=== PATIENT | male | born 1935 | race Caucasian/White ===

== ENCOUNTER 2023-07-23 15:32 | Inpatient (IN) | payer MEDICARE, BC, SELFPAY ==
[2023-07-21] VITALS (14 sets, daily range): BP systolic 125–183; BP diastolic 58–94; PULSE 90–91; BMI 30.3
[2023-07-21 08:20] LABS: COVID-19 Antigen Negative (Negative)
--- NOTE | 2023-07-21 08:26 | ED.MUSCINJ ---
HPI-Injury
General
Chief Complaint: Fall
Source: patient
Exam Limitations: none
Time Seen by Provider: 07/21/23 08:13
Travel History
Have you had any contact with someone who has COVID-19?: No
Do you have any symptoms of coronavirus? Fever > 100 degrees, chills, cough, shortness of breath, sore throat, loss of taste or smell, muscle aches, or headache?: Yes
Symptoms:: fever
History of Present Illness-Injury
Initial Injury comments:
87-year-old male on Plavix and Eliquis presents after a fall at home. He does not remember the circumstances around the fall. He states he did try to get up and fell back and hit his head again. He denies neck or back pain. No no loss of
consciousness. He feels generally weak. He also had the shakes after following. Denies chest pain abdominal pain or shortness of breath. No other complaints at this time
Past History
Past History
ED Past Medical History: Arrthythmia (a fib with ablation 02/2021), CAD, Cancer (lung), HTN, Hypercholesterolemia and Valvular disease; Negative SC
ED Past Surgical History: Cardiac (stent) and Other (lung resection for CA, cleared as of 05/29/21 no radiation or chemo.)
Social History
Tobacco: Former smoker
Alcohol: Occasional
Drug: None
Personal:
Living: with family
Employment: Retired
Family History
Family History: Other
Phy Exam
Physical Exam
Physical Exam:
General: Well-appearing male no acute respiratory distress
HEENT: Normocephalic atraumatic no obvious scalp abrasion hematoma
Heart: Regular rate and rhythm no murmurs
Lungs: Clear to auscultation bilaterally no wheezing
Extremities: No cyanosis
Skin: Warm or no rashes
Abdomen: Soft nontender nondistended
Injury Course
Orders/Labs/Results
Orders:
Orders
07/21/23 07:57
Electrocardiogram (*1) Urgent
Reason for Study: Fatigue / Weakness
EKG- Treatment ONCE
07/21/23 07:58
COVID-19 Antigen Urgent
Source: Nasal Swab
07/21/23 07:59
Influenza A+B Rapid Molecular Urgent
TISHA Source: Nasal Swab
Specimen Description:
07/21/23 08:13
CMP [Comprehensive Metabolic Panel] Urgent
Complete Blood Count/With Diff Urgent
Blood Culture Routine
TISHA Source: Blood/Venous
Specimen Description:
07/21/23 08:21
CT Head W/o Iv Contrast Urgent
Comment:
Reason For Exam: fall
CR Chest - 2 Views Urgent
Comment:
Reason For Exam: sob
07/21/23 09:42
Lidocaine 2% [Lidocaine Uro-Jet 2%] 1 syringe .ROUTE .STK-MED ONE
07/21/23 10:06
Urinalysis Reflex To Culture Urgent
Date Specimen was Collected: 07/21/23
Time Specimen was Collected: 10:05
Urine Microscopic Reflex Cult Urgent
07/21/23 10:31
Orthostatic VS- Treatment ONCE
07/21/23 10:39
Acetaminophen [Tylenol] 1,000 mg PO NOW STA
07/21/23 11:12
Piperacillin/Tazo 3.375 Gram [Zosyn] 3.375 gram in 50 ml IV NOW
Vancomycin [Vancocin] 1,500 mg 0.9% Sodium Chloride [Nss] 20 ml 0.9% Sodium Chloride 250 ml [Nss] 250 ml IV NOW
07/21/23 11:15
Blood Culture Routine
TISHA Source: Blood/Venous
Specimen Description:
07/21/23 11:16
Lactic Acid Urgent
Abnormal Lab Results
07/21/23 07/21/23
08:13 10:06
WBC 12.8 H 10^3/uL
(4.8-10.8)
RBC 4.35 L 10^6/uL
(4.70-6.10)
MCH 31.5 H pg
(27.0-31.0)
Abs Immat Gran (auto) 0.1 H 10^3/uL
(0-0.05)
Absolute Neuts (auto) 11.2 H 10^3/uL
(1.4-6.5)
Absolute Lymphs (auto) 0.6 L 10^3/uL
(1.2-3.4)
Absolute Monos (auto) 0.9 H 10^3/uL
(0.1-0.6)
Neutrophils % 87.2 H %
(42.2-75.2)
Lymphocytes % 4.6 L %
(20.5-51.1)
Glucose 125 H mg/dl
(70-99)
Total Bilirubin 5.0 H mg/dl
(0.2-1.3)
Total Protein 6.2 L g/dl
(6.3-8.2)
Ur Occult Blood Reflex Trace A
(Negative)
Urine RBC 3-6 A /HPF
(0-2)
Urine Bacteria (Reflex) Few A
(Negative)
07/21/23 08:13
07/21/23 08:13
MDM/Problems Addressed
Differential Diagnosis Includes:
Fall. Etiology unclear. Feels generally weak will check labs and infectious sources including COVID chest x-ray urinalysis. CT of the head pending.
*Critical Care Note
Total Time (30-74mins, 75-104mins- exclusive of procedures): Not Applicable
Update Note
Update Note:
Patient found to have a fever here upon reassessment temperature of 101.5. White blood cell count is 12.8. COVID flu chest x-ray and head CT all without acute findings. Of note, bilirubin is 5.0. He has a prior cholecystectomy. He has had
elevated bilirubins in the past. Tylenol given for fever will start vancomycin and Zosyn for potential bacteremia with pending blood cultures.
ED Attending Note
-
Portions of this chart may have been created with voice recognition software.� Occasional wrong word or��sound alike� substitutions may have occurred due to the inherent limitations of voice recognition software.
Discharge Plan
Departure
Patient Disposition: Admit
Date of Disposition: 07/21/23
Time of Disposition: 11:21
Presentation/result/management discussed w/ accepting MD/DO: Hospitalist
Discharge Problem:
Fever
Prescriptions:
No Action
atorvastatin 40 MG tablet
40 mg PO QPM
budesonide 0.25 MG/2 ML suspension for nebulization
0.5 mg IH BID
ipratropium bromide 0.2 MG/ML solution
0.5 mg inhalation BID
clopidogrel 75 mg Tablet
75 mg PO DAILY Qty: 30 11RF
dofetilide [Tikosyn] 250 mcg capsule
250 mcg PO Q12H Qty: 60 11RF
Eliquis 5 MG tablet
5 mg PO BID Qty: 0 0RF
isosorbide mononitrate 30 mg tablet extended release 24 hr
60 mg PO DAILY
carbidopa-levodopa 25-100 mg tablet
1 tab PO TID@07,12,17
metoprolol succinate 50 mg Tablet Extended Release 24 Hr
50 mg PO DAILY 30 Days Qty: 30 1RF
furosemide [Lasix] 40 mg tablet
80 mg PO DAILY
acetaminophen 325 mg Tablet
650 mg PO Q4HPRN PRN (Reason: SOLER, mild pain, or fever >101F) Qty: 0 0RF
Rx Instructions:
Please purchase over the counter
Referrals:
Reza Mayfield DO [Family Provider] -
Interventions
Interventions:
*Risk Screen - Suicide Last Done: 07/21/23 08:14
*Neglect/Abuse Screening Last Done: 07/21/23 08:14
ED- Fall Risk Assessment Last Done: 07/21/23 08:16
*ED COVID-19 Vaccine History Last Done: 07/21/23 08:13
ED-Musculoskeletal Assessment Last Done: 07/21/23 08:14
ED- Neurological Assessment Last Done: 07/21/23 08:14
ED-Skin Assessment Last Done: 07/21/23 08:14
[2023-07-21 08:29] LABS: % Basophils 0.3 % (0-2); % Eosinophils 0.1 % (0-6); % Immature Granulocytes 0.5 % (0-0.5); % Lymphocytes 4.6 % (20.5-51.1); % Monocytes 7.3 % (1.7-9.3); % Neutrophils 87.2 % (42.2-75.2); Absolute Immature Granulocytes 0.1 10^3/uL (0-0.05); Absolute Lymphocytes 0.6 10^3/uL (1.2-3.4); Absolute Monocytes 0.9 10^3/uL (0.1-0.6); Absolute Neutrophils 11.2 10^3/uL (1.4-6.5); Hematocrit 39.5 % (39.0-52.0); Hemoglobin 13.7 g/dL (13.0-18.0); Mean Corp Hgb Conc. 34.7 g/dL (33.0-37.0); Mean Corpuscular Hgb 31.5 pg (27.0-31.0); Mean Corpuscular Volume 90.8 fL (80.0-94.0); Mean Platelet Volume 9.2 fL (7.4-10.4); Nucleated Red Blood Cells % 0 % (-); Platelet Count 179 10^3/uL (130-400); Red Blood Cell Count 4.35 10^6/uL (4.70-6.10); Red Cell Dist. Width 14.3 % (11.5-14.5); White Blood Cell Count 12.8 10^3/uL (4.8-10.8)
[2023-07-21 08:39] LABS: ALT (SGPT) 19 U/L (0-50); AST (SGOT) 23 U/L (17-59); Albumin 3.7 g/dl (3.5-5.0); Alkaline Phosphatase 99 U/L (38-126); Blood Urea Nitrogen 19 mg/dl (9-20); Calcium 8.4 mg/dl (8.4-10.2); Carbon Dioxide 26 mmol/L (22-30); Chloride 103 mmol/L (98-107); Glucose 125 mg/dl (70-99); Potassium 4.4 mmol/L (3.5-5.1); Sodium 135 mmol/L (135-145); Total Protein 6.2 g/dl (6.3-8.2); eGFR > 60.00
[2023-07-21 10:21] LABS: Urine Albumin Trace (Neg - Trace); Urine Bilirubin Negative (Negative); Urine Character Clear (Clear); Urine Color Yellow; Urine Glucose Negative (Negative); Urine Ketone Negative (Negative); Urine Leukocyte Negative (Negative); Urine Nitrite Negative (Negative); Urine Occult Blood Trace (Negative); Urine Specific Gravity 1.015 (<1.030); Urine Urobilinogen Negative (Neg - 1+)
[2023-07-21 10:31] LABS: Urine Mucus Few
[2023-07-21 10:33] LABS: Urine Bacteria Few (Negative)
[2023-07-21] MEDS: TYLENOL 1000 MG PO (10:41)
[2023-07-21] MEDS: ZOSYN 50 IV (11:25)
--- NOTE | 2023-07-21 11:32 | HPS.HSE ---
Family Physician
-
Family Physician: Reza Mayfield
Chief Complaint
-
fall
History of Present Illness
87 y/o M with PMHx:
Coronary artery disease s/p stents
NSTEMI
Essential hypertension
Hyperlipidemia
Benign prostatic hypertrophy
Gastroesophageal reflux disease
Chronic obstructive pulmonary disease
Asymptomatic carotid stenosis, status post right carotid stent
History of pulseless electrical activity (PEA) arrest
History of atrial tachycardia
Paroxysmal atrial fibrillation with h/o ablation
Vertigo
Parkinson's disease
Hiatal hernia
Severe aortic aortoiliac disease
Diverticulosis
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
who p/w CC of fall. Due to the patient's benign prostatic hypertrophy (he has not seen his urologist in 'years'), his urinary frequency has been increasing. He is having trouble ambulating to the bathroom. Over the last 24 hours the patient has
developed weakness. Today he fell. He says he may have bumped his head but did not have loss of consciousness. He reports he has chronic cough. He has no other acute symptoms. He specifically denies chest pain, shortness of breath, nausea,
vomiting, diarrhea, fevers, headache, visual disturbances, neck stiffness, dysuria, rash, focal neurological deficit.
Medical History
Past Medical History
Past Medical History: Reports Other (as per HPI)
Additional Past Medical History:
as per HPI
Past Surgical History: Reports Other (N/A)
Social History
Tobacco: Former Smoker
Alcohol: Occasional
Drug: None
Family History
Family History: Not pertinent
Allergies / Home Medications
Allergies reflects when Allergies were last updated in [facility].
Home Medications with original date entered in [facility]
Allergy/Medication List:
Allergies
Allergy/AdvReac Type Severity Reaction Status Date / Time
atorvastatin calcium Allergy myalgias Verified 07/21/23 08:55
[From Lipitor]
lisinopril Allergy Unknown Verified 07/21/23 08:55
Home Medications
atorvastatin 40 mg tablet 40 mg PO QPM High cholesterol 02/10/21
budesonide 0.25 mg/2 mL suspension for nebulization 0.5 mg IH BID Lung/breathing issues 02/10/21
ipratropium bromide 0.02 % solution for inhalation 0.5 mg inhalation BID Lung/breathing issues 02/10/21
clopidogrel 75 mg tablet 75 mg PO DAILY heart disease/condition #30 tabs 01/24/22
apixaban 5 mg tablet (Eliquis) 5 mg PO BID Blood clot prevention/tx #0 tabs 01/30/22
dofetilide 250 mcg capsule (Tikosyn) 250 mcg PO Q12H arrhythmia #60 caps 01/30/22
carbidopa 25 mg-levodopa 100 mg tablet 1 tab PO TID@07,12,17 Neurological Condition 06/14/22
isosorbide mononitrate 30 mg tablet,extended release 24 hr 60 mg PO DAILY Heart disease/condition 06/14/22
metoprolol succinate 50 mg tablet,extended release 24 hr 50 mg PO DAILY Heart disease/condition 30 days #30 tabs 06/20/22
furosemide 40 mg tablet (Lasix) 80 mg PO DAILY heart failure 07/31/22
acetaminophen 325 mg tablet 650 mg PO Q4HPRN PRN SOLER, mild pain, or fever >101F #0 tabs 08/17/22
Review of Systems
-
History Source: Patient
A 12 point ROS was completed and negative except as noted: Yes
Physical Exam
Vital Signs
Vital Signs
Temp Pulse Resp BP Pulse Ox
101.5 F H 83 30 161/66 95
07/21/23 10:39 07/21/23 11:15 07/21/23 11:15 07/21/23 11:00 07/21/23 11:15
Physical Exam
General: Other (.)
Laboratory Results
-
07/21/23 08:13
07/21/23 08:13
Laboratory Results
Total Bilirubin 5.0 mg/dl (0.2-1.3) H 07/21/23 08:13
AST 23 U/L (17-59) 07/21/23 08:13
ALT 19 U/L (0-50) 07/21/23 08:13
Alkaline Phosphatase 99 U/L (38-126) 07/21/23 08:13
Impression/Plan
-
Gen: NAD, Awake and alert
Eyes: EOMI, no scleral icterus.
Neck: supple.
CV: RRR, +S1/S2, no m/r/g.
Resp: CTAB, no rales, wheezes, or rhonchi.
Abd: +BS, soft, NT, ND
Skin: No rashes.
Neuro: CN 2-12 intact, non-focal.
Psych: Normal mood and affect.
CXR: Low lung volumes with crowding of the central/vascular markings. Pulmonary vascularity at least top normal.
CT brain: No acute intracranial abnormality.
SIRS:
-leukocytosis and fever
-work up in ER unremarkable (including U/A, CXR, COVID/Flu NEG)
-Vanco/Zosyn given in ER empirically, hold further abx for now
-follow BCxs
-possibly viral or non-infectious
-no abdominal pain or abdominal symptoms so will hold off CT A/P for now
-note, bili is chronically elevated
Other problems:
Coronary artery disease s/p stents with h/o NSTEMI: Cont statin/Plavix/Imdur/BB
Essential hypertension: cont Imdur/BB
Hyperlipidemia: cont statin
Benign prostatic hypertrophy: Start flomax
Gastroesophageal reflux disease: start PPI
Chronic obstructive pulmonary disease: Continue budesonide/ipratropium. Not in acute exacerbation
Asymptomatic carotid stenosis, status post right carotid stent: Continue statin/Plavix
History of pulseless electrical activity (PEA) arrest
History of atrial tachycardia: Continue beta-kt
Paroxysmal atrial fibrillation: Continue beta-kt/Tikosyn/Eliquis
Vertigo
Parkinson's disease: Continue Sinemet
Hiatal hernia
Severe aortic aortoiliac disease
Diverticulosis
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
FULL/Eliquis/OBS/MS
[2023-07-21] MEDS: VANCOCIN 300 ML IV (11:48)
[2023-07-21] MEDS: VANCOCIN 300 MG IV (11:48)
--- NOTE | 2023-07-21 13:10 | CM ---
Cm reviewed medical records.CM met with patient and family in room. Patient confirmed demographics. Patient lives independently with spouse. Patient endorses a history of VN with [facility]. Patient denies history of SNF. Patient uses a cane for
ambulation. Patient has nebulizer. Patient is active with his PCP. Patient uses [facility] for medication services.
FLORES letter given and explained.
PLAN: home vs. SNF if funding available and recommended.
[2023-07-21] MEDS: PROTONIX 40 MG PO (13:36)
[2023-07-21] MEDS: TIKOSYN 250 MCG PO (14:06)
[2023-07-21] MEDS: SINEMET 25-100 1 TABLET PO (17:22)
[2023-07-21] MEDS: LIPITOR 40 MG PO (17:22)
[2023-07-21] MEDS: PULMICORT 0.5 MG INH (18:28)
[2023-07-21] MEDS: ATROVENT NEBULES 0.5 MG INH (18:28)
[2023-07-21] MEDS: TYLENOL 650 MG PO (19:24)
[2023-07-21] MEDS: ELIQUIS 5 MG PO (19:25)
--- NOTE | 2023-07-21 20:30 | PTCARENOTE ---
Patient with a temperature of 102.0. Tylenol given . SEWING SUPERVISOR aware, no further orders given.
[2023-07-22] VITALS (8 sets, daily range): BP systolic 121–164; BP diastolic 58–76; PULSE 75; O2SAT 94–95; BMI 31.0
[2023-07-22] MEDS: TIKOSYN 250 MCG PO ×3 (00:29→20:35)
[2023-07-22] MEDS: TYLENOL 650 MG PO ×3 (03:29→23:24)
[2023-07-22] MEDS: SINEMET 25-100 1 TABLET PO ×3 (06:58→17:19)
[2023-07-22 07:31] LABS: % Basophils 0.3 % (0-2); % Eosinophils 0.2 % (0-6); % Immature Granulocytes 0.4 % (0-0.5); % Lymphocytes 5.3 % (20.5-51.1); % Monocytes 6.6 % (1.7-9.3); % Neutrophils 87.2 % (42.2-75.2); Absolute Lymphocytes 0.5 10^3/uL (1.2-3.4); Absolute Monocytes 0.6 10^3/uL (0.1-0.6); Absolute Neutrophils 8.3 10^3/uL (1.4-6.5); Hematocrit 39.7 % (39.0-52.0); Hemoglobin 14.1 g/dL (13.0-18.0); Mean Corp Hgb Conc. 35.5 g/dL (33.0-37.0); Mean Corpuscular Hgb 31.5 pg (27.0-31.0); Mean Corpuscular Volume 88.6 fL (80.0-94.0); Mean Platelet Volume 9.3 fL (7.4-10.4); Nucleated Red Blood Cells % 0 % (-); Platelet Count 173 10^3/uL (130-400); Red Blood Cell Count 4.48 10^6/uL (4.70-6.10); Red Cell Dist. Width 14.6 % (11.5-14.5); White Blood Cell Count 9.5 10^3/uL (4.8-10.8)
[2023-07-22] MEDS: PULMICORT 0.5 MG INH ×2 (07:46→19:17)
[2023-07-22] MEDS: ATROVENT NEBULES 0.5 MG INH ×2 (07:47→19:18)
[2023-07-22 07:56] LABS: Blood Urea Nitrogen 22 mg/dl (9-20); Calcium 8.3 mg/dl (8.4-10.2); Carbon Dioxide 26 mmol/L (22-30); Chloride 101 mmol/L (98-107); Estimated Creatinine Clearance 57 ml/min; Glucose 118 mg/dl (70-99); Potassium 3.8 mmol/L (3.5-5.1); Sodium 136 mmol/L (135-145); eGFR > 60.00
[2023-07-22] MEDS: PLAVIX 75 MG PO (08:23)
[2023-07-22] MEDS: PROTONIX 40 MG PO (08:23)
[2023-07-22] MEDS: TOPROL XL 50 MG PO (08:23)
[2023-07-22] MEDS: ELIQUIS 5 MG PO ×2 (08:24→20:35)
[2023-07-22] MEDS: IMDUR (EXTENDED RELEASE) 60 MG PO (08:24)
[2023-07-22] MEDS: VITAMIN B-12 1000 MCG PO (08:24)
[2023-07-22] MEDS: VITAMIN C 500 MG PO (08:24)
--- NOTE | 2023-07-22 10:49 | W.PN.HOSP.TC ---
Today's Communication/Plan
-
continue to monitor off abx. Follow BCxs for 48 hours.
Assessment / Plan
Assessment / Plan
Gen: remains NAD, Awake and alert
Eyes: EOMI, no scleral icterus.
Neck: supple.
CV: remains RRR, +S1/S2, no m/r/g.
Resp: remains CTAB, no rales, wheezes, or rhonchi.
Abd: +BS, soft, NT, ND
Skin: No rashes.
Neuro: CN 2-12 intact, non-focal.
Psych: Normal mood and affect.
CXR: Low lung volumes with crowding of the central/vascular markings. Pulmonary vascularity at least top normal.
CT brain: No acute intracranial abnormality.
SIRS:
-leukocytosis and fever. Leukocytosis has resolved.
-work up in ER unremarkable (including U/A, CXR, COVID/Flu NEG)
-Vanco/Zosyn given in ER empirically, hold further abx for now
-follow BCxs (NGTD)
-possibly viral or non-infectious
-no abdominal pain or abdominal symptoms so will hold off CT A/P for now
-note, bili is chronically elevated
Other problems:
Coronary artery disease s/p stents with h/o NSTEMI: Cont statin/Plavix/Imdur/BB
Essential hypertension: cont Imdur/BB
Hyperlipidemia: cont statin
Benign prostatic hypertrophy: Start flomax
Gastroesophageal reflux disease: start PPI
Chronic obstructive pulmonary disease: Continue budesonide/ipratropium.� Not in acute exacerbation
Asymptomatic carotid stenosis, status post right carotid stent: Continue statin/Plavix
History of pulseless electrical activity (PEA) arrest
History of atrial tachycardia: Continue beta-kt
Paroxysmal atrial fibrillation: Continue beta-kt/Tikosyn/Eliquis
Vertigo
Parkinson's disease: Continue Sinemet
Hiatal hernia
Severe aortic aortoiliac disease
Diverticulosis
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
FULL/Eliquis/OBS/MS
Anticipated Discharge: Within 24 hours
Subjective/Interval History
-
Date of Service: July 22, 2023
Objective Data
-
Labs:
Laboratory Results
07/22/23
07:09
WBC 9.5
Hgb 14.1
Hct 39.7
Plt Count 173
Sodium 136
Potassium 3.8
Chloride 101
Carbon Dioxide 26
BUN 22 H
Creatinine 0.9
Glucose 118 H
Calcium 8.3 L
Vital Signs:
Vital Signs
Temp Pulse Resp BP Pulse Ox
98.8 F 86 16 164/69 96
07/22/23 07:00 07/22/23 07:50 07/22/23 07:50 07/22/23 07:00 07/22/23 07:50
I&O
07/21/23 07/22/23 07/23/23
06:59 06:59 06:59
Intake Total 1060 / 1060
Output Total 120 / 120 150 / 150
Balance 940 / 940 -150 / -150
--- NOTE | 2023-07-22 11:25 | CM ---
Patient seen, discussed PT recommendation of SNF. CM discussed patient would be private pay as patient is observation status. CM will call to discuss recommendation with patients , Olivia. CM left voicemail for Olivia on home phone and cell phone.
CM will continue to follow for discharge planning needs.
Plan; SNF recommendation, patient will be private pay under observation status.
[2023-07-22] MEDS: LIPITOR 40 MG PO (17:19)
[2023-07-23 03:09] VITALS: BP 155/77
[2023-07-23 06:00] VITALS: BMI 31.2
[2023-07-23 06:17] LABS: % Basophils 0.3 % (0-2); % Eosinophils 0.4 % (0-6); % Immature Granulocytes 0.6 % (0-0.5); % Lymphocytes 8.9 % (20.5-51.1); % Monocytes 8.4 % (1.7-9.3); % Neutrophils 81.4 % (42.2-75.2); Absolute Immature Granulocytes 0.1 10^3/uL (0-0.05); Absolute Lymphocytes 0.8 10^3/uL (1.2-3.4); Absolute Monocytes 0.8 10^3/uL (0.1-0.6); Absolute Neutrophils 7.3 10^3/uL (1.4-6.5); Hemoglobin 13.2 g/dL (13.0-18.0); Mean Corp Hgb Conc. 34.7 g/dL (33.0-37.0); Mean Corpuscular Hgb 31.6 pg (27.0-31.0); Mean Corpuscular Volume 90.9 fL (80.0-94.0); Mean Platelet Volume 9.7 fL (7.4-10.4); Nucleated Red Blood Cells % 0 % (-); Platelet Count 172 10^3/uL (130-400); Red Blood Cell Count 4.18 10^6/uL (4.70-6.10); Red Cell Dist. Width 15.1 % (11.5-14.5); White Blood Cell Count 8.9 10^3/uL (4.8-10.8)
[2023-07-23] MEDS: SINEMET 25-100 1 TABLET PO ×3 (06:36→17:55)
[2023-07-23 06:38] LABS: ALT (SGPT) 17 U/L (0-50); AST (SGOT) 30 U/L (17-59); Albumin 3.3 g/dl (3.5-5.0); Alkaline Phosphatase 81 U/L (38-126); Blood Urea Nitrogen 30 mg/dl (9-20); Calcium 8.2 mg/dl (8.4-10.2); Carbon Dioxide 27 mmol/L (22-30); Chloride 102 mmol/L (98-107); Estimated Creatinine Clearance 46 ml/min; Glucose 112 mg/dl (70-99); Sodium 133 mmol/L (135-145); Total Bilirubin 3.2 mg/dl (0.2-1.3); eGFR > 60.00
[2023-07-23 07:20] VITALS: BP 166/76
[2023-07-23] MEDS: ATROVENT NEBULES 0.5 MG INH ×2 (07:54→20:27)
[2023-07-23] MEDS: PULMICORT 0.5 MG INH ×2 (07:54→20:27)
[2023-07-23] MEDS: IMDUR (EXTENDED RELEASE) 60 MG PO (09:41)
[2023-07-23] MEDS: TYLENOL 650 MG PO (09:41)
[2023-07-23] MEDS: VITAMIN C 500 MG PO (09:41)
[2023-07-23] MEDS: VITAMIN B-12 1000 MCG PO (09:41)
[2023-07-23] MEDS: TIKOSYN 250 MCG PO ×2 (09:42→21:15)
[2023-07-23] MEDS: ELIQUIS 5 MG PO ×2 (09:42→21:15)
[2023-07-23] MEDS: PROTONIX 40 MG PO (09:42)
[2023-07-23] MEDS: PLAVIX 75 MG PO (09:42)
[2023-07-23] MEDS: TOPROL XL 50 MG PO (09:42)
[2023-07-23 11:15] VITALS: BP 146/69
--- NOTE | 2023-07-23 11:17 | CM ---
Addendum entered by Lili De La Cruz 07/23/23 16:24:
CM received TT, patient switched to inpatient status. CM met with patient, patients , and son bedside, discussed switched to inpatient status. CM discussed SNF recommendation with patient, son, and . Patient not agreeable to SNF, would like
to return home with [facility]. CM will send referral in [facility].
Original Note:
CM received call from patients son, Nelson. Nelson reports he or his sister would be person to contact at their mother has a hard time checking her voicemail. CM discussed PT recommendation of SNF, discussed as patient is observation status, SNF stay
would be private pay. Nelson reports this would not be an option, and his dad would prefer to return home. Nelson reports his father has worked with [employer] in the past and was also doing outpatient PT at [place], along with cardiac rehab.
Nelson reports his father lives in a single story home and otherwise is independent until coming to the hospital. Nelson reports himself or his sister will pick patient up when he is ready for discharge. CM will continue to follow for discharge
planning needs.
Plan; home with [facility] when stable.
[2023-07-23 11:25] LABS: Procalcitonin 0.19 ng/ml (0.0-0.25)
--- NOTE | 2023-07-23 12:41 | W.PN.HOSP.TC ---
Addendum entered and electronically signed by Jovani Keith MD 07/23/23 17:39:
called spouse and d/w case in details over the phone.
Addendum entered and electronically signed by Jovani Keith MD 07/23/23 16:36:
called spouse to update but no response. Left VM.
Original Note:
Today's Communication/Plan
-
Sputum sample.
Tylenol as needed
Chest x-ray repeat noted
Monitor temperature and fever curve
Assessment / Plan
Assessment / Plan
CXR: Low lung volumes with crowding of the central/vascular markings. Pulmonary vascularity at least top normal.
CT brain: No acute intracranial abnormality.
Sepsis likely secondary to viral bronchitis
-leukocytosis and fever. Leukocytosis has resolved.
-work up in ER unremarkable (including U/A, CXR, COVID/Flu NEG)
-Vanco/Zosyn given in ER empirically, hold further abx for now
-follow BCxs (NGTD)
-Check RSV. Pro-Sami noted and not impressive
-Repeat chest x-ray noted negative for any acute infiltrates
-No upper or lower extremity asymmetric swelling
-Will order sputum sample
-no abdominal pain or abdominal symptoms so will hold off CT A/P for now
-no Body rash noted
-note, bili is chronically elevated
Other problems:
Coronary artery disease s/p stents with h/o NSTEMI: Cont statin/Plavix/Imdur/BB
Essential hypertension: cont Imdur/BB
Hyperlipidemia: cont statin
Benign prostatic hypertrophy: Start flomax
Gastroesophageal reflux disease: start PPI
Chronic obstructive pulmonary disease: Continue budesonide/ipratropium.� Not in acute exacerbation
Asymptomatic carotid stenosis, status post right carotid stent: Continue statin/Plavix
History of pulseless electrical activity (PEA) arrest
History of atrial tachycardia: Continue beta-kt
Paroxysmal atrial fibrillation: Continue beta-kt/Tikosyn/Eliquis
Vertigo
Parkinson's disease: Continue Sinemet
Hiatal hernia
Severe aortic aortoiliac disease
Diverticulosis
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
FULL/Eliquis/
PT/OT rec SNF. Case management
Anticipated Discharge: 24 - 48 hours
Subjective/Interval History
-
Date of Service: July 23, 2023
Spiked fever earlier today
States of dry cough with mild intermittent sputum
No abdominal pain nausea vomiting or diarrhea
Denies dysuria
Objective Data
-
Labs:
Laboratory Results
07/23/23
05:28
WBC 8.9
Hgb 13.2
Hct 38.0 L
Plt Count 172
Sodium 133 L
Potassium 4.0
Chloride 102
Carbon Dioxide 27
BUN 30 H
Creatinine 1.1
Glucose 112 H
Calcium 8.2 L
Total Bilirubin 3.2 H
AST 30
ALT 17
Alkaline Phosphatase 81
Vital Signs:
Vital Signs
Temp Pulse Resp BP Pulse Ox
102.8 F H 90 16 166/76 96
07/23/23 07:20 07/23/23 07:54 07/23/23 07:54 07/23/23 07:20 07/23/23 07:54
I&O
07/22/23 07/23/23 07/24/23
06:59 06:59 06:59
Intake Total 1060 / 1060 1440 / 1440
Output Total 120 / 120 375 / 375
Balance 940 / 940 1065 / 1065
Physical Exam
-
General: Well Developed, Well Nourished, No Apparent Distress and Other (warm to touch )
HEENT: Moist Mucous Membranes
Respiratory: Clear to Auscultation
Cardiac: Regular Rhythm, S1/S2 and Murmur (aortic systolic ); Negative Rub or JVD
GI: Soft, Nontender, Nondistended and Normal Bowel Sounds
Musculoskeletal: No Edema
Neuro: Awake, AO x 3, No Motor Deficits and Nonfocal/Grossly Intact
Psych: Calm
[2023-07-23 15:20] VITALS: BP 127/65
[2023-07-23] MEDS: LIPITOR 40 MG PO (17:55)
[2023-07-23 20:35] VITALS: BP 167/75
[2023-07-23 23:27] VITALS: BP 148/70
[2023-07-24 05:08] VITALS: BP 162/79; BMI 31.5
[2023-07-24] MEDS: SINEMET 25-100 1 TABLET PO ×2 (06:05→11:42)
[2023-07-24 07:35] VITALS: BP 158/75
[2023-07-24] MEDS: PULMICORT 0.5 MG INH (07:39)
[2023-07-24] MEDS: ATROVENT NEBULES 0.5 MG INH (07:39)
[2023-07-24] MEDS: IMDUR (EXTENDED RELEASE) 60 MG PO (09:05)
[2023-07-24] MEDS: TIKOSYN 250 MCG PO (09:05)
[2023-07-24] MEDS: MUCINEX 600 MG PO (09:07)
[2023-07-24] MEDS: ELIQUIS 5 MG PO (09:07)
[2023-07-24] MEDS: VITAMIN B-12 1000 MCG PO (09:08)
[2023-07-24] MEDS: PROTONIX 40 MG PO (09:08)
[2023-07-24] MEDS: VITAMIN C 500 MG PO (09:08)
[2023-07-24] MEDS: TOPROL XL 50 MG PO (09:08)
[2023-07-24] MEDS: PLAVIX 75 MG PO (09:08)
[2023-07-24 11:05] VITALS: BP 149/58
--- NOTE | 2023-07-24 11:49 | W.PN.HOSP.TC ---
Today's Communication/Plan
-
dc home
Assessment / Plan
Assessment / Plan
CXR: Low lung volumes with crowding of the central/vascular markings. Pulmonary vascularity at least top normal.
CT brain: No acute intracranial abnormality.
Sepsis likely secondary to viral bronchitis
-leukocytosis and fever. Leukocytosis has resolved.
-work up unremarkable (including U/A, CXR, COVID/Flu NEG)
-Vanco/Zosyn given in ER empirically, hold further abx for now
-follow BCxs (NGTD)
-Check RSV negative. Pro-Sami noted and not impressive
-Repeat chest x-ray noted negative for any acute infiltrates
-No upper or lower extremity asymmetric swelling
-Will order sputum sample and will provide a sample
-no abdominal pain or abdominal symptoms so will hold off CT A/P for now
-no Body rash noted
-note, bili is chronically elevated
Other problems:
Coronary artery disease s/p stents with h/o NSTEMI: Cont statin/Plavix/Imdur/BB
Essential hypertension: cont Imdur/BB
Hyperlipidemia: cont statin
Benign prostatic hypertrophy: Start flomax
Gastroesophageal reflux disease: start PPI
Chronic obstructive pulmonary disease: Continue budesonide/ipratropium.� Not in acute exacerbation
Asymptomatic carotid stenosis, status post right carotid stent: Continue statin/Plavix
History of pulseless electrical activity (PEA) arrest
History of atrial tachycardia: Continue beta-kt
Paroxysmal atrial fibrillation: Continue beta-kt/Tikosyn/Eliquis
Vertigo
Parkinson's disease: Continue Sinemet
Hiatal hernia
Severe aortic aortoiliac disease
Diverticulosis
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
FULL/Eliquis/
PT/OT rec SNF. Case management. Patient and family refused SNF and wants home with [facility]N.
More than 30 minutes spent in discharge including
Final examination of the patient
Summarizing hospital stay
Instructions for continuing care to all relevant caregivers
Preparation of discharge records, prescriptions, and referral forms
Total time spent (in minutes): 40
Anticipated Discharge: Today
Subjective/Interval History
-
Date of Service: July 24, 2023
Feeling better
States improvement of cough
Afebrile for 24 hours
Objective Data
-
Vital Signs:
Vital Signs
Temp Pulse Resp BP Pulse Ox
98.3 F 77 18 149/58 96
07/24/23 11:05 07/24/23 11:05 07/24/23 11:05 07/24/23 11:05 07/24/23 11:05
I&O
07/23/23 07/24/23 07/25/23
06:59 06:59 06:59
Intake Total 1440 / 1440 960 / 960
Output Total 375 / 375
Balance 1065 / 1065 960 / 960
Physical Exam
-
General: Well Developed, Well Nourished and No Apparent Distress
HEENT: Normocephalic, Atraumatic and Moist Mucous Membranes
Respiratory: Clear to Auscultation
Cardiac: Regular Rhythm, S1/S2 and Murmur (aortic systolic ); Negative Rub or JVD
GI: Soft, Nontender, Nondistended and Normal Bowel Sounds
Musculoskeletal: No Edema
Neuro: Awake, Alert, Oriented, AO x 3, No Motor Deficits and Nonfocal/Grossly Intact
Psych: Calm
--- NOTE | 2023-07-24 11:52 | W.DCSUMMARY ---
Discharge Summary
Discharge Data
Date of Admission: 07/23/23
Date of Discharge: 07/24/23
-
Pending Results: No
Hospital Course
88-year-old male past medical history of CAD status post stents, hypertension and hyperlipidemia, BPH, GERD, COPD, carotid stenosis status post stent, history of PEA, atrial tachycardia, atrial fibrillation, regular, Parkinson disease, hiatal
hernia, aortic iliac disease, aortic valve replacement who is presented with complaints of weakness and fever. Patient underwent extensive infectious workup UA was found to be negative. Patient remained chest x-ray x 2 which is negative for acute
infiltrate. Patient COVID, influenza and RSV was checked and found to be negative. Blood cultures remain negative. Patient with fever and cough likely secondary to viral bronchitis. Patient WBC and fever curve down trended. Patient was
tolerating diet. Patient was eval by physical and Occupational Therapy and recommending SNF which patient and family refused. Patient be discharged home with VN.
Discharge Plan
-
Patient Disposition: Home with Home Care
Discharge Diagnosis/Procedures: Sepsis secondary to viral bronchitis
Condition: Fair
Diet: As tolerated
Activity: With assistance and As tolerated
Driving Restrictions: Not until seen by your Dr
Other Services: VN
Referrals:
Reza Mayfield DO [Family Provider] - in less than 1 week
Prescriptions:
New
benzonatate 100 mg Capsule
200 mg PO TIDPRN PRN (Reason: severe cough) Qty: 30 0RF
guaifenesin 600 mg Tablet Extended Release 12hr
600 mg PO Q12 Qty: 30 0RF
Continued
atorvastatin 40 MG tablet
40 mg PO QPM
budesonide 0.25 MG/2 ML suspension for nebulization
0.5 mg IH R BID
ipratropium bromide 0.2 MG/ML solution
0.5 mg inhalation R BID
clopidogrel 75 mg Tablet
75 mg PO DAILY Qty: 30 11RF
dofetilide [Tikosyn] 250 mcg capsule
250 mcg PO Q12H Qty: 60 11RF
Eliquis 5 MG tablet
5 mg PO BID Qty: 0 0RF
isosorbide mononitrate 30 mg tablet extended release 24 hr
60 mg PO DAILY
carbidopa-levodopa 25-100 mg tablet
1 tab PO TID@07,12,17
metoprolol succinate 50 mg Tablet Extended Release 24 Hr
50 mg PO DAILY 30 Days Qty: 30 1RF
cyanocobalamin (vitamin B-12) 1,000 mcg Tablet
1,000 mcg PO DAILY
ascorbic acid (vitamin C) [Vitamin C] 500 mg Tablet
500 mg PO DAILY
Discontinued
(DME) Acapella Device
MISCELLANEOUS
Discharge Orders:
Discharge Patient (As Directed); Ordered 07/24/23
Ordered By: Jovani Keith
Discharge Date and Time
Discharge Date/Time: 07/24/23 15:14
[2023-07-24 12:34] VITALS: BP 156/75; PULSE 70
[2023-07-24 12:40] VITALS: BP 156/75; PULSE 70
== END 2023-07-24 15:14 | disposition home health service (06) | DRG 872 ==
LOC: 4 EAST ACU 15:32
PROVIDERS: Physician Assistant; ADMITTING PHYSICIAN Internal Medicine; ATTENDING PHYSICIAN Hospitalist; EMERGENCY PHYSICIAN Emergency Medicine; FAMILY PHYSICIAN Internal Medicine
DX: A41.89 Other specified sepsis (principal); I25.10 Atherosclerotic heart disease of native coronary artery without angina pectoris; I10 Essential (primary) hypertension; E78.00 Pure hypercholesterolemia, unspecified; N40.0 Benign prostatic hyperplasia without lower urinary tract symptoms; K21.9 Gastro-esophageal reflux disease without esophagitis; J44.89 Other specified chronic obstructive pulmonary disease; I48.0 Paroxysmal atrial fibrillation; G20.A1 Parkinson's disease without dyskinesia, without mention of fluctuations; J20.8 Acute bronchitis due to other specified organisms; I25.2 Old myocardial infarction
CPT/HCPCS: 70450; 71046; 80048; 80053; 81003; 81015; 83605; 84145; 85025; 87040; 87502; 87807; 87811; 93005; 94640; 96365; 96367; 97116; 97162; 97166; 97530; 97535; 99285

== ENCOUNTER 2023-10-03 17:39 | Inpatient (IN) | payer MEDICARE, BC, SELFPAY ==
[2023-10-03] VITALS (15 sets, daily range): BP systolic 115–166; BP diastolic 59–97; BMI 31.3; BMI 30.8
--- NOTE | 2023-10-03 11:52 | ED.GENMED ---
History of Present Illness
General
Chief Complaint: Chest Pain
Source: patient and spouse
Time Seen by Provider: 10/03/23 11:38
Travel History
Have you had any contact with someone who has COVID-19?: No
Do you have any symptoms of coronavirus? Fever > 100 degrees, chills, cough, shortness of breath, sore throat, loss of taste or smell, muscle aches, or headache?: No
History of Present Illness
History of Present Illness:
88-year-old male with extensive cardiac and pulmonary past medical history presenting to the emergency department from outpatient echocardiogram where patient was scheduled to have an echocardiogram today but upon getting there told them he was
feeling chest discomfort, shortness of breath and palpitations, on arrival to the emergency department stating that the chest discomfort and shortness of breath seems to be improved but he is still experiencing the palpitations. Patient's
echocardiogram was believed to be routine monitoring as patient has a history of valvular disease and atrial fibrillation has not had an echocardiogram in around a year. Patient has no other concerns at this time including fevers, chills, rigors,
cough or any other concerns. Patient is anticoagulated on both Eliquis and Plavix. Follows with paddock judge Dr. Banks.
Past History
Past History
ED Past Medical History: Arrthythmia (a fib with ablation 02/2021), CAD, Cancer (lung), HTN, Hypercholesterolemia and Valvular disease; Negative [place]
ED Past Surgical History: Cardiac (stent), Cholecystectomy, Orthopedic and Other (lung resection for CA, cleared as of 05/29/21 no radiation or chemo.)
Social History
Tobacco: Former smoker
Alcohol: Occasional
Drug: None
Personal:
Living: with family
Employment: Retired
Family History
Family History: Other
Review of Systems
Review of Systems
All Other Systems: ROS reviewed and negative except as documented in HPI and ROS
Phy Exam
Physical Exam
Physical Exam:
GENERAL: Alert , in no apparent distress
EYE: Clear conjunctiva
NECK: Supple
ENT: o/p clr, mmm.
CARDIAC: Irregularly irregular, tachycardic rate between 110 and 135 bpm
LUNGS: Clear breath sounds bilaterally, no acute respiratory distress,
NEUROLOGICAL: Alert and oriented
SKIN: Warm and dry, skin intact.
MUSCULOSKELETAL: No edema, well perfused.
PSYCH: Normal and appropriate interaction.
Scores
Heart Failure Risk
Heart Failure Risk Score: Not Applicable
Heart Score for Chest Pain Patients
STEMI patient?: Not applicable
Withdrawal Assessment of Alcohol
Withdrawal Assessment Completed?: Not applicable
Course
Orders/Labs/Results
Orders:
Orders
10/03/23 11:06
EKG [Electrocardiogram (*1)] Urgent
Reason for Study: Chest Pain
EKG- Treatment ONCE
10/03/23 11:44
Diltiazem HCl [Cardizem] 10 mg IV NOW STA
10/03/23 11:54
Basic Metabolic Panel Urgent
Complete Blood Count/With Diff Urgent
Magnesium Urgent
TSH Urgent
Troponin I Urgent
10/03/23 14:15
Diltiazem 125 mg/125 ml Nss [Cardizem] 125 mg in 125 ml IV PER PROTOCOL
Initial dose in mg/hr, then titrate:: 5
Titrate to keep:: Heart rate 80-100 bpm
Titrate by mg/hr:: 5 mg/hr
Frequency of titrations (minutes):: 15
Maximum dose in mg/hr:: 15
10/04/23 07:00
Echo 2D MMode Color/Doppler Routine
Reason for Study: afib, valvular disease
Abnormal Lab Results
10/03/23
11:54
RBC 4.66 L 10^6/uL
(4.70-6.10)
MCH 31.1 H pg
(27.0-31.0)
RDW 14.6 H %
(11.5-14.5)
Abs Immat Gran (auto) 0.1 H 10^3/uL
(0-0.05)
Absolute Neuts (auto) 8.5 H 10^3/uL
(1.4-6.5)
Absolute Lymphs (auto) 1.0 L 10^3/uL
(1.2-3.4)
Neutrophils % 82.3 H %
(42.2-75.2)
Lymphocytes % 9.8 L %
(20.5-51.1)
Sodium 134 L mmol/L
(135-145)
Glucose 152 H mg/dl
(70-99)
10/03/23 11:54
10/03/23 11:54
Vital Signs
Initial and Last Documented VS:
Initial Vital Signs
Temp Pulse Resp BP Pulse Ox
97.6 F 117 18 120/90 97
10/03/23 11:10 10/03/23 11:10 10/03/23 11:10 10/03/23 11:10 10/03/23 11:10
Last Documented Vital Signs
Temp Pulse Resp BP Pulse Ox
97.6 F 119 24 127/74 96
10/03/23 11:10 10/03/23 14:30 10/03/23 14:30 10/03/23 14:00 10/03/23 12:30
MDM/Problems Addressed
Differential Diagnosis Includes:
Cardiac dysrhythmia, valvular dysfunction, ACS, less concern for an infectious etiology
MDM/Problems Addressed:
88-year-old male presenting to the emergency department for evaluation after he was supposed to undergo outpatient echocardiogram as part of routine monitoring of his chronic cardiac complications but upon getting to the exam area was noted to be
experiencing shortness of breath, chest discomfort and palpitations. On arrival to the emergency department patient was found to be in atrial fibrillation with rapid ventricular rate between 110 and 135 bpm. I suspect the arrhythmia to be the main
cause of patient's symptoms as he notes that he has not had any A-fib episodes since his valvular surgery. Patient is anticoagulated on Eliquis and Plavix. He notes previous ablations but never cardioversions. Will attempt to further rate control
with Cardizem IV. Will also discuss with cardiology in hopes to obtain patient's echocardiogram here.
Chronic conditions affecting care: Arrhythmia
Acute Exacerbation and/or Progression of Chronic Illness: Arrhythmia
*Pulse Oximetry
Patient hypoxic: no
*EKG
Interpreted by ED Provider?: Yes
Comparison EKG: changes noted
Heart Rate: 117
Rate: tachycardiac
Rhythm: a-fib
Sunflower: normal axis
Ischemia: ST depression (Anterolateral leads but unchanged from previous)
*Drum Sander Interpretation
Rate: tachycardiac
Rhythm: a-fib
*Critical Care Note
Total Time (30-74mins, 75-104mins- exclusive of procedures): Not Applicable
Data Reviewed
Review of Other/Old Records Reveals: Labs, Records and Testing
Source: patient, records and spouse
Patient Management
Discussion with other providers: Data Integration Analyst
Escalation/DeEscalation of care consider admission/obs:
11:45 AM: Notified on-call paddock judge, Dr. Brewster, who is okay with us ordering echocardiogram here.
12:10 PM: Following IV Cardizem bolus patient's heart rate now in the 80s but still remains in A-fib.
1:40 PM: Patient's heart rate went back to 120 to 130 bpm. He was started on a Cardizem drip. Due to patient's age and past medical history I do not believe he is a good candidate for emergency department synchronized electrical cardioversion.
Oh in agreement. Plan will be to admit to hospitalist service with cardiology team and consult. Hospitalist team for continued evaluation and treatment patient otherwise remains hemodynamically stable.
ED Attending Note
-
Portions of this chart may have been created with voice recognition software.� Occasional wrong word or��sound alike� substitutions may have occurred due to the inherent limitations of voice recognition software.
Discharge Plan
Departure
Patient Disposition: Admit
Date of Disposition: 10/03/23
Time of Disposition: 14:39
Presentation/result/management discussed w/ accepting MD/DO: Hospitalist
Discharge Problem:
Atrial fibrillation with rapid ventricular response
Prescriptions:
No Action
atorvastatin 40 MG tablet
40 mg PO QPM
budesonide 0.25 MG/2 ML suspension for nebulization
0.5 mg IH R BID
ipratropium bromide 0.2 MG/ML solution
0.5 mg inhalation R BID
clopidogrel 75 mg Tablet
75 mg PO DAILY Qty: 30 11RF
dofetilide [Tikosyn] 250 mcg capsule
250 mcg PO Q12H Qty: 60 11RF
Eliquis 5 MG tablet
5 mg PO BID Qty: 0 0RF
isosorbide mononitrate 30 mg tablet extended release 24 hr
60 mg PO DAILY
carbidopa-levodopa 25-100 mg tablet
1 tab PO TID@,,17
metoprolol succinate 50 mg Tablet Extended Release 24 Hr
50 mg PO DAILY 30 Days Qty: 30 1RF
ascorbic acid (vitamin C) [Vitamin C] 500 mg Tablet
500 mg PO DAILY
cholecalciferol (vitamin D3) [Vitamin D3] 25 mcg (1,000 unit) Tablet
25 mcg PO DAILY
Referrals:
Reza Mayfield DO [Family Provider] -
Interventions
Interventions:
*Risk Screen - Suicide Last Done: 10/03/23 11:10
*General Assessment Last Done: 10/03/23 11:10
*Neglect/Abuse Screening Last Done: 10/03/23 11:10
ED- Fall Risk Assessment Last Done: 10/03/23 11:57
*ED COVID-19 Vaccine History Last Done: 10/03/23 11:10
ED- Cardiac Assessment Last Done: 10/03/23 11:39
Discharge Date and Time
Print Language: NIGERIAN
[2023-10-03] MEDS: CARDIZEM 10 MG IV (11:55)
[2023-10-03 12:14] LABS: % Basophils 0.5 % (0-2); % Eosinophils 0.7 % (0-6); % Immature Granulocytes 0.5 % (0-0.5); % Lymphocytes 9.8 % (20.5-51.1); % Monocytes 6.2 % (1.7-9.3); % Neutrophils 82.3 % (42.2-75.2); Absolute Basophils 0.1 10^3/uL (0-0.2); Absolute Eosinophils 0.1 10^3/uL (0-0.7); Absolute Immature Granulocytes 0.1 10^3/uL (0-0.05); Absolute Monocytes 0.6 10^3/uL (0.1-0.6); Absolute Neutrophils 8.5 10^3/uL (1.4-6.5); Hematocrit 40.6 % (39.0-52.0); Hemoglobin 14.5 g/dL (13.0-18.0); Mean Corp Hgb Conc. 35.7 g/dL (33.0-37.0); Mean Corpuscular Hgb 31.1 pg (27.0-31.0); Mean Corpuscular Volume 87.1 fL (80.0-94.0); Mean Platelet Volume 9.3 fL (7.4-10.4); Nucleated Red Blood Cells % 0 % (-); Platelet Count 220 10^3/uL (130-400); Red Blood Cell Count 4.66 10^6/uL (4.70-6.10); Red Cell Dist. Width 14.6 % (11.5-14.5); White Blood Cell Count 10.3 10^3/uL (4.8-10.8)
[2023-10-03 12:17] LABS: Blood Urea Nitrogen 20 mg/dl (9-20); Calcium 8.9 mg/dl (8.4-10.2); Carbon Dioxide 25 mmol/L (22-30); Chloride 107 mmol/L (98-107); Estimated Creatinine Clearance 63 ml/min; Glucose 152 mg/dl (70-99); Magnesium 1.9 mg/dl (1.6-2.3); Potassium 4.2 mmol/L (3.5-5.1); Sodium 134 mmol/L (135-145); eGFR > 60.00
[2023-10-03 12:28] LABS: Troponin I 0.022 ng/ml
[2023-10-03 12:48] LABS: TSH 2.53 uIU/ml (0.47-4.68)
[2023-10-03] MEDS: CARDIZEM 125 IV ×2 (14:15→22:09)
--- NOTE | 2023-10-03 15:03 | CON.CAR ---
Addendum entered and electronically signed by Harpreet Taylor MD 10/03/23 16:47:
Attending addendum: Patient seen and examined. PA note reviewed and findings independently confirmed by me. Briefly, this is an 88-year-old gentleman with a prior history of coronary artery disease, COPD, aortic stenosis treated with transcatheter
aortic valve replacement in August 2022. He underwent stenting of the LAD in May 2022 then presented to [facility] in June 2022 following a PEA arrest. He does have a history of paroxysmal atrial fibrillation. The patient reports
that he has been feeling very well. This morning he awoke and felt chest discomfort and palpitations. He has been compliant with Tikosyn and apixaban. Scheduled and presented to our office and was found to be in atrial fibrillation with a rapid
ventricular response. The initial plan was to proceed with cardioversion, however, the patient had eaten a hoagie shortly before and cardioversion was deferred. He was started on IV Cardizem drip and his heart rates have improved. He is feeling
much better and denies any chest discomfort.
Physical exam
GEN: AAO x 3. No acute distress
HEENT: NC/AT, sclera are anicteric, hearing and nares are normal. MMM
NECK: Supple. Normal JVP
LUNGS: Clear in the anterior and lateral lung cooper bilaterally. No wheezing
CV: Irregularly irregular and tachycardic Normal S1/S2. Murmur: Crescendo decrescendo upper sternal border graded 1/6 in intensity
ABD : Soft, NT, ND, No HSM. Bowel sounds are present.
EXT: No CCE
NEURO: No focal neurologic deficits
Impression/recommendations
-Atrial fibrillation:
--- Continue Tikosyn
--- Continue apixaban
--- We will plan on cardioversion. He states that he has been compliant with his Eliquis and should not need a BRAYAN
--- Transthoracic echocardiogram in a.m.
--- Heart rate control: IV Cardizem
-Aortic stenosis post TAVR:
--- Should have echocardiogram in a.m.
-Chest pressure in the setting of atrial fibrillation
--- Continue to follow troponin
--- History of coronary artery disease
-Chronic heart failure preserved LVEF
--- Seems reasonably well compensated
-Hypertension:
--- Will need good blood pressure control
-Parkinson's disease
Original Note:
Consultation
Consultation Request
Date/Time Consultation Requested: 10/03/2023
Date/Time Consultation Performed: 10/03/2023 at 1445
Requesting Provider: Vance Page PA-C
Performing Provider: Dr. Taylor
Reason for Consultation: Afib w/ RVR
Medical History
-
History of Present Illness:
HPI: Juancarlos is an 88 year old male with PMH of TAVR, CAD, PEA arrest, Chronic HFpEF, paroxysmal atrial fibrillation, hypertension, hyperlipidemia, Parkinson's disease, and COPD. Presents to [facility] for evaluation of SOB and chest tightness. He initially
presented to outpatient motorcycle assembler office for previously scheduled echocardiogram. When he got there, he admitted to feeling chest pressure and SOB and palpitations. He was brought to ER for evaluation where he was found to be in rapid atrial
fibrillation on arrival. He noted that he felt like he was in afib this morning when he woke up. He has had no missed doses of his Tikosyn or his Eliquis. Discussed option of cardioversion in the emergency department, however patient had eaten half
of a hoagie shortly before arriving, so cardioversion was deferred and plan was to admit and observe overnight. He was started on Cardizem gtt and his heart rates are improved. Cardiology consulted for evaluation. With improvement in his heart
rates, his symptoms have improved and he reports he feels excellent at this time. Chest pain, palpitations, and SOB are resolved.
PMH:
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
NSTEMI and PEA arrest 06/14/22
CPR and 4-5 rounds of Epi
CAD
Prior history of CADz with LCx and proximal LAD stents, patent by cath 05/14/2022
NSTEMI and IFR positive long diffuse mid LAD 50-60% stenosis s/p SONDRA to LAD 06/06/22
cath 06/14/22 with stable CAD, patent LAD/circ stents
Chronic HFpEF.
Paroxysmal Afib, atypical atrial flutter and atrial tachycardia
s/p PVI 03/28/15
s/p PVI and atrial flutter ablation 02/14/21
Previous Multaq therapy, stopped after 02/14/21 ablation
Chronic Tikosyn therapy since 06/2021
Chronic Eliquis therapy
HTN
Hyperlipidemia
Parkinson's disease
COPD
Past Medical History
Past Medical History: Other (In HPI)
Past Surgical History: Cardiac (TAVR, PCI of LCx and LAD, PVI 2014 and 2020), Orthopedic and Other (carotid stent)
Social History
Tobacco: Non-Smoker
Alcohol: None
Drug: None
Personal:
Living: With Family
Family History
Family History: Other (CVA)
Allergies / Home Medications
Allergy/AdvReac Type Severity Reaction Status Date / Time
atorvastatin calcium Allergy myalgias Verified 10/03/23 11:14
[From Lipitor]
lisinopril Allergy Unknown Verified 10/03/23 11:14
�Medication �Instructions �Recorded �Confirmed �Type
atorvastatin 40 mg tablet 40 mg PO QPM High cholesterol 02/10/21 10/03/23 History
budesonide 0.25 mg/2 mL suspension 0.5 mg IH R BID Lung/breathing 02/10/21 10/03/23 History
for nebulization issues
ipratropium bromide 0.02 % 0.5 mg inhalation R BID 02/10/21 10/03/23 History
solution for inhalation Lung/breathing issues
clopidogrel 75 mg tablet 75 mg PO DAILY heart 01/24/22 10/03/23 Rx
disease/condition #30 tabs
apixaban 5 mg tablet (Eliquis) 5 mg PO BID Blood clot 01/30/22 10/03/23 Rx
prevention/tx #0 tabs
dofetilide 250 mcg capsule 250 mcg PO Q12H arrhythmia #60 caps 01/30/22 10/03/23 Rx
(Tikosyn)
carbidopa 25 mg-levodopa 100 mg 1 tab PO TID@07,12,17 Neurological 06/14/22 10/03/23 History
tablet Condition
isosorbide mononitrate 30 mg 60 mg PO DAILY Heart 06/14/22 10/03/23 History
tablet,extended release 24 hr disease/condition
metoprolol succinate 50 mg 50 mg PO DAILY Heart 06/20/22 10/03/23 Rx
tablet,extended release 24 hr disease/condition 30 days #30 tabs
ascorbic acid (vitamin C) 500 mg 500 mg PO DAILY Supplement 07/21/23 10/03/23 History
tablet (Vitamin C)
cholecalciferol (vitamin D3) 25 25 mcg PO DAILY 10/03/23 10/03/23 History
mcg (1,000 unit) tablet (Vitamin
D3)
Review of Systems
-
History Source: Patient
All other systems: Negative unless noted
Physical Exam
Vital Signs
Temp Pulse Resp BP Pulse Ox
97.6 F 119 24 127/74 96
10/03/23 11:10 10/03/23 14:30 10/03/23 14:30 10/03/23 14:00 10/03/23 12:30
Lab Results
10/03/23 11:54
10/03/23 11:54
Troponin I 0.022 ng/ml 10/03/23 11:54
Physical Exam
General: Well Developed, Well Nourished and No Apparent Distress
HEENT: Normocephalic, Anicteric and Moist Mucous Membranes
Respiratory: Clear and Non Labored Respirations
Cardiac: S1/S2 and Irregular Rhythm
Musculoskeletal: No Clubbing, No Cyanosis and No Edema
Skin: Warm and Dry
Neuro: AO x 3 and Nonfocal/Grossly Intact
Psych: Calm
Impression / Plan
-
PCP: Dr. Mayfield
Night Filler: Dr. Banks
Impression:
Presented with SOB, palpitations, chest pressure
Paroxysmal Afib w RVR
h/o atypical atrial flutter and atrial tachycardia
s/p PVI 03/28/15
s/p PVI and atrial flutter ablation 02/14/21
Previous Multaq therapy, stopped after 02/14/21 ablation
Chronic Tikosyn therapy since 06/2021
Chronic Eliquis therapy
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
NSTEMI and PEA arrest 06/14/22
CPR and 4-5 rounds of Epi
CAD
Prior history of CADz with LCx and proximal LAD stents, patent by cath 05/14/2022
NSTEMI and IFR positive long diffuse mid LAD 50-60% stenosis s/p SONDRA to LAD 06/06/22
cath 06/14/22 with stable CAD, patent LAD/circ stents
Chronic HFpEF
HTN
Hyperlipidemia
Parkinson's disease
COPD
Echo 05/19/21: EF 70-75%, mild to mod MR, moderate to severe with mild aortic regurgitation with peak/mean 65/29 mmHg and FANY 1.0 cm sq, mild to mod PHTN with PAP 43-48 mmHg
Echo 01/08/22: EF 67%, mod LVH, no regional wall motion abnormalities, septum thicker than posterior wall.� Peak LVOT gradient at rest of 11 mmHg that increases to 38 mmHg with Valsalva. Stage III diastolic dysfunction suggestive of restrictive
filling pattern and increased filling pressures. Normal right ventricular size and function. Moderate eccentric mitral regurgitation.Mild aortic regurgitation and moderate to severe, likely severe aortic stenosis. Peak/mean 77/38 mmHg and FANY�0.98
cm2.
Echo 06/05/22: EF 75%, no WMA, aortic valve peak/mean 63/35 mmHg and FANY 1.0 cm sq, mild aortic regurgitation, mild MR
Echo 08/17/2022: EF 65 to 70%, stage II diastolic dysfunction, severe biatrial dilation, moderate MR, MAC, status post TAVR with mean gradient 6 mmHg trace AI, moderate TR, moderate to severe pulmonary hypertension
Echo 09/17/2022: EF 65 to 70%, moderate LVH, mild to moderate MR, well-seated TAVR with peak/mean gradients 19/8 mmHg, mild TR, estimated PAP 47 mmHg
Echo 10/03/2023: Study pending
Plan:
-Presented for OP echo and due to chest pressure and SOB, was sent to [facility]. Initial EKG reviewed and showed rapid Afib. Started on cardizem gtt for rate control HR improved and with this, symptoms have resolved.
-Remains in atrial fibrillation. Follow on telemetry overnight and if remains in Afib in AM, will plan for CV. Continue cardizem gtt, wean as able.
-Continue Toprol 50mg daily and Tikosyn 250mcg BID. QTc stable at 396 ms by EKG 10/02.
-Has been on uninterrupted anticoagulation with Eliquis 5mg BID, continue.
-Check echo this admission.
-Troponin 0.022. With episode of chest pain this AM, would continue to trend.
-K and mag stable at 4.2 and 1.9 respectively.
-TSH wnl at 2.53.
-BP stable, continue Imdur and Toprol.
-Continue plavix and lipitor with h/o CAD.
-Follow up visit w/ Dr. Banks arranged.
HPI: Juancarlos is an 88 year old male with PMH of TAVR, CAD, PEA arrest, Chronic HFpEF, paroxysmal atrial fibrillation, hypertension, hyperlipidemia, Parkinson's disease, and COPD. Presents to [facility] for evaluation of SOB and chest tightness. He initially
presented to outpatient motorcycle assembler office for previously scheduled echocardiogram. When he got there, he admitted to feeling chest pressure and SOB and palpitations. He was brought to ER for evaluation where he was found to be in rapid atrial
fibrillation on arrival. He noted that he felt like he was in afib this morning when he woke up. He has had no missed doses of his Tikosyn or his Eliquis. Discussed option of cardioversion in the emergency department, however patient had eaten half
of a hoagie shortly before arriving, so cardioversion was deferred and plan was to admit and observe overnight. He was started on Cardizem gtt and his heart rates are improved. Cardiology consulted for evaluation. With improvement in his heart
rates, his symptoms have improved and he reports he feels excellent at this time. Chest pain, palpitations, and SOB are resolved.
Data Reviewed
-
EKG: Tracing Personally Visualized and interpreted
Labs: Labs Reviewed by me
Old Records: Reviewed
--- NOTE | 2023-10-03 17:33 | HPS.HSE ---
Family Physician
-
Family Physician: Reza Mayfield
Chief Complaint
-
palpitations
History of Present Illness
88 y/o M hx of TAVR, CAD, hx of Chronic HFpEF, parox Afib, HTN, HLD, Parkinsons and COPD. He presents to ER For SOB, chest tightness and palpitations - this was noticed at cardiology office while visiting for routine Echo. He was promptly sent to ER
and found to be in Rapid Afib - Cardizem drip started. Patient recalls from earlier today that he felt like he might be in A. Fib.
He is on Tikosyn and Eliquis
Cardioversion was considered in ER but patient ate lunch therefore was admitted with possible Cardioversion to follow tomorrow.
Medical History
Past Medical History
Past Medical History: Reports Other (hx of TAVR, CAD, hx of Chronic HFpEF, parox Afib, HTN, HLD, Parkinsons and COPD. )
Past Surgical History: Reports Other (Cardiac (TAVR, PCI of LCx and LAD, PVI 2014 and 2020), Orthopedic and Other (carotid stent))
Social History
Tobacco: Non-smoker
Alcohol: None
Drug: None
Personal:
Living: With Family
Family History
Family History: Other (CVA)
Allergies / Home Medications
Allergies reflects when Allergies were last updated in [employer].
Home Medications with original date entered in [employer]
Allergy/Medication List:
Allergies
Allergy/AdvReac Type Severity Reaction Status Date / Time
atorvastatin calcium Allergy myalgias Verified 10/03/23 11:14
[From Lipitor]
lisinopril Allergy Unknown Verified 10/03/23 11:14
Home Medications
atorvastatin 40 mg tablet 40 mg PO QPM High cholesterol 02/10/21
budesonide 0.25 mg/2 mL suspension for nebulization 0.5 mg IH R BID Lung/breathing issues 02/10/21
ipratropium bromide 0.02 % solution for inhalation 0.5 mg inhalation R BID Lung/breathing issues 02/10/21
clopidogrel 75 mg tablet 75 mg PO DAILY heart disease/condition #30 tabs 01/24/22
apixaban 5 mg tablet (Eliquis) 5 mg PO BID Blood clot prevention/tx #0 tabs 01/30/22
dofetilide 250 mcg capsule (Tikosyn) 250 mcg PO Q12H arrhythmia #60 caps 01/30/22
carbidopa 25 mg-levodopa 100 mg tablet 1 tab PO TID@07,12,17 Neurological Condition 06/14/22
isosorbide mononitrate 30 mg tablet,extended release 24 hr 60 mg PO DAILY Heart disease/condition 06/14/22
metoprolol succinate 50 mg tablet,extended release 24 hr 50 mg PO DAILY Heart disease/condition 30 days #30 tabs 06/20/22
ascorbic acid (vitamin C) 500 mg tablet (Vitamin C) 500 mg PO DAILY Supplement 07/21/23
cholecalciferol (vitamin D3) 25 mcg (1,000 unit) tablet (Vitamin D3) 25 mcg PO DAILY 10/03/23
Review of Systems
-
A 12 point ROS was completed and negative except as noted: Yes
Physical Exam
Vital Signs
Vital Signs
Temp Pulse Resp BP Pulse Ox
97.6 F 108 21 138/59 95
10/03/23 11:10 10/03/23 15:30 10/03/23 15:30 10/03/23 15:00 10/03/23 15:42
Physical Exam
General: Well Developed and Well Nourished
HEENT: NormoCephalic and Anicteric
Cardiac: Irregular Rhythm and Tachycardia
GI: Soft and Non Tender
Neuro: AO x 3
Psych: Calm
Laboratory Results
-
10/03/23 11:54
10/03/23 11:54
Laboratory Results
Troponin I 0.022 ng/ml 10/03/23 11:54
Data Reviewed
-
Medical Tests (Nuc Med, Echo, EKG etc): Image Personally Visualized and interpreted, Discussed with Physician, Discussed with Patient and Discussed with Family
Lab Data: Labs Reviewed by me, Discussed with Physician, Discussed with Patient and Discussed with Family
Impression/Plan
-
Assessment:
Paroxysmal Afib w RVR
h/o atypical atrial flutter and atrial tachycardia (with prior ablations)
Chronic Tikosyn/Eliquis therapy
- continue IV Cardizem drip - requires intensive monitoring
- continue Tikosyn
- continue Eliquis
- CV planned in morning
- check Echo
Non-LA trop elevation from AFib with RVR
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
NSTEMI and PEA arrest 06/14/22
Hx of CAD s/p stents
Chronic HFpEF
Essential HTN
- continue Plavix/Eliquis
- continue Isosorbide mononitrate
Hyperlipidemia - statin
Parkinson's disease - continue sinemet
COPD - continue inhalers/nebs
DVT ppx: Eliquis
Code: Full
[2023-10-03 18:08] LABS: Troponin I 0.116 ng/ml
[2023-10-03] MEDS: LIPITOR 40 MG PO (20:03)
[2023-10-03] MEDS: ELIQUIS 5 MG PO (20:03)
[2023-10-03] MEDS: TIKOSYN 250 MCG PO (21:24)
[2023-10-03] MEDS: ATROVENT NEBULES 0.5 MG INH (21:55)
[2023-10-03] MEDS: PULMICORT 0.5 MG INH (21:55)
--- NOTE | 2023-10-03 21:55 | PTCARENOTE ---
Pt arrived from the ED via stretcher w/ daughter at bedside. Pt ambulated w/ rolling walker to bed. Pt is AAOx3, VSS, w/o complaints of pain or chest discomfort. Cardizem gtt @10mg/hr heart rate in the 60's. Pt is oriented to room resting
comfortably w/ call ballesteros within reach.
[2023-10-03] MEDS: SINEMET 25-100 1 TABLET PO (22:14)
[2023-10-03 23:52] LABS: Troponin I 0.146 ng/ml
[2023-10-04 03:17] VITALS: BP 128/58
[2023-10-04 05:34] LABS: Hematocrit 38.2 % (39.0-52.0); Hemoglobin 13.1 g/dL (13.0-18.0); Mean Corp Hgb Conc. 34.3 g/dL (33.0-37.0); Mean Corpuscular Hgb 30.8 pg (27.0-31.0); Mean Corpuscular Volume 89.9 fL (80.0-94.0); Mean Platelet Volume 8.9 fL (7.4-10.4); Platelet Count 184 10^3/uL (130-400); Red Blood Cell Count 4.25 10^6/uL (4.70-6.10); Red Cell Dist. Width 14.8 % (11.5-14.5); White Blood Cell Count 8.7 10^3/uL (4.8-10.8)
[2023-10-04 06:10] LABS: Blood Urea Nitrogen 20 mg/dl (9-20); Calcium 8.9 mg/dl (8.4-10.2); Carbon Dioxide 25 mmol/L (22-30); Chloride 106 mmol/L (98-107); Estimated Creatinine Clearance 56 ml/min; Glucose 106 mg/dl (70-99); Potassium 3.9 mmol/L (3.5-5.1); Sodium 137 mmol/L (135-145); eGFR > 60.00
[2023-10-04 06:11] LABS: Troponin I 0.122 ng/ml
[2023-10-04] MEDS: SINEMET 25-100 1 TABLET PO ×2 (06:37→12:37)
[2023-10-04 06:38] LABS: TSH Reflex To Free T4 3.74 uIU/ml (0.47-4.68)
[2023-10-04 07:30] VITALS: BP 146/75
[2023-10-04] MEDS: PULMICORT 0.5 MG INH (07:57)
[2023-10-04] MEDS: ATROVENT NEBULES 0.5 MG INH (07:57)
[2023-10-04] MEDS: ELIQUIS 5 MG PO (08:09)
[2023-10-04] MEDS: TIKOSYN 250 MCG PO (08:09)
[2023-10-04] MEDS: IMDUR (EXTENDED RELEASE) 60 MG PO (08:10)
[2023-10-04] MEDS: PLAVIX 75 MG PO (08:10)
--- NOTE | 2023-10-04 09:44 | W.PN.CARDCBS ---
Addendum entered and electronically signed by Sukhi Mckeon MD 10/04/23 15:12:
I saw and examined the patient.
The MULE OPERATOR or PA's note was reviewed and I agree with the note.
Comment: General: Well developed, well nourished in NAD.
Neck: Supple, no JVD, HJR, carotids +2 B/L, no bruits bilaterally.
Heart: Non displaced PMI, RRR, no murmurs, No S3, S4, no rubs.
Lungs: Clear to auscultation bilaterally, no wheeze, rhonchi, rubs bilaterally,
normal expiratory phase.
Extremities: No clubbing, cyanosis or edema bilaterally.
Neuro: Grossly nonfocal, awake, alert and oriented x3.
Remains in sinus rhythm. He spontaneously converted to sinus rhythm. Echocardiogram stable. Stable cardiology status for discharge. Discussed with primary service and at bedside. Follow-up arranged.
Original Note:
Today's Communication / Plan
-
Continue Toprol and Tikosyn
Echo completed
Continue Eliquis
Follow up arranged
Impression / Plan
-
PCP: Dr. Mayfield
Graphics Software Engineer: Dr. Bakns
Impression:
Presented with SOB, palpitations, chest pressure
Paroxysmal Afib w RVR
h/o atypical atrial flutter and atrial tachycardia
s/p PVI 03/28/15
s/p PVI and atrial flutter ablation 02/14/21
Previous Multaq therapy, stopped after 02/14/21 ablation
Chronic Tikosyn therapy since 06/2021
Chronic Eliquis therapy
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
NSTEMI and PEA arrest 06/14/22
CPR and 4-5 rounds of Epi
CAD
Prior history of CADz with LCx and proximal LAD stents, patent by cath 05/14/2022
NSTEMI and IFR positive long diffuse mid LAD 50-60% stenosis s/p SONDRA to LAD 06/06/22
cath 06/14/22 with stable CAD, patent LAD/circ stents
Chronic HFpEF
HTN
Hyperlipidemia
Parkinson's disease
COPD
Echo 05/19/21: EF 70-75%, mild to mod MR, moderate to severe with mild aortic regurgitation with peak/mean 65/29 mmHg and FANY 1.0 cm sq, mild to mod PHTN with PAP 43-48 mmHg
Echo 01/08/22: EF 67%, mod LVH, no regional wall motion abnormalities, septum thicker than posterior wall.� Peak LVOT gradient at rest of 11 mmHg that increases to 38 mmHg with Valsalva. Stage III diastolic dysfunction suggestive of restrictive
filling pattern and increased filling pressures. Normal right ventricular size and function. Moderate eccentric mitral regurgitation.Mild aortic regurgitation and moderate to severe, likely severe aortic stenosis. Peak/mean 77/38 mmHg and FANY�0.98
cm2.
Echo 06/05/22: EF 75%, no WMA, aortic valve peak/mean 63/35 mmHg and FANY 1.0 cm sq, mild aortic regurgitation, mild MR
Echo 08/17/2022: EF 65 to 70%, stage II diastolic dysfunction, severe biatrial dilation, moderate MR, MAC, status post TAVR with mean gradient 6 mmHg trace AI, moderate TR, moderate to severe pulmonary hypertension
Echo 09/17/2022: EF 65 to 70%, moderate LVH, mild to moderate MR, well-seated TAVR with peak/mean gradients 19/8 mmHg, mild TR, estimated PAP 47 mmHg
Echo 10/04/2023: Study completed, report pending
Plan:
-Presented for OP echo and due to chest pressure and SOB, was sent to [facility]. Found to be in rapid AFib on arrival.
-Admitted overnight on cardizem gtt w/ plan for cardioversion this AM, however spontaneously converted to SR and remains in SR.
-Cardizem stopped. Would continue on prior Toprol 50mg daily and Tikosyn 250mcg BID.
-Continue Eliquis 5mg BID for anticoagulation.
-Echo completed this AM. Await final report.
-Troponin up to 0.146, trending down thereafter. Suspect nonischemic myocardial injury in the setting of rapid afib.
-TSH wnl at 2.53.
-BP stable, continue Imdur and Toprol.
-Continue plavix and lipitor with h/o CAD.
-Follow up visit w/ Dr. Banks arranged.
HPI: Juancarlos is an 88 year old male with PMH of TAVR, CAD, PEA arrest, Chronic HFpEF, paroxysmal atrial fibrillation, hypertension, hyperlipidemia, Parkinson's disease, and COPD. Presents to [facility] for evaluation of SOB and chest tightness. He initially
presented to outpatient resist coater developer office for previously scheduled echocardiogram. When he got there, he admitted to feeling chest pressure and SOB and palpitations. He was brought to ER for evaluation where he was found to be in rapid atrial
fibrillation on arrival. He noted that he felt like he was in afib this morning when he woke up. He has had no missed doses of his Tikosyn or his Eliquis. Discussed option of cardioversion in the emergency department, however patient had eaten half
of a hoagie shortly before arriving, so cardioversion was deferred and plan was to admit and observe overnight. He was started on Cardizem gtt and his heart rates are improved. Cardiology consulted for evaluation. With improvement in his heart
rates, his symptoms have improved and he reports he feels excellent at this time. Chest pain, palpitations, and SOB are resolved.
Progress Note - Graphics Software Engineer
Subjective
Date of Service: October 04, 2023
Feeling well. Back in SR and no complaints.
Objective
Labs:
10/04/23 05:20
10/04/23 05:20
Labs
Hgb 13.1 g/dL (13.0-18.0) 10/04/23 05:20
Hct 38.2 % (39.0-52.0) L 10/04/23 05:20
Plt Count 184 10^3/uL (130-400) 10/04/23 05:20
Sodium 137 mmol/L (135-145) 10/04/23 05:20
Potassium 3.9 mmol/L (3.5-5.1) 10/04/23 05:20
BUN 20 mg/dl (9-20) 10/04/23 05:20
Creatinine 0.9 mg/dL (0.7-1.3) 10/04/23 05:20
Glucose 106 mg/dl (70-99) H 10/04/23 05:20
Troponins
10/03/23 10/03/23 10/03/23
11:54 17:16 22:52
Troponin I 0.022 0.116 H* D 0.146 H* D
10/04/23
05:20
Troponin I 0.122 H*
Vital Signs and I&O:
Vital Signs
Temp Pulse Resp BP Pulse Ox
97.6 F 63 16 146/75 98
10/04/23 07:30 10/04/23 08:00 10/04/23 08:00 10/04/23 07:30 10/04/23 08:00
Vital Signs
Temp Pulse Resp BP Pulse Ox
97.6 F 63 16 146/75 98
10/04/23 07:30 10/04/23 08:00 10/04/23 08:00 10/04/23 07:30 10/04/23 08:00
Intake & Output
10/02/23 10/03/23 10/04/23 10/05/23
06:59 06:59 06:59 06:59
Intake Total 480 / 480
Output Total 200 / 200
Balance 280 / 280
Physical Exam
Physical Exam
GEN: No distress, awake, alert, oriented x3
HEENT: supple, anicteric, mmm
LUNGS: CTA b/l, no wheezes/rales
CV: Reg, S1/S2, 1/6 murmur
EXT: No clubbing, cyanosis, or edema
NEURO: Gross non-focal
SKIN: Warm, dry, no rash
[2023-10-04 09:51] VITALS: BP 148/72; BP 151/64; PULSE 57; O2SAT 97
[2023-10-04 11:26] VITALS: BP 128/54
--- NOTE | 2023-10-04 12:19 | PTCARENOTE ---
Patient in Sinus Bradycardia when received. Notified pathology laboratory director; customer assistance associate and hospitalist. EKG done. Patient will not need cardioversion. Will monitor telemetry. Patient denies complaints at this time.
[2023-10-04 12:21] VITALS: BMI 30.7
--- NOTE | 2023-10-04 13:24 | W.PN.HOSP.TC ---
Today's Communication/Plan
-
dc to home today
Assessment / Plan
Assessment / Plan
Assessment:
Paroxysmal Afib w RVR
h/o atypical atrial flutter and atrial tachycardia (with prior ablations)
Chronic Tikosyn/Eliquis therapy
- converted to NSR with IV cardizem. CV plan stopped.
- d/w Cards. will dc home on BB/Tikosyn
- Echo: unchanged from prior
- f/u Cards office in few weeks
Non-IN trop elevation from AFib with RVR
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
NSTEMI and PEA arrest 06/14/22
Hx of CAD s/p stents
Chronic HFpEF
Essential HTN
- continue Plavix/Eliquis
- continue Isosorbide mononitrate
Hyperlipidemia - statin
Parkinson's disease - continue Sinemet
COPD - continue inhalers/nebs
DVT ppx: Eliquis
Code: Full
More than 30 minutes spent in discharge including
Final examination of the patient
Summarizing hospital stay
Instructions for continuing care to all relevant caregivers
Preparation of discharge records, prescriptions, and referral forms
Total time spent (in minutes): 41
Anticipated Discharge: Today
Subjective/Interval History
-
Date of Service: October 04, 2023
converted to NSR
Objective Data
-
Labs:
Laboratory Results
10/04/23
05:20
WBC 8.7
Hgb 13.1
Hct 38.2 L
Plt Count 184
Sodium 137
Potassium 3.9
Chloride 106
Carbon Dioxide 25
BUN 20
Creatinine 0.9
Glucose 106 H
Calcium 8.9
Vital Signs:
Vital Signs
Temp Pulse Resp BP Pulse Ox
98.0 F 62 14 128/54 94
10/04/23 11:26 10/04/23 11:26 10/04/23 11:26 10/04/23 11:26 10/04/23 11:26
I&O
10/03/23 10/04/23 10/05/23
06:59 06:59 06:59
Intake Total 480 / 480
Output Total 200 / 200
Balance 280 / 280
Physical Exam
-
General: No Apparent Distress
HEENT: Normocephalic and Atraumatic
Respiratory: Negative Wheezes or Rales
Cardiac: Regular Rhythm and S1/S2
GI: Soft and Nontender
Neuro: AO x 3
Hematologic / Lymphatic: No Lymphadenopathy
Psych: Calm
Data Reviewed
-
Total Time Spent with Patient (in minutes): 41
Labs: Labs Reviewed by me
[2023-10-04 13:30] VITALS: BP 122/62
--- NOTE | 2023-10-04 13:34 | W.DS.TRANS ---
DC Summary - Freight Representative
-
Discharge Instructions:
Sleep Apnea Risk High
Discharge Diagnosis/Procedures Rapid Afib
Diet Low Cholesterol
Activity As tolerated
Bathing Restrictions None
Instructions:
Stand-Alone Forms:
Changes to Home Medications: No
Discharge Medications:
DC Medications w/original date entered in [employer]
atorvastatin 40 mg tablet 40 mg PO QPM High cholesterol 02/10/21
ipratropium bromide 0.02 % solution for inhalation 0.5 mg inhalation R BID Lung/breathing issues 02/10/21
clopidogrel 75 mg tablet 75 mg PO DAILY heart disease/condition #30 tabs 01/24/22
apixaban 5 mg tablet (Eliquis) 5 mg PO BID Blood clot prevention/tx #0 tabs 01/30/22
dofetilide 250 mcg capsule (Tikosyn) 250 mcg PO Q12H arrhythmia #60 caps 01/30/22
carbidopa 25 mg-levodopa 100 mg tablet 1 tab PO TID@07,12,17 Neurological Condition 06/14/22
isosorbide mononitrate 30 mg tablet,extended release 24 hr 60 mg PO DAILY Heart disease/condition 06/14/22
metoprolol succinate 50 mg tablet,extended release 24 hr 50 mg PO DAILY Heart disease/condition 30 days #30 tabs 06/20/22
ascorbic acid (vitamin C) 500 mg tablet (Vitamin C) 500 mg PO DAILY Supplement 07/21/23
budesonide 0.5 mg/2 mL suspension for nebulization 0.5 mg inhalation R BID Lung/Breathing Issues 10/03/23
cholecalciferol (vitamin D3) 25 mcg (1,000 unit) tablet (Vitamin D3) 25 mcg PO DAILY Supplement 10/03/23
Home Medication Changes
Pending Results: No
Total time spent discharging patient (in min): 42
[2023-10-04 14:18] VITALS: BMI 30.7
--- NOTE | 2023-10-04 14:20 | PTCARENOTE ---
Reviewed discharge instructions with patient and . Aware of follow up appointment with cardiology. Copy of discharge instructions provided. Both verbalize understanding of teaching. Deny questions at this time. Peripheral IV removed. Tele
removed. Awaiting son for transport.
--- NOTE | 2023-10-04 14:23 | CM ---
met with patient and his at bedside Patient lives with his in house at [address]he amb with a cane and rw,is I with his adl's.his pcp is dr lex pak and he uses [facility] [place] for his pharmcy.pt is adm in afib but
converted to sinus rhythm.he was seen by therapy and has no needs.pt dc home with no needs.patient signed imm letter. or sn to transport home.
== END 2023-10-04 15:37 | disposition home or self-care (01) | DRG 309 ==
LOC: 4 EAST ACU 17:39
PROVIDERS: Physician Assistant; Physician Assistant Medical; Registered Nurse; ADMITTING PHYSICIAN Internal Medicine; CONSULT PHYSICIAN Internal Medicine Interventional Cardiology; EMERGENCY PHYSICIAN Emergency Medicine; FAMILY PHYSICIAN Internal Medicine
DX: I48.0 Paroxysmal atrial fibrillation (principal); I50.32 Chronic diastolic (congestive) heart failure; E78.00 Pure hypercholesterolemia, unspecified; I11.0 Hypertensive heart disease with heart failure; G20.A1 Parkinson's disease without dyskinesia, without mention of fluctuations; J44.9 Chronic obstructive pulmonary disease, unspecified; I25.10 Atherosclerotic heart disease of native coronary artery without angina pectoris; Z85.118 Personal history of other malignant neoplasm of bronchus and lung; Z95.5 Presence of coronary angioplasty implant and graft; Z79.01 Long term (current) use of anticoagulants; Z79.02 Long term (current) use of antithrombotics/antiplatelets; Z79.51 Long term (current) use of inhaled steroids; Z95.3 Presence of xenogenic heart valve; Z87.891 Personal history of nicotine dependence; I25.2 Old myocardial infarction; Z88.8 Allergy status to other drugs, medicaments and biological substances; Z86.74 Personal history of sudden cardiac arrest
CPT/HCPCS: 80048; 83735; 84443; 84484; 85025; 85027; 93005; 93306; 94640; 96374; 96376; 97161; 99285

== ENCOUNTER 2024-06-05 06:41 | Day surgery (SDC) | payer MEDICARE, BC, SELFPAY | END 2024-06-05 07:10 | disposition home or self-care (01) | LOC: CATH 06:41 | PROVIDERS: ATTENDING PHYSICIAN Internal Medicine Cardiovascular Disease; FAMILY PHYSICIAN Internal Medicine; OTHER PHYSICIAN Nuclear Medicine Nuclear Cardiology | DX: I48.0 Paroxysmal atrial fibrillation (principal); Z53.09 Procedure and treatment not carried out because of other contraindication; I11.0 Hypertensive heart disease with heart failure; I50.32 Chronic diastolic (congestive) heart failure; I25.10 Atherosclerotic heart disease of native coronary artery without angina pectoris; E78.5 Hyperlipidemia, unspecified; J44.9 Chronic obstructive pulmonary disease, unspecified; Z95.2 Presence of prosthetic heart valve; Z79.01 Long term (current) use of anticoagulants; Z79.02 Long term (current) use of antithrombotics/antiplatelets | CPT/HCPCS: 93005 ==

== ENCOUNTER 2024-08-05 14:11 | Inpatient (IN) | payer MEDICARE, BC, SELFPAY ==
[2024-08-05] VITALS (12 sets, daily range): BP systolic 137–180; BP diastolic 60–108; BMI 32.9
--- NOTE | 2024-08-05 09:24 | ED.GENMED ---
History of Present Illness
General
Chief Complaint: Fall
Source: patient
Exam Limitations: none
Time Seen by Provider: 08/05/24 09:24
Nursing documentation reviewed up to this point in time: agreed with
History of Present Illness
History of Present Illness:
This is a 89-year-old male with a past medical history of dementia, Parkinson's, A-fib on Eliquis, COPD presents emergency department today with concerns of an unwitnessed fall. Patient currently has no complaints at this time. He states that he
is not entirely sure what happened but recalls sliding off of the toilet this morning and being unable to get up. He was not sure how long he was on the ground for. I spoke to his who reports that she is unsure the exact time how long he was
on the floor as patient was lying on the bathroom floor when his woke up. Patient denies headache, loss of consciousness, neck pain. Patient states that he has no pain in his wrist or lower extremities. He has no back pain. He has no
paresthesias in his upper extremities. He states that since the fall and since EMS got him, he has not tried walking. He does have some bruising to his wrist bilaterally which patient states is chronic from recurrent blood work draws.
Past History
Past History
ED Past Medical History: Arrthythmia (a fib with ablation 02/2021), CAD, Cancer (lung), HTN, Hypercholesterolemia and Valvular disease; Negative DC
ED Past Surgical History: Cardiac (stent), Cholecystectomy, Orthopedic and Other (lung resection for CA, cleared as of 05/29/21 no radiation or chemo.)
Social History
Tobacco: Former smoker
Alcohol: Occasional
Drug: None
Personal:
Living: with family
Employment: Retired
Family History
Family History: Other
Review of Systems
Review of Systems
All Other Systems: ROS reviewed and negative except as documented in HPI and ROS
Phy Exam
Physical Exam
Physical Exam:
General: Patient is well appearing and in no acute distress; non-toxic
Skin: Warm and dry, no rashes or lesions
Head: Normocephalic, atraumatic
Eyes: Sclera non-icteric. EOMs intact. PERRLA.
Neck: No midline cervical spine tenderness
Cardiac: Regular rate and rhythm, no murmurs
Peripheral Vascular: No lower extremity swelling or edema
Pulm: Normal respiratory effort, no wheezes, rales, rhonchi
Neuro: CN II-XII intact, no focal neurologic deficits.
Psychiatric: Appropriate mood and affect.
Course
Orders/Labs/Results
Orders:
Orders
08/05/24 09:38
CT Head W/o Iv Contrast Urgent
Comment:
Reason For Exam: unwitnessed fall on eliquis
08/05/24 09:45
CT Cervical Spine W/o Iv Contr Urgent
Comment:
Reason For Exam: unwitnessed fall, head strike
08/05/24 09:55
Complete Blood Count/With Diff Urgent
08/05/24 10:29
Basic Metabolic Panel Urgent
Creatine Phosphokinase Urgent
08/05/24 11:01
Urinalysis Reflex To Culture Urgent
Date Specimen was Collected: 08/05/24
Time Specimen was Collected: 10:59
Urine Microscopic Reflex Cult Urgent
08/05/24 11:04
Electrocardiogram (*1) Urgent
Reason for Study: Syncope
EKG- Treatment ONCE
CR Chest - 2 Views Urgent
Comment:
Reason For Exam: cough, sob
08/05/24 11:09
0.9% Sodium Chloride 1000 ml [Nss] 1,000 ml IV BOLUS
08/05/24 11:56
Ipratropium/Albuterol Sulfate [Duoneb] 3 ml INH R NOW STA
08/05/24 13:47
Admit/Transfer Patient As Directed
Co-Sign Provider:
Level of Care: Inpatient admission
Assign to:: Telemetry
Physician / Group: darwin
Diagnosis: syncope
Reason for Telemetry: Arrhythmia
Date to Stop Telemetry: 08/08/24
Time to Stop Telemetry: 11:00
Reason for Hospitalization: syncope, fall
Expected length of stay greater than two midnights?: Yes
ELOS- Estimated Length of Stay in days: 2
I certify the patient meets the requirements for IP care: Yes
PRN Pain Medication Management As Directed
May give lesser potent ordered pain med per pt: Yes
preference::
Protocol:: Medication orders for pain may be administered in a
manner that supports deferring to patient preference
when the pt is:
- Requesting an ordered lesser potent pain medication.
Least to most potent pain medications are defined
as: acetaminophen < NSAID < tramadol < opioids
(morphine, oxycodone, hydromorphone).
- Requesting a lesser dose of the same medication IF
ORDERED.
- Requesting a less intrusive route of administration
if both routes are prescribed by the provider (PO <
IV).
08/05/24 13:48
Code Status As Directed
Resuscitation Status: Full Code
08/05/24 13:54
COVID-19 Antigen Urgent
Source: Nasal Swab
Influenza A+B Rapid Molecular Urgent
TISHA Source: Nasal Swab
Specimen Description:
08/05/24 Dinner
Cholesterol Lowering
At Your Request: Full Participation
Cholesterol Lowering: Sodium, 2 Gram
08/08/24 11:00
DC Protocol for Telemetry ONCE
Abnormal Lab Results
08/05/24 08/05/24 08/05/24
09:55 10:29 11:01
RBC 4.52 L 10^6/uL
(4.70-6.10)
RDW 15.5 H %
(11.5-14.5)
Absolute Lymphs (auto) 0.6 L 10^3/uL
(1.2-3.4)
Absolute Monos (auto) 0.8 H 10^3/uL
(0.1-0.6)
Neutrophils % 81.5 H %
(42.2-75.2)
Lymphocytes % 7.2 L %
(20.5-51.1)
Monocytes % 10.4 H %
(1.7-9.3)
BUN 24 H mg/dl
(9-20)
Glucose 108 H mg/dl
(70-99)
Creatine Kinase 885 H U/L
(55-170)
Ur Occult Blood Reflex 4+ A
(Negative)
Urine Bacteria (Reflex) Few A
(Negative)
Urine Albumin (Reflex) 2+ A
(Neg - Trace)
08/05/24 09:55
08/05/24 10:29
Vital Signs
Initial and Last Documented VS:
Initial Vital Signs
Temp Pulse Resp BP Pulse Ox
98.5 F 69 18 163/69 95
08/05/24 08:09 08/05/24 08:09 08/05/24 08:09 08/05/24 08:09 08/05/24 08:09
Last Documented Vital Signs
Temp Pulse Resp BP Pulse Ox
98.5 F 80 16 163/75 95
08/05/24 08:09 08/05/24 18:00 08/05/24 18:07 08/05/24 18:00 08/05/24 18:00
MDM/Problems Addressed
Differential Diagnosis Includes:
Cardiogenic syncope, rhabdomyolysis, vasovagal syncope, mechanical fall, subdural hematoma, epidural hematoma, pneumonia
MDM/Problems Addressed:
89-year-old male with past medical history of lung cancer, A-fib on Eliquis, CHF, coronary artery disease, presents emergency department today with concerns of an unwitnessed fall. His woke up this morning and found him on the ground. There
is a documented history of dementia although daughter declines any history of dementia. Daughter reports that patient is usually very alert and sharp and reports that she feels as though today he seems a bit confused. Daughter is concerned that he
may have syncopized at home considering patient does not recall the events of the fall. CT of the neck negative for any fractures CT of the head negative for any bleeding. Urinalysis does not show any concerning signs of infection. Chest x-ray
negative for pneumonia. EKG shows sinus rhythm with ST abnormality laterally however no reciprocal changes unchanged compared to previous EKG. In light of change in mentation per daughter, and possible syncopal episode, will admit overnight for
observation telemetry monitoring. Patient referred for admission.
Chronic conditions affecting care:
copd, afib, parksions
*Pulse Oximetry
Patient hypoxic: no
*EKG
Interpreted by ED Provider?: Yes
EKG Intrepretation Date: 08/05/24
Interpretation: normal
Comparison EKG: changes noted
Heart Rate: 72
Rate: normal
Rhythm: sinus
[place]: normal axis
Interval: normal interval
*Middle School Librarian Interpretation
Rate: normal
Interpretation: normal
Heart Rate: 70
Rhythm: sinus
*Critical Care Note
Total Time (30-74mins, 75-104mins- exclusive of procedures): Not Applicable
Data Reviewed
Review of Other/Old Records Reveals: Records (Reviewed discharge summary from 09/14/2023 patient seen for A-fib)
Source: patient and records
Update Note
Update Note:
11:00 am--Daughter arrives to ER and reports that pt does not currently have dementia. Daughter is concerned about potential syncopal episode as patient does not recall the event at all and this is unlike him per daughter, daughter reports that
patient is usually very alert and has good memory.
ED Attending Note
-
Portions of this chart may have been created with voice recognition software.� Occasional wrong word or��sound alike� substitutions may have occurred due to the inherent limitations of voice recognition software.
Discharge Plan
Departure
Patient Disposition: Admit
Date of Disposition: 08/05/24
Time of Disposition: 12:49
Admit to: Telemetry
Presentation/result/management discussed w/ accepting MD/DO: Hospitalist
Patient with high blood pressure during this ER visit?: Yes
Condition: Fair
Discharge Problem:
Unwitnessed fall
Interventions
Interventions:
*Risk Screen - Suicide Last Done: 08/05/24 08:09
*General Assessment Last Done: 08/05/24 08:09
*Neglect/Abuse Screening Last Done: 08/05/24 08:09
*ED COVID-19 Vaccine History Last Done: 08/05/24 10:55
ED- Cardiac Assessment Last Done: 08/05/24 09:53
ED-Musculoskeletal Assessment Last Done: 08/05/24 09:53
ED- Neurological Assessment Last Done: 08/05/24 09:53
ED- Pulmonary Assessment Last Done: 08/05/24 09:53
ED-Skin Assessment Last Done: 08/05/24 09:53
[2024-08-05 10:05] LABS: % Basophils 0.4 % (0-2); % Eosinophils 0.1 % (0-6); % Immature Granulocytes 0.4 % (0-0.5); % Lymphocytes 7.2 % (20.5-51.1); % Monocytes 10.4 % (1.7-9.3); % Neutrophils 81.5 % (42.2-75.2); Absolute Lymphocytes 0.6 10^3/uL (1.2-3.4); Absolute Monocytes 0.8 10^3/uL (0.1-0.6); Absolute Neutrophils 6.3 10^3/uL (1.4-6.5); Hematocrit 40.9 % (39.0-52.0); Hemoglobin 13.8 g/dL (13.0-18.0); Mean Corp Hgb Conc. 33.7 g/dL (33.0-37.0); Mean Corpuscular Hgb 30.5 pg (27.0-31.0); Mean Corpuscular Volume 90.5 fL (80.0-94.0); Mean Platelet Volume 9.3 fL (7.4-10.4); Nucleated Red Blood Cells % 0 % (-); Platelet Count 169 10^3/uL (130-400); Red Blood Cell Count 4.52 10^6/uL (4.70-6.10); Red Cell Dist. Width 15.5 % (11.5-14.5); White Blood Cell Count 7.8 10^3/uL (4.8-10.8)
[2024-08-05 11:04] LABS: Blood Urea Nitrogen 24 mg/dl (9-20); Carbon Dioxide 25 mmol/L (22-30); Chloride 105 mmol/L (98-107); Creatine Phosphokinase 885 U/L (55-170); Glucose 108 mg/dl (70-99); Sodium 139 mmol/L (135-145); eGFR > 60.00
[2024-08-05 11:13] LABS: Urine Albumin 2+ (Neg - Trace); Urine Bilirubin Negative (Negative); Urine Character Clear (Clear); Urine Color Yellow; Urine Glucose Negative (Negative); Urine Ketone Negative (Negative); Urine Leukocyte Negative (Negative); Urine Nitrite Negative (Negative); Urine Occult Blood 4+ (Negative); Urine Specific Gravity 1.025 (<1.030); Urine Urobilinogen Negative (Neg - 1+)
[2024-08-05] MEDS: NSS 1000 IV ×2 (11:13→21:53)
[2024-08-05] MEDS: DUONEB 3 ML INH ×2 (12:00→21:46)
[2024-08-05 13:02] LABS: Urine Hyaline Cast 0-2 /LPF (0-2); Urine Mucus Few
[2024-08-05 13:03] LABS: Urine Bacteria Few (Negative); Urine Squamous Cell 0-2 /LPF (Few); Urine White Cell 0-2 /HPF (0-5)
[2024-08-05 13:04] LABS: Urine Red Blood Cell 0-2 /HPF (0-2)
--- NOTE | 2024-08-05 13:51 | HPS.HSE ---
Family Physician
-
Family Physician: Reza Mayfield
Chief Complaint
-
possible syncope
History of Present Illness
89-year-old male past medical history of paroxysmal atrial fibrillation on Eliquis, aortic stenosis status post TAVR, NSTEMI, CAD status post stents, PEA arrest, HFpEF, right lung cancer status post resection, hypertension, hyperlipidemia, Parkinson
disease, pituitary mass, presenting with unwitnessed fall. He denies any complaints at this time. He is not entirely sure what happened but recalls sliding of the toilet this morning unable to get up. He was found in the bathroom on the ground by
his .
He was not sure how long he was on the ground. is unsure about how long he has been on the ground. He denies any headache, loss of consciousness or neck pain. Denies back pain. Denies numbness or tingling in the upper extremities. He has
not tried walking since the fall. He has bruising of his bilateral wrists which is chronic from recurrent blood work draws. He has some abrasions on his right lower leg.
Daughter notes that he is also currently confused and does not have a history of dementia.
He has chronic congestion and cough which was attributed to his history of lung cancer status post right lung resection. No history of smoking or COPD. He was started on azithromycin 2 days ago by his primary care physician.
He is scheduled for ablation for A-fib next week.
Medical History
Past Medical History
Past Medical History: Reports Other ( paroxysmal atrial fibrillation on Eliquis, aortic stenosis status post TAVR, NSTEMI, CAD status post stents, PEA arrest, HFpEF, right lung cancer status post resection, hypertension, hyperlipidemia, Parkinson
disease, pituitary mass)
Past Surgical History: Reports None
Social History
Tobacco: Non-smoker
Alcohol: None
Drug: None
Family History
Family History: Not pertinent
Allergies / Home Medications
Allergies reflects when Allergies were last updated in [facility].
Home Medications with original date entered in [facility]
Allergy/Medication List:
Allergies
Allergy/AdvReac Type Severity Reaction Status Date / Time
lisinopril Allergy Unknown Verified 08/05/24 08:05
Home Medications
atorvastatin 40 mg tablet 40 mg PO HS High cholesterol 02/10/21
clopidogrel 75 mg tablet 75 mg PO DAILY heart disease/condition #30 tabs 01/24/22
apixaban 5 mg tablet (Eliquis) 5 mg PO BID Blood clot prevention/tx #0 tabs 01/30/22
dofetilide 250 mcg capsule (Tikosyn) 250 mcg PO Q12H arrhythmia #60 caps 01/30/22
carbidopa 25 mg-levodopa 100 mg tablet 1 tab PO TID Neurological Condition 06/14/22
ipratropium bromide 17 mcg/actuation HFA aerosol inhaler 1 puff inhalation DAILY 07/27/24
isosorbide mononitrate 60 mg tablet,extended release 24 hr 60 mg PO DAILY 07/27/24
metoprolol succinate 50 mg tablet,extended release 24 hr 75 mg PO DAILY 07/27/24
budesonide 0.5 mg/2 mL suspension for nebulization 0.5 mg inhalation R BID 08/05/24
Review of Systems
-
History Source: Patient
A 12 point ROS was completed and negative except as noted: Yes
Constitutional: Reports No Symptoms
EENT: Reports No Symptoms
Respiratory: Reports No Symptoms
Cardiac: Reports No Symptoms
Abdomen/GI: Reports No Symptoms
: Reports No Symptoms
Musculoskeletal: Reports No Symptoms
Skin: Reports No Symptoms
Neurological: Reports No Symptoms
Endocrine: Reports No Symptoms
Hematologic/Lymphatic: Reports No Symptoms
Psych: Reports No Symptoms
Physical Exam
Vital Signs
Vital Signs
Temp Pulse Resp BP Pulse Ox
98.5 F 76 27 163/68 95
08/05/24 08:09 08/05/24 13:00 08/05/24 13:00 08/05/24 13:00 08/05/24 12:06
Physical Exam
General: Well Developed, Well Nourished and No Apparent Distress
HEENT: NormoCephalic, Moist mucous membranes and Atraumatic
Respiratory: Wheezes
Cardiac: S1/S2 and Regular Rhythm; No Murmur or Rub
GI: Soft, Non Tender, Non Distended and Normal Bowel Sounds; No Organomegaly
Rectal: Deferred by Provider
Musculoskeletal: No Clubbing, No Cyanosis and No Edema
Skin: No Rash
Neuro: Nonfocal/grossly intact
Laboratory Results
-
08/05/24 09:55
08/05/24 10:29
Laboratory Results
Total Bilirubin Cancelled 08/05/24 10:29
AST Cancelled 08/05/24 10:29
ALT Cancelled 08/05/24 10:29
Alkaline Phosphatase Cancelled 08/05/24 10:29
Data Reviewed
-
Lab Data: Labs Reviewed by me
Old Records: Reviewed
Impression/Plan
-
IMPRESSION:
PLAN:
# Unwitnessed fall/possible syncopal episode possibly cardiac given history of PEA arrest versus secondary to acute bronchitis
-CT cervical spine shows no fracture, CT head negative
-EKG shows sinus rhythm with premature supraventricular complex
-Telemetry monitoring
-Check orthostatic vital signs
-Gentle IV fluids
-Having some minor bleeding from abrasions, hold Eliquis for today
# Acute bronchitis
# History of lung cancer status post right lung resection
-Chest x-ray shows cardiomegaly, no overt pulmonary edema
-Today is day 3 of azithromycin
-Hold further azithromycin
-DuoNebs every 6
-Start dexamethasone 4 mg daily
-Check COVID and influenza
# Metabolic encephalopathy possibly from acute bronchitis
-No history of dementia as per daughter
-Urinalysis negative
# Mild rhabdomyolysis
-CPK of 885
-IV fluids
Paroxysmal atrial fibrillation
-Continue Tikosyn
-Hold Eliquis for today
-Scheduled for ablation next week
Aortic stenosis status post TAVR
CAD with stents/history of NSTEMI
-Continue Plavix
-Continue isosorbide mononitrate
-Continue metoprolol
History of PEA arrest
Chronic HFpEF
Essential hypertension
Hyperlipidemia
Parkinson's disease
-Continue carbidopa-levodopa
COPD
-Continue budesonide, ipratropium
Full code
DVT prophylaxis�Eliquis
Cardiac diet
[2024-08-05 14:34] LABS: COVID-19 Antigen Negative (Negative)
[2024-08-05] MEDS: SINEMET 25-100 1 TABLET PO (21:43)
[2024-08-05] MEDS: DECADRON 4 MG IV (21:43)
[2024-08-05] MEDS: LIPITOR 40 MG PO (21:45)
[2024-08-05] MEDS: TIKOSYN 250 MCG PO (21:45)
[2024-08-05] MEDS: PULMICORT 0.5 MG INH (21:46)
[2024-08-05] MEDS: TYLENOL 650 MG PO (22:32)
[2024-08-06] VITALS (7 sets, daily range): BP systolic 134–165; BP diastolic 64–97; PULSE 83; O2SAT 96
[2024-08-06] MEDS: SINEMET 25-100 PO (00:06)
[2024-08-06] MEDS: PULMICORT 0.5 MG INH ×2 (07:25→19:24)
[2024-08-06] MEDS: DUONEB 3 ML INH ×4 (07:25→19:24)
[2024-08-06 07:30] LABS: % Basophils 0.1 % (0-2); % Immature Granulocytes 0.5 % (0-0.5); % Lymphocytes 5.4 % (20.5-51.1); % Monocytes 5.3 % (1.7-9.3); % Neutrophils 88.7 % (42.2-75.2); Absolute Lymphocytes 0.5 10^3/uL (1.2-3.4); Absolute Monocytes 0.5 10^3/uL (0.1-0.6); Absolute Neutrophils 7.6 10^3/uL (1.4-6.5); Mean Corp Hgb Conc. 32.5 g/dL (33.0-37.0); Mean Corpuscular Hgb 30.5 pg (27.0-31.0); Mean Corpuscular Volume 93.9 fL (80.0-94.0); Mean Platelet Volume 9.1 fL (7.4-10.4); Nucleated Red Blood Cells % 0 % (-); Platelet Count 168 10^3/uL (130-400); Red Blood Cell Count 4.26 10^6/uL (4.70-6.10); Red Cell Dist. Width 15.8 % (11.5-14.5); White Blood Cell Count 8.5 10^3/uL (4.8-10.8)
[2024-08-06 08:02] LABS: Glucose - Point of Care 133 mg/dl (70-99)
[2024-08-06 08:47] LABS: ALT (SGPT) 14 U/L (0-50); AST (SGOT) 52 U/L (17-59); Albumin 3.5 g/dl (3.5-5.0); Alkaline Phosphatase 77 U/L (38-126); Blood Urea Nitrogen 18 mg/dl (9-20); Calcium 8.2 mg/dl (8.4-10.2); Carbon Dioxide 22 mmol/L (22-30); Chloride 106 mmol/L (98-107); Estimated Creatinine Clearance 70 ml/min; Glucose 140 mg/dl (70-99); Potassium 4.3 mmol/L (3.5-5.1); Sodium 138 mmol/L (135-145); Total Bilirubin 2.2 mg/dl (0.2-1.3); Total Protein 6.1 g/dl (6.3-8.2); eGFR > 60.00
[2024-08-06] MEDS: PLAVIX 75 MG PO (08:55)
[2024-08-06] MEDS: TOPROL XL 75 MG PO (08:55)
[2024-08-06] MEDS: SINEMET 25-100 1 TABLET PO ×3 (08:55→20:25)
[2024-08-06] MEDS: IMDUR (EXTENDED RELEASE) 60 MG PO (08:55)
[2024-08-06] MEDS: TIKOSYN 250 MCG PO ×2 (09:25→20:24)
[2024-08-06 09:28] LABS: Creatine Phosphokinase 621 U/L (55-170)
--- NOTE | 2024-08-06 10:47 | CM ---
Addendum entered by Christine Ramsey 08/06/24 14:16:
Referral placed in [facility] for [place] [facility].
Original Note:
Patient seen bedside. +Flu
IA completed.
Patient lives with spouse in a 1 story home with no step to enter.
patient independent prior to admission, uses a cane and RW occasionally.
Patient drives.
Patient had [facility] in the past and would like them again if needed.
PT/OT recommendations (P).
PCP: Tran
Pharmacy:[facility]
Plan: home with possible VN
[2024-08-06 12:27] LABS: Glucose - Point of Care 122 mg/dl (70-99)
[2024-08-06] MEDS: LR 1000 IV (12:58)
[2024-08-06] MEDS: TAMIFLU 75 MG PO ×2 (12:59→20:24)
--- NOTE | 2024-08-06 14:34 | W.PN.HOSP.TC ---
Today's Communication/Plan
-
echo
fluids
tamiflu
resume eliquis
pt/ot
Assessment / Plan
Assessment / Plan
Physical Exam
General: Well Developed, Well Nourished and No Apparent Distress
HEENT: NormoCephalic, Moist mucous membranes and Atraumatic
Respiratory: Wheezes
Cardiac: S1/S2 and Regular Rhythm; No Murmur or Rub
GI: Soft, Non Tender, Non Distended and Normal Bowel Sounds; No Organomegaly
Rectal: Deferred by Provider
Musculoskeletal: No Clubbing, No Cyanosis and No Edema
Skin: No Rash
Neuro: Nonfocal/grossly intact
PLAN:
# Unwitnessed fall
-probable vasovagal in setting of FLu
-ortho static vitals
-monitor on tele
-has ablation scheduled outpt
-f/u echo
#Influenza A
# Acute bronchitis
# History of lung cancer status post right lung resection
-Chest x-ray shows cardiomegaly, no overt pulmonary edema
-start tamiflu
-stop steroids, no evidence of bronchospasms
# Metabolic encephalopathy possibly from Flu
-No history of dementia as per daughter
-Urinalysis negative
-appears improved
# Mild rhabdomyolysis
-CPK of 885
-IV fluids, gentle
Paroxysmal atrial fibrillation
-Continue Tikosyn
-Resume Eliquis for today
-Scheduled for ablation next week - informed Dr. Banks regarding possible appt change
Aortic stenosis status post TAVR
CAD with stents/history of NSTEMI
-Continue Plavix
-Continue isosorbide mononitrate
-Continue metoprolol
History of PEA arrest
Chronic HFpEF
Essential hypertension
Hyperlipidemia
Parkinson's disease
-Continue carbidopa-levodopa
COPD
-Continue budesonide, ipratropium
Full code
DVT prophylaxis�Eliquis
Cardiac diet
Anticipated Discharge: Within 24 hours
Subjective/Interval History
-
Date of Service: August 06, 2024
no acute events
Objective Data
-
Labs:
Laboratory Results
08/06/24
07:05
WBC 8.5
Hgb 13.0
Hct 40.0
Plt Count 168
Sodium 138
Potassium 4.3
Chloride 106
Carbon Dioxide 22
BUN 18
Creatinine 0.7
Glucose 140 H
Calcium 8.2 L
Total Bilirubin 2.2 H
AST 52
ALT 14
Alkaline Phosphatase 77
Vital Signs:
Vital Signs
Temp Pulse Resp BP Pulse Ox
98.5 F 72 18 155/64 98
08/06/24 11:58 08/06/24 11:58 08/06/24 11:58 08/06/24 11:58 08/06/24 11:58
I&O
08/05/24 08/06/24 08/07/24
06:59 06:59 06:59
Intake Total 0 / 0
Output Total 200 / 200 300 / 300
Balance -200 / -200 -300 / -300
Review of Systems
-
History Source: Patient
All other systems: Not reviewed unless documented
Data Reviewed
-
Diagnostic Radiology: Report Reviewed by me
Labs: Labs Reviewed by me
[2024-08-06] MEDS: DUONEB INH (15:25)
[2024-08-06 16:40] LABS: Glucose - Point of Care 135 mg/dl (70-99)
[2024-08-06] MEDS: ELIQUIS 5 MG PO (20:24)
[2024-08-06] MEDS: LIPITOR 40 MG PO (20:24)
[2024-08-07 03:59] VITALS: BP 161/71
[2024-08-07 07:45] VITALS: BP 152/68
[2024-08-07] MEDS: PULMICORT 0.5 MG INH (08:06)
[2024-08-07] MEDS: DUONEB 3 ML INH ×3 (08:06→15:48)
[2024-08-07 08:07] LABS: Hematocrit 36.2 % (39.0-52.0); Hemoglobin 12.3 g/dL (13.0-18.0); Mean Corpuscular Hgb 30.6 pg (27.0-31.0); Mean Platelet Volume 9.1 fL (7.4-10.4); Platelet Count 165 10^3/uL (130-400); Red Blood Cell Count 4.02 10^6/uL (4.70-6.10); Red Cell Dist. Width 15.9 % (11.5-14.5); White Blood Cell Count 9.5 10^3/uL (4.8-10.8)
--- NOTE | 2024-08-07 08:19 | PN.CDI ---
CDI
- -
CDI:
Physician Documentation Request
Admit Date: 08/05/24 14:11
Dear Doctor Janis,
Patient admitted for unwitnessed fall.
ED Physician Documentation: 'recalls sliding off of the toilet this morning and being unable to get up. He was not sure how long he was on the ground for.'
08/06 Hospitalist PN: 'Mild rhabdomyolysis -CPK of 885'
Based on the above, could you clarify in the progress notes, the appropriate diagnosis, if significant, that supports the above abnormalities and additional evaluation, monitoring and/or treatment rendered:
Traumatic rhabdomyolysis
Nontraumatic rhabdomyolysis
Other
Use of terms such as suspected, likely, concern for, or probable (associated with a specific diagnosis that is being evaluated, monitored, or treated as if it exists) are acceptable and can be coded in the inpatient setting, when documented at the
time of discharge.
Thank you,
Katiuska Dave RN, BSN
CDI Specialist
Available via [employer] text
Please use your independent medical judgment in providing your response.
[2024-08-07 08:41] LABS: ALT (SGPT) 20 U/L (0-50); AST (SGOT) 51 U/L (17-59); Albumin 3.4 g/dl (3.5-5.0); Alkaline Phosphatase 69 U/L (38-126); Blood Urea Nitrogen 21 mg/dl (9-20); Calcium 8.4 mg/dl (8.4-10.2); Carbon Dioxide 27 mmol/L (22-30); Chloride 103 mmol/L (98-107); Estimated Creatinine Clearance 70 ml/min; Glucose 84 mg/dl (70-99); Potassium 3.8 mmol/L (3.5-5.1); Sodium 137 mmol/L (135-145); Total Bilirubin 2.5 mg/dl (0.2-1.3); Total Protein 5.8 g/dl (6.3-8.2); eGFR > 60.00
[2024-08-07] MEDS: TOPROL XL 75 MG PO (08:41)
[2024-08-07] MEDS: ELIQUIS 5 MG PO (08:41)
[2024-08-07] MEDS: SINEMET 25-100 1 TABLET PO ×2 (08:41→14:55)
[2024-08-07] MEDS: IMDUR (EXTENDED RELEASE) 60 MG PO (08:41)
[2024-08-07] MEDS: PLAVIX 75 MG PO (08:41)
[2024-08-07] MEDS: TAMIFLU 75 MG PO (08:41)
[2024-08-07 08:52] LABS: Creatine Phosphokinase 417 U/L (55-170)
[2024-08-07] MEDS: LR 1000 IV (09:06)
[2024-08-07] MEDS: TIKOSYN 250 MCG PO (09:36)
--- NOTE | 2024-08-07 11:16 | CM ---
Patient seen bedside.
Per patient for d/c home today.
IMM reviewed.
Patient accepted by [facility].
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
Plan: Home with [place] [facility]
fax# [phone]
[2024-08-07 11:42] VITALS: BP 141/63
[2024-08-07 11:44] VITALS: BP 129/66; BP 141/63; BP 146/69; PULSE 76; PULSE 77; PULSE 89
--- NOTE | 2024-08-07 12:11 | PTCARENOTE ---
Addendum entered by Gabriela Aldana RN 08/07/24 12:34:
Reviewed discharge instructions with patient. Patient verbalizes understanding of teaching and denies questions at this time. Awaiting family member to arrive with clothes and to transport.
Original Note:
IV and tele removed. As per MD patient will be discharged to home today. Patient aware and has a family member to pickling drum operator once paperwork is completed.
--- NOTE | 2024-08-07 12:16 | W.PN.HOSP.TC ---
Addendum entered and electronically signed by Rayray Bruce MD 08/10/24 14:21:
Traumatic rhabdomyolysis
Addendum entered and electronically signed by Rayray Bruce MD 08/09/24 16:20:
[id number]
Original Note:
Today's Communication/Plan
-
Tamiflu
f/u PCP and cardiology outpt
Assessment / Plan
Assessment / Plan
Physical Exam
General: Well Developed, Well Nourished and No Apparent Distress
HEENT: NormoCephalic, Moist mucous membranes and Atraumatic
Respiratory: Wheezes
Cardiac: S1/S2 and Regular Rhythm; No Murmur or Rub
GI: Soft, Non Tender, Non Distended and Normal Bowel Sounds; No Organomegaly
Rectal: Deferred by Provider
Musculoskeletal: No Clubbing, No Cyanosis and No Edema
Skin: No Rash
Neuro: Nonfocal/grossly intact
PLAN:
# Unwitnessed fall
-probable vasovagal in setting of Flu
-ortho static vitals - negative
-monitor on tele
-has ablation scheduled outpt - informed office of flu
-f/u echo - mod concentric LVH; EEF 65-65%
#Influenza A
# Acute bronchitis
# History of lung cancer status post right lung resection
-Chest x-ray shows cardiomegaly, no overt pulmonary edema
-start tamiflu x 5 days
-stop steroids, no evidence of bronchospasms
# Metabolic encephalopathy possibly from Flu
-No history of dementia as per daughter
-Urinalysis negative
-resolved
# Mild rhabdomyolysis
-CPK of 885
-IV fluids, gentle
Paroxysmal atrial fibrillation
-Continue Tikosyn
-Eliquis
-Scheduled for ablation next week - informed Dr. Banks regarding possible appt change
Aortic stenosis status post TAVR
CAD with stents/history of NSTEMI
-Continue Plavix
-Continue isosorbide mononitrate
-Continue metoprolol
History of PEA arrest
Chronic HFpEF
Essential hypertension
Hyperlipidemia
Parkinson's disease
-Continue carbidopa-levodopa
COPD
-Continue budesonide, ipratropium
Full code
DVT prophylaxis�Eliquis
Cardiac diet
More than 30 minutes spent in discharge including
Final examination of the patient
Summarizing hospital stay
Instructions for continuing care to all relevant caregivers
Preparation of discharge records, prescriptions, and referral forms
Total time spent (36 in minutes):
Anticipated Discharge: Today
Subjective/Interval History
-
Date of Service: August 07, 2024
No acute events overnight
Objective Data
-
Labs:
Laboratory Results
08/07/24
07:13
WBC 9.5
Hgb 12.3 L
Hct 36.2 L
Plt Count 165
Sodium 137
Potassium 3.8
Chloride 103
Carbon Dioxide 27
BUN 21 H
Creatinine 0.7
Glucose 84
Calcium 8.4
Total Bilirubin 2.5 H
AST 51
ALT 20
Alkaline Phosphatase 69
Vital Signs:
Vital Signs
Temp Pulse Resp BP Pulse Ox
98.7 F 76 18 141/63 97
08/07/24 11:42 08/07/24 11:42 08/07/24 11:42 08/07/24 11:42 08/07/24 11:42
I&O
08/06/24 08/07/24 08/08/24
06:59 06:59 06:59
Intake Total 0 / 0 1380 / 1380
Output Total 200 / 200 1825 / 1825
Balance -200 / -200 -445 / -445
Review of Systems
-
History Source: Patient
All other systems: Not reviewed unless documented
Physical Exam
-
General: No Apparent Distress
HEENT: Normocephalic and Atraumatic
Respiratory: Negative Wheezes or Rales
Cardiac: Regular Rhythm and S1/S2
GI: Soft and Nontender
Neuro: AO x 3
Hematologic / Lymphatic: No Lymphadenopathy
Psych: Calm
Data Reviewed
-
Diagnostic Radiology: Report Reviewed by me
Labs: Labs Reviewed by me
--- NOTE | 2024-08-07 12:20 | W.DS.TRANS ---
DC Summary - Prefinish Operator
-
Discharge Instructions:
Discharge Diagnosis/Procedures Unwitnessed fall
Influenza
Diet Low Cholesterol,Low Fat
Activity As tolerated
Blood Work CBC and BMP in 1 week with PCP
Instructions:
Stand-Alone Forms:
Changes to Home Medications: Yes
Discharge Medications:
DC Medications w/original date entered in [facility]
atorvastatin 40 mg tablet 40 mg PO HS High cholesterol 02/10/21
clopidogrel 75 mg tablet 75 mg PO DAILY heart disease/condition #30 tabs 01/24/22
apixaban 5 mg tablet (Eliquis) 5 mg PO BID Blood clot prevention/tx #0 tabs 01/30/22
dofetilide 250 mcg capsule (Tikosyn) 250 mcg PO Q12H arrhythmia #60 caps 01/30/22
carbidopa 25 mg-levodopa 100 mg tablet 1 tab PO TID Neurological Condition 06/14/22
ipratropium bromide 17 mcg/actuation HFA aerosol inhaler 1 puff inhalation DAILY Lung/Breathing Issues 07/27/24
isosorbide mononitrate 60 mg tablet,extended release 24 hr 60 mg PO DAILY Heart Disease/Condition 07/27/24
metoprolol succinate 50 mg tablet,extended release 24 hr 75 mg PO DAILY Heart Disease/Condition 07/27/24
budesonide 0.5 mg/2 mL suspension for nebulization 0.5 mg inhalation R BID Lung/Breathing Issues 08/05/24
oseltamivir 75 mg capsule 75 mg PO BID 4 days #8 caps 08/07/24
Home Medication Changes
oseltamivir 75 mg capsule 75 mg PO BID 4 days #8 caps 08/07/24
Pending Results: No
[2024-08-07 15:17] VITALS: BP 138/65
== END 2024-08-07 17:12 | disposition home or self-care (01) | DRG 193 ==
LOC: 4 EAST ACU 14:11
PROVIDERS: Physician Assistant; ADMITTING PHYSICIAN Hospitalist; ATTENDING PHYSICIAN Internal Medicine; EMERGENCY PHYSICIAN Student in an Organized Health Care Education/Training Program; FAMILY PHYSICIAN Internal Medicine
DX: J10.1 Influenza due to other identified influenza virus with other respiratory manifestations (principal); G93.41 Metabolic encephalopathy; J44.0 Chronic obstructive pulmonary disease with (acute) lower respiratory infection; I50.32 Chronic diastolic (congestive) heart failure; J20.9 Acute bronchitis, unspecified; Z87.891 Personal history of nicotine dependence; Z79.01 Long term (current) use of anticoagulants; F02.80 Dementia in other diseases classified elsewhere, unspecified severity, without behavioral disturbance, psychotic disturbance, mood disturbance, and anxiety; G20.A1 Parkinson's disease without dyskinesia, without mention of fluctuations; I48.0 Paroxysmal atrial fibrillation; Z95.2 Presence of prosthetic heart valve; Z79.02 Long term (current) use of antithrombotics/antiplatelets; I25.10 Atherosclerotic heart disease of native coronary artery without angina pectoris; Z95.5 Presence of coronary angioplasty implant and graft; Z86.74 Personal history of sudden cardiac arrest; I11.0 Hypertensive heart disease with heart failure; Z85.118 Personal history of other malignant neoplasm of bronchus and lung; E78.00 Pure hypercholesterolemia, unspecified; T79.6XXA Traumatic ischemia of muscle, initial encounter; W19.XXXA Unspecified fall, initial encounter
CPT/HCPCS: 70450; 71046; 72125; 80048; 80053; 81003; 81015; 82550; 82962; 85025; 85027; 87502; 87811; 93005; 93306; 94640; 96360; 97162; 97166; 99285

== ENCOUNTER → 2024-11-18 09:28 | Outpatient (REF) | payer MEDICARE, BC, SELFPAY | LOC: RAD 09:28 | PROVIDERS: ATTENDING PHYSICIAN Nuclear Medicine Nuclear Cardiology; FAMILY PHYSICIAN Internal Medicine | DX: I65.23 Occlusion and stenosis of bilateral carotid arteries (principal) | CPT/HCPCS: 93880 ==

== ENCOUNTER → 2024-12-18 09:56 | Outpatient (REF) | payer MEDICARE, BC, SELFPAY ==
[2024-12-18 11:28] LABS: Hematocrit 43.7 % (39.0-52.0); Hemoglobin 14.2 g/dL (13.0-18.0); Mean Corp Hgb Conc. 32.5 g/dL (33.0-37.0); Mean Corpuscular Volume 91.4 fL (80.0-94.0); Nucleated Red Blood Cells % 0 % (-); Platelet Count 208 10^3/uL (130-400); Red Cell Dist. Width 15.4 % (11.5-14.5)
[2024-12-18 11:30] LABS: INR 1.19; PT 15.4 Sec (11.4-14.6)
[2024-12-18 11:48] LABS: ALT (SGPT) 15 U/L (0-50); AST (SGOT) 21 U/L (17-59); Albumin 4.3 g/dl (3.5-5.0); Alkaline Phosphatase 70 U/L (38-126); Blood Urea Nitrogen 22 mg/dl (9-20); Calcium 8.8 mg/dl (8.4-10.2); Carbon Dioxide 28 mmol/L (22-30); Chloride 108 mmol/L (98-107); Glucose 73 mg/dl (70-99); Magnesium 2.1 mg/dl (1.6-2.3); Potassium 4.1 mmol/L (3.5-5.1); Sodium 143 mmol/L (135-145); Total Protein 6.8 g/dl (6.3-8.2); eGFR > 60.00
== END ==
LOC: SDSPAT 09:56
PROVIDERS: ATTENDING PHYSICIAN Internal Medicine Cardiovascular Disease; FAMILY PHYSICIAN Internal Medicine; REFERRING PHYSICIAN Nuclear Medicine Nuclear Cardiology
DX: I48.0 Paroxysmal atrial fibrillation (principal)
CPT/HCPCS: 36415; 80053; 83735; 85025; 85610; 86850; 86900; 86901; 93005

== ENCOUNTER 2024-12-28 09:50 | Day surgery (SDC) | payer MEDICARE, BC, SELFPAY ==
[2024-12-18 10:48] VITALS: BMI 31.8
[2024-12-28] VITALS (15 sets, daily range): BP systolic 113–150; BP diastolic 54–76; BMI 31.6; BMI 32.3
--- NOTE | 2024-12-28 12:12 | ITS.CL.ABL ---
[facility] - Ablation
Ablation
Procedure Report:
ELECTROPHYSIOLOGIC STUDY AND POSSIBLE ABLATION
DATE: December 28, 2024
Primary Care Provider: Dr. Reza Mayfield
Primary Ceramic Mold Designer: Dr. Rojelio Banks
INDICATION:
Symptomatic Atrial Fibrillation.
Paroxysmal
HISTORY: See H and P.
Symptomatic AF, poorly controlled with attempted medical therapy
He underwent PVI and atrial flutter ablation February 2021 (typical cavotricuspid isthmus flutter ablation and PVI). Antiarrhythmic drug therapy, dronedarone, was stopped. He has developed recurrent symptomatic atrial fibrillation and presents
now for mapping and ablation.
His medical history is additionally significant for aortic stenosis having undergone TAVR August 2022, he also has known coronary artery disease with remote coronary artery bypass grafting surgery along with subsequent unstable angina requiring
intervention most recently in January 2022.
HAS-BLED: 2
Age
Antiplatelet Therapy
CHADSVASc: 4
HTN
Age
Vascular Dz: prior OK
PRESENTING RHYTHM: SR
HISTORY: See H and P.
Symptomatic AF, poorly controlled with attempted medical therapy.
ANTIARRHYTHMIC DRUG: Dofetilide 250 mcg twice daily
ANTICOAGULATION: Apixaban 5 mg twice daily
'TIME-OUT': called and confirmed.
SEDATION/ANESTHESIA: provided via the anesthesia department using general anesthesia.
PROCEDURE:
Ultrasound Guidance with real-time visualization of needle insertion and vessel patency performed by in for femoral venous Vascular Access.
Under real-time US guidance, the needle was advanced with negative pressure into the vein. The needle was seen entering the vessel lumen with a good return of dark red flow, the syringe was removed, non-pulsatile, dark red blood low was noted and
the wire was passed without difficulty, then the needle was removed. US confirmed the wire was in the vein, not going into an artery,
Images were taken and saved for the patient's permanent record. Imaging findings typical femoral venous anatomy. Direct visualization of needle puncture into the femoral vein was observed and recorded.
A decapolar CS catheter was placed within the CS for mapping and pacing.
The intracardiac ultrasound catheter was positioned in the RA for continuous intracardiac ultrasound imaging.
Heparin bolus and infusion to target ACT at 300 -350 seconds was administered. Transseptal puncture was performed. This entailed advancing a sheath with dilator into the superior vena cava and withdrawing both (monitoring intracardiac ultrasound,
fluoroscopy and tip pressure) with the tip oriented toward the atrial septum. The fossa ovalis was engaged (indicated by sudden displacement of the sheath tip as well as tenting of the fossa seen on intracardiac ultrasound).
Transseptal puncture was performed. Left atrial catheter position was confirmed by echocardiographic imaging, pressure monitoring (LA mean pressure 14 mm Hg) and fluoroscopy. The sheath was advanced over the dilator and positioned in the left
atrium.
The [employer] multipolar mapping/ablation Sphere-9 catheter was positioned through the transseptal sheath for high density mapping.
Geometry and voltage mapping was performed using the SimulScribe mapping system for three-dimensional electroanatomical mapping.
Catheter positioning was guided and confirmed using both I.C.E. and fluoroscopy.
High density electroanatomical three-dimensional mapping demonstrated LSPV, LIPV, RSPV, RIPV.
There is reconnection of the right superior pulmonary vein at its loree and its anterior superior quadrant.
Ablation strategy included PVI as well as mapping for extra PV contributors to atrial fibrillation which would also be targeted if present.
Pulse electric field energy delivery via the sphere 9 catheter was applied to the targeted area, re-isolating the right superior pulmonary vein
After accomplishing pulmonary venous isolation, mapping identified additional areas likely to be extra PV contributors to atrial fibrillation. These areas demonstrated patchy low voltage as well as complex fractionated electrograms. These areas can
be sites for the formation of rotors which can drive and maintain atrial fibrillation. These areas are known to be significant contributors to initiation and perpetuation of atrial fibrillation.
Additional energy applications/additional ablation sets targeted extra PV contributors to atrial fibrillation.
Targets for additional PFA ablation included:
LA posterior wall targeted with pulsed electric field energy isolating the posterior wall of the left atrium
After ablation of the posterior wall, additional targets were addressed:
LA inferior floor
The ridge of tissue between the left atrial appendage and the left sided pulmonary veins (Ligament of Ajit )
These areas were ablated using pulsed electric field energy eliminating the extra PV contributors to atrial fibrillation.
Post ablation mapping finds entrance and exit block at each of the pulmonary veins (LSPV, LIPV, RSPV, RIPV), the LA posterior wall and at the additional lines at the iferior/floor of the LA and the Ligament of Marshal rendering the sites no longer
able to contribute to atrial fibrillation.
He has had documented typical right atrial flutter and has had recurrence of what appears to be atrial flutter.
Therefore the area of the cavotricuspid isthmus which was previously ablated was mapped. Mapping demonstrates a gap in the flutter line towards the tricuspid valve annulus.
Using a combination of radiofrequency energy (closer to the tricuspid valve annulus) and pulsed electric field energy (closer to the inferior vena cava) and ablation line was created at approximately 6�7:00 on the CTI at 30 degrees SANTOS. Post
ablation mapping from either side of the line demonstrated block. There is bidirectional block across the CTI targeting typical right atrial flutter.
Programmed electrostimulation including burst atrial pacing as well the delivery of decremental extrastimuli down to atrial effective refractory period and no sustained arrhythmias could be induced.
I.C.E. :
Pre-Ablation Post-Ablation
LVEF: 55 % 55 %
WMA: none none
Pericardial effusion: none none
COMPLICATIONS:
None
SUMMARY:
- Mapping and ablation to isolate the PVs resulting in electrical isolation of the pulmonary veins
- Additional AF ablation sets X 2 after PVI (LA posterior wall, Inf/floor of the LA posterior wall and ligament of Ajit) resulting in elimination of the targeted extra PV contributors to atrial fibrillation.
- Mapping and ablation targeting second tachycardia (typical CTI dependent right atrial flutter) resulted in bidirectional block at the CTI and noninducibility of any sustained arrhythmias with programmed electrical stimulation
- 3-D Electroanatomical Mapping
- Intracardiac Ultrasound
- Ultrasound guidance for vascular access
Post ablation, I discussed today's findings and results with the patient's and son..
RECOMMENDATIONS:
- Observe in monitored bed.
- Maintain oral anticoagulation.
- Discontinue Tikosyn
- Office visit has been scheduled with Cristina Nelson NP on April 15, 2025
- Continue cardiovascular care with Dr Banks
Copy to:
Dr. Reza Mayfield
Dr. Rojelio Banks
[2024-12-28 15:07] LABS: ACT-LR - POC > 397 Seconds (116-155)
[2024-12-28 15:07] LABS: ACT-LR - POC > 397 Seconds (116-155)
[2024-12-28] MEDS: TIKOSYN 250 MCG PO (18:01)
[2024-12-28] MEDS: ELIQUIS 5 MG PO (20:19)
[2024-12-28] MEDS: SINEMET 25-100 1 TABLET PO (20:19)
[2024-12-28] MEDS: LIPITOR 40 MG PO (20:19)
[2024-12-29 02:27] VITALS: BP 129/76
[2024-12-29 02:39] VITALS: BMI 32.3
--- NOTE | 2024-12-29 02:49 | PTCARENOTE ---
Pt. in NSR so far overnight, VSS. Right groin dressing intact with no hematoma, pedals palpable. No complaints of pain/discomfort, OOB to use BR with assist x 1 & RW. Hoping for discharge later today.
[2024-12-29 02:54] LABS: Hematocrit 35.3 % (39.0-52.0); Hemoglobin 12.0 g/dL (13.0-18.0); Mean Corp Hgb Conc. 34.0 g/dL (33.0-37.0); Mean Corpuscular Volume 90.1 fL (80.0-94.0); Platelet Count 175 10^3/uL (130-400); Red Cell Dist. Width 16.0 % (11.5-14.5)
--- NOTE | 2024-12-29 02:56 | DOWNTIME ---
There was a [employer] Technical Lead Downtime on 12/29/2024 from 0100 to 12/29/2024 at 0220. Downtime documentation of patient's care, including medication administrations, has been reconciled in the electronic record per guidelines. Refer to the
patient's paper chart under the miscellaneous tab to see printed paper medication records and downtime forms.
[2024-12-29 03:17] LABS: Blood Urea Nitrogen 28 mg/dl (9-20); Calcium 8.3 mg/dl (8.4-10.2); Carbon Dioxide 25 mmol/L (22-30); Chloride 110 mmol/L (98-107); Estimated Creatinine Clearance 61 ml/min; Glucose 134 mg/dl (70-99); Magnesium 2.1 mg/dl (1.6-2.3); Potassium 4.8 mmol/L (3.5-5.1); Sodium 139 mmol/L (135-145); eGFR > 60.00
[2024-12-29] MEDS: TIKOSYN 250 MCG PO (06:09)
[2024-12-29] MEDS: PULMICORT 0.5 MG INH (07:45)
--- NOTE | 2024-12-29 08:30 | PTCARENOTE ---
Assumed care of pt from prev nsg shift; Pt AAOX3 w/no c/o CP or SOB. Pt's VSS w/HR in the 80's & BP 168/68 this AM. Pt is SR w/occas PAC's on telemetry monitoring. Pt w/R groin access site w/dressing intact w/area of marked old drainage & w/no signs
or symptoms of bleeding or hematoma. Pt anxious for D/C & this RN has spoken w/both pt's son & daughter re: pickup on D/C today. Pt w/call ballesteros within reach & plan of care ongoing.
[2024-12-29 08:33] VITALS: BP 168/65
[2024-12-29] MEDS: IMDUR (EXTENDED RELEASE) 60 MG PO (08:35)
[2024-12-29] MEDS: SINEMET 25-100 1 TABLET PO (08:35)
[2024-12-29] MEDS: TOPROL XL 100 MG PO (08:35)
[2024-12-29] MEDS: ELIQUIS 5 MG PO (08:35)
[2024-12-29] MEDS: PLAVIX 75 MG PO (08:35)
--- NOTE | 2024-12-29 08:40 | W.PN.CARDCBS ---
Addendum entered and electronically signed by Best Engel MD 12/29/24 13:58:
patient seen and examined
agree with MARINE CARGO SURVEYOR note and assessment
agree with MARINE CARGO SURVEYOR plan
exam:
bilateral groin CDI
cor regular
aao x 3
non focal neurologically
abd soft no ecchymosis either groin
tele reviewed
remainder per MARINE CARGO SURVEYOR note
Impression:
Paroxysmal symptomatic atrial fibrillation and Aflutter
post PVI 12/28/24
CAD with history of PEA arrest, SONDRA-OM2, SONDRA-proximal and mid LAD 2021.
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
Lung cancer five years, resected.
Parkinson's disease.
Pituitary adenoma.
Restrictive lung disease.
Plan :
post ablation feels well
groin stable
tele SR
OAC Eliquis
Will stop Dofetilide
Continue metoprolol
Activity restrictions reviewed
f/u Dr. Banks in 3 mo
home today
Original Note:
Today's Communication / Plan
-
post ablation, stable for d/c home
Impression / Plan
-
PCP: Reza Mayfield, DO
CDY: Rojelio Banks DO
Impression:
Paroxysmal symptomatic atrial fibrillation and Aflutter
post PVI 12/28/24
CAD with history of PEA arrest, SONDRA-OM2, SONDRA-proximal and mid LAD 2021.
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
Lung cancer five years, resected.
Parkinson's disease.
Pituitary adenoma.
Restrictive lung disease.
Plan :
post ablation feels well
groin stable
tele SR
OAC Eliquis
Will stop Dofetilide
Continue metoprolol
Activity restrictions reviewed
f/u Dr. Banks in 3 mo
home today
Progress Note - Postpartum Nurse
Subjective
Date of Service: December 29, 2024
denies cp, sob
Objective
Labs:
12/29/24 02:36
12/29/24 02:36
Labs
Hgb 12.0 g/dL (13.0-18.0) L 12/29/24 02:36
Hct 35.3 % (39.0-52.0) L 12/29/24 02:36
Plt Count 175 10^3/uL (130-400) 12/29/24 02:36
Sodium 139 mmol/L (135-145) 12/29/24 02:36
Potassium 4.8 mmol/L (3.5-5.1) 12/29/24 02:36
BUN 28 mg/dl (9-20) H 12/29/24 02:36
Creatinine 0.8 mg/dL (0.7-1.3) 12/29/24 02:36
Glucose 134 mg/dl (70-99) H 12/29/24 02:36
Vital Signs and I&O:
Vital Signs
Temp Pulse Resp BP Pulse Ox
97.8 F 82 20 168/65 95
12/29/24 08:37 12/29/24 08:33 12/29/24 08:37 12/29/24 08:33 12/29/24 08:37
Vital Signs
Temp Pulse Resp BP Pulse Ox
97.8 F 82 20 168/65 95
12/29/24 08:37 12/29/24 08:33 12/29/24 08:37 12/29/24 08:33 12/29/24 08:37
Intake & Output
12/27/24 12/28/24 12/29/24 12/30/24
06:59 06:59 06:59 06:59
Intake Total 1820 / 1820
Output Total 300 / 300
Balance 1520 / 1520
Physical Exam
Physical Exam
NAD, AOX3
S1, S2, RRR
CTAB, non labored, no wheeze
SNTND bsx4
R fem site c/d/i no HT, soft
--- NOTE | 2024-12-29 11:29 | CM ---
Chart reviewed. Patient is independent of ADLS, lives with his in a apartment at [facility], [facility] acc, ambulates with a SPC, not current with VN but just finished up with [facility]. Plan is for the patient to return home.
--- NOTE | 2024-12-29 11:30 | PTCARENOTE ---
D/C'd pt's IV line & surveillance system monitor. Discussed D/C instructions w/pt. Pt's son picked pt up downstairs in the lobby to drive him home.
--- NOTE | 2024-12-29 12:08 | W.DS.TRANS ---
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
-
Discharge Instructions:
Sleep Apnea Risk Intermediate
Discharge Diagnosis/Procedures AFib, s/p ablation
Diet Low Cholesterol
Driving Restrictions No driving for 24 hours
Instructions:
Stand-Alone Forms: DC Instructions- Cath/EP Lab
Changes to Home Medications: Yes
Discharge Medications:
DC Medications w/original date entered in [employer]
atorvastatin 40 mg tablet 40 mg PO HS High cholesterol 02/10/21
clopidogrel 75 mg tablet 75 mg PO DAILY heart disease/condition #30 tabs 01/24/22
apixaban 5 mg tablet (Eliquis) 5 mg PO BID Blood clot prevention/tx #0 tabs 01/30/22
carbidopa 25 mg-levodopa 100 mg tablet 1 tab PO BID Neurological Condition 06/14/22
ipratropium bromide 17 mcg/actuation HFA aerosol inhaler 1 puff inhalation DAILY Lung/Breathing Issues 07/27/24
isosorbide mononitrate 60 mg tablet,extended release 24 hr 60 mg PO DAILY Heart Disease/Condition 07/27/24
budesonide 0.5 mg/2 mL suspension for nebulization 0.5 mg inhalation DAILY Lung/Breathing Issues 08/05/24
metoprolol succinate 100 mg tablet,extended release 24 hr 100 mg PO DAILY 12/16/24
amoxicillin 500 mg tablet 500 mg PO ONCE PRN prior to dental procedure 12/28/24
Home Medication Changes
stop dofetilide
Pending Results: No
== END 2024-12-29 11:30 | disposition home or self-care (01) ==
LOC: CATH 09:50
PROVIDERS: Nurse Practitioner; ATTENDING PHYSICIAN Internal Medicine Cardiovascular Disease; REFERRING PHYSICIAN Nuclear Medicine Nuclear Cardiology
DX: I48.0 Paroxysmal atrial fibrillation (principal); I48.92 Unspecified atrial flutter; D35.2 Benign neoplasm of pituitary gland; E78.5 Hyperlipidemia, unspecified; G20.A1 Parkinson's disease without dyskinesia, without mention of fluctuations; I10 Essential (primary) hypertension; I25.10 Atherosclerotic heart disease of native coronary artery without angina pectoris; I25.2 Old myocardial infarction; I35.0 Nonrheumatic aortic (valve) stenosis; I46.9 Cardiac arrest, cause unspecified; I49.1 Atrial premature depolarization; J98.4 Other disorders of lung; Z79.01 Long term (current) use of anticoagulants; Z79.899 Other long term (current) drug therapy; Z85.118 Personal history of other malignant neoplasm of bronchus and lung; Z86.018 Personal history of other benign neoplasm; Z88.8 Allergy status to other drugs, medicaments and biological substances; Z95.1 Presence of aortocoronary bypass graft; Z95.2 Presence of prosthetic heart valve; Z95.5 Presence of coronary angioplasty implant and graft; Z96.651 Presence of right artificial knee joint; Z98.890 Other specified postprocedural states; I65.21 Occlusion and stenosis of right carotid artery; Z95.820 Peripheral vascular angioplasty status with implants and grafts
CPT/HCPCS: C1894; C1769; C1766; C1730; C1892; C1733; 80048; 83735; 85027; 85347; 93005; 93655; 93656; 93657; 94640; C1760

== ENCOUNTER 2025-01-04 14:08 | Inpatient (IN) | payer MEDICARE, BC, SELFPAY ==
[2025-01-04] VITALS (9 sets, daily range): BP systolic 150–158; BP diastolic 59–97; BMI 31.9
--- NOTE | 2025-01-04 10:59 | ED.GENMED ---
History of Present Illness
<Celeste Palm PA-C - Last Filed: 01/04/25 13:05>
General
Chief Complaint: Breathing Problem
Source: patient and family
Exam Limitations: none
Time Seen by Provider: 01/04/25 10:40
Nursing documentation reviewed up to this point in time: agreed with
History of Present Illness
History of Present Illness:
see MDM
Past History
<HAROON Bruner Last Filed: 01/04/25 13:05>
Past History
ED Past Medical History: Arrthythmia (a fib with ablation 02/2021), CAD, Cancer (lung), HTN, Hypercholesterolemia and Valvular disease; Negative GA
ED Past Surgical History: Cardiac (stent), Cholecystectomy, Orthopedic and Other (lung resection for CA, cleared as of 05/29/21 no radiation or chemo.)
Social History
Tobacco: Former smoker
Alcohol: Occasional
Drug: None
Personal:
Living: with family
Employment: Retired
Family History
Family History: Other
Review of Systems
<HAROON Bruner Last Filed: 01/04/25 13:05>
Review of Systems
Allergies reviewed?: Yes
All Other Systems: Not applicable
Phy Exam
<HAROON Bruner Last Filed: 01/04/25 13:05>
Physical Exam
Physical Exam:
GENERAL: Alert ,tachypneic
EYE: pupils equal and reactive
NECK: Supple
ENT: o/p clr, hoarse voice, slightly injected;
CARDIAC: irregular, mild symmetric pitting B/L LE edema
LUNGS: dimiisnied, tachpneic, no acute respiratory distress, no wheezes/rales/rhonchi
ABDOMEN: Soft, without focal tenderness, no r/g, no cvat, normal bowel sounds
inguinal region: post cath pt has large area echmosis and a small hematoma in th R groin that is 1.5 cm nontender
NEUROLOGICAL: Alert and oriented, no focal neuro deficits
SKIN: Warm and dry, skin intact.
MUSCULOSKELETAL: bilateral mild edema, well perfused. neg gonzalo's sign
PSYCH: Normal and appropriate interaction.
Scores
<Celeste Palm PA-C - Last Filed: 01/04/25 13:05>
Heart Failure Risk
Heart Failure Risk Score: Yes
History of Stroke or TIA: No
History of intubation for respiratory distress: No
Heart rate on ED arrival >/= 110: No
SaO2 <90% on arrival on room air: No
HR >/=110 during 3min walk test (or too ill to perform test): No
ECG has acute ischemic changes: No
Urea >/=12mmol/L (BUN 33.6mg/dL): No
Serum CO2>/=35mmol/L: No
Troponin I or T elevated to GA Level (0.4mg/dL): No
NT-proBNP >/=5,000ng/L (5,000pg/ml): Yes
HF Risk Score: 1
Admission Status: MEDIUM RISK 5.1% Consider observation or discharge to home with homecare & f/u visit to PCP/Deputy City Clerk, or SNF for treatment
<Estevan Arenas MD - Last Filed: 01/04/25 13:11>
Heart Failure Risk
HF Risk Score: 1
Admission Status: MEDIUM RISK 5.1% Consider observation or discharge to home with homecare & f/u visit to PCP/Deputy City Clerk, or SNF for treatment
Course
<Celeste Palm PA-C - Last Filed: 01/04/25 13:05>
Orders/Labs/Results
Orders:
Orders
01/04/25 09:55
Electrocardiogram (*1) Urgent
Reason for Study: Shortness of Breath
EKG- Treatment ONCE
01/04/25 10:49
Chest X-ray Portable [CR Chest Portable - 1 View] Stat
Comment:
Reason For Exam: sob
Reason Study Needs to be Portable: Unable to Transport
01/04/25 10:50
Cardiac Monitoring- Treatment ONCE
01/04/25 11:00
Type+Screen Urgent
COVID-19 Antigen Urgent
Source: Nasal Swab
Complete Blood Count/With Diff Urgent
Comprehensive Metabolic Panel Urgent
NT-proBNP Urgent
Troponin I Urgent
01/04/25 11:06
Echo 2D MMode Color/Doppler Stat
Reason for Study: dyspnea recent ablation
01/04/25 11:16
Albuterol Nebs [Ventolin Nebules] 2.5 mg INH R NOW STA
01/04/25 11:53
Furosemide [Lasix] 40 mg IV NOW STA
Abnormal Lab Results
01/04/25
11:00
WBC 11.2 H 10^3/uL
(4.8-10.8)
RBC 3.72 L 10^6/uL
(4.70-6.10)
Hgb 11.1 L g/dL
(13.0-18.0)
Hct 33.6 L %
(39.0-52.0)
RDW 16.3 H %
(11.5-14.5)
Abs Immat Gran (auto) 0.1 H 10^3/uL
(0-0.05)
Absolute Neuts (auto) 9.4 H 10^3/uL
(1.4-6.5)
Absolute Lymphs (auto) 0.7 L 10^3/uL
(1.2-3.4)
Absolute Monos (auto) 0.9 H 10^3/uL
(0.1-0.6)
Neutrophils % 84.5 H %
(42.2-75.2)
Lymphocytes % 6.1 L %
(20.5-51.1)
Chloride 110 H mmol/L
(98-107)
Glucose 146 H mg/dl
(70-99)
Calcium 8.3 L mg/dl
(8.4-10.2)
Total Bilirubin 4.3 H mg/dl
(0.2-1.3)
Troponin I 0.045 H* ng/ml
Total Protein 5.9 L g/dl
(6.3-8.2)
01/04/25 11:00
01/04/25 11:00
Vital Signs
Initial and Last Documented VS:
Initial Vital Signs
Temp Pulse Resp BP Pulse Ox
97.8 F 71 16 156/97 95
01/04/25 09:52 01/04/25 09:52 01/04/25 09:52 01/04/25 09:52 01/04/25 09:52
Last Documented Vital Signs
Temp Pulse Resp BP Pulse Ox
97.8 F 80 26 156/84 93
01/04/25 09:52 01/04/25 13:00 01/04/25 13:00 01/04/25 13:00 01/04/25 13:00
<Estevan Arenas MD - Last Filed: 01/04/25 13:11>
Orders/Labs/Results
Orders:
Orders
01/04/25 09:55
Electrocardiogram (*1) Urgent
Reason for Study: Shortness of Breath
EKG- Treatment ONCE
01/04/25 10:49
Chest X-ray Portable [CR Chest Portable - 1 View] Stat
Comment:
Reason For Exam: sob
Reason Study Needs to be Portable: Unable to Transport
01/04/25 10:50
Cardiac Monitoring- Treatment ONCE
01/04/25 11:00
Type+Screen Urgent
COVID-19 Antigen Urgent
Source: Nasal Swab
Complete Blood Count/With Diff Urgent
Comprehensive Metabolic Panel Urgent
NT-proBNP Urgent
Troponin I Urgent
01/04/25 11:06
Echo 2D MMode Color/Doppler Stat
Reason for Study: dyspnea recent ablation
01/04/25 11:16
Albuterol Nebs [Ventolin Nebules] 2.5 mg INH R NOW STA
01/04/25 11:53
Furosemide [Lasix] 40 mg IV NOW STA
Abnormal Lab Results
01/04/25
11:00
WBC 11.2 H 10^3/uL
(4.8-10.8)
RBC 3.72 L 10^6/uL
(4.70-6.10)
Hgb 11.1 L g/dL
(13.0-18.0)
Hct 33.6 L %
(39.0-52.0)
RDW 16.3 H %
(11.5-14.5)
Abs Immat Gran (auto) 0.1 H 10^3/uL
(0-0.05)
Absolute Neuts (auto) 9.4 H 10^3/uL
(1.4-6.5)
Absolute Lymphs (auto) 0.7 L 10^3/uL
(1.2-3.4)
Absolute Monos (auto) 0.9 H 10^3/uL
(0.1-0.6)
Neutrophils % 84.5 H %
(42.2-75.2)
Lymphocytes % 6.1 L %
(20.5-51.1)
Chloride 110 H mmol/L
(98-107)
Glucose 146 H mg/dl
(70-99)
Calcium 8.3 L mg/dl
(8.4-10.2)
Total Bilirubin 4.3 H mg/dl
(0.2-1.3)
Troponin I 0.045 H* ng/ml
Total Protein 5.9 L g/dl
(6.3-8.2)
01/04/25 11:00
01/04/25 11:00
Vital Signs
Initial and Last Documented VS:
Initial Vital Signs
Temp Pulse Resp BP Pulse Ox
97.8 F 71 16 156/97 95
01/04/25 09:52 01/04/25 09:52 01/04/25 09:52 01/04/25 09:52 01/04/25 09:52
Last Documented Vital Signs
Temp Pulse Resp BP Pulse Ox
97.8 F 80 26 156/84 93
01/04/25 09:52 01/04/25 13:00 01/04/25 13:00 01/04/25 13:00 01/04/25 13:00
<Celeste Palm PA-C - Last Filed: 01/04/25 13:05>
MDM/Problems Addressed
Differential Diagnosis Includes:
see MDM
MDM/Problems Addressed:
Note:
CHIEF COMPLAINT(S)
Heavy breathing and chest pain following recent medical procedure.
HISTORY OF PRESENT ILLNESS
The patient, a male, recently underwent an ablation for atrial fibrillation last week. Post-procedure, the patient reported experiencing heavy breathing and chest pain since , following discharge from the hospital on Saturday. The patient
denies any fever. He noticed swelling in his legs but did not report any significant discomfort at the groin site of the procedure, apart from observing bruising and a small bump, which was assessed as typical post-procedure swelling with no
significant pain and no indication of infection related to scar tissue. The patient reported difficulty breathing with exertion, as indicated by his oxygen saturation levels ranging from 94% to 97%, while appearing to work hard to breathe. he does
have hoarse voice but without painful swallowing and no signficatn cough
no h/o CHF
no lasix
PHYSICAL EXAM
- General: Appeared in mild respiratory distress.
- Cardiovascular: Enlarged veins or significant swelling noted, and signs of typical post-procedural bruising at the groin insertion site, with a palpable small bump.
- Respiratory: Oxygen saturation levels ranged from 94% to 97% on ambient air, with noted effort in breathing.
- Nursing notes reviewed and vital signs reviewed.
PLAN
1. Order portable chest imaging to assess respiratory symptoms and rule out any potential complications post-ablation, such as heart failure or infection.
2. Initiate a lab workup to identify any underlying causes for the current symptoms.
3. Notify and coordinate with the patient�s tool and fixture repairer regarding the current visit and symptoms to evaluate the potential for post-ablation heart failure.
DIFFERENTIAL DIAGNOSIS
The Differential Diagnosis includes, in no particular order and is not limited to:
1. Post-ablation syndrome
2. Heart failure
3. Atrial fibrillation recurrence
4. Post-procedural infection
5. Pulmonary embolism
6. Pleural effusion
7. Pneumothorax
8. Pericarditis
9. Myocardial infarction
10. Drug-induced pulmonary issues.
CARE-UPDATE
01/04/25 - 12:24
89 y/o m s/p ablation for AF last week here with dyspnea x 4 days initially on exertion, now at rest; also waith hoarse voice, but without odynophagia; able to eat
not hypoxic but tachpneic
mild fluid in legs
cxr indep reveiwed, shows mild edema
bnp elevated 7000
will give dose lasix
for the hoarse voice, consider that this could be post intubation from procedure or infectious
but ENT consulted who will examine to
be sure no upper airway concerns
echo was unremarkable
<Celeste Palm PA-C - Last Filed: 01/04/25 13:05>
*Pulse Oximetry
SaO2: 97
Oxygen Mode of Delivery: Room air
Patient hypoxic: no (95)
*Critical Care Note
Total Time (30-74mins, 75-104mins- exclusive of procedures): Not Applicable
ED Attending Note
<Celeste Palm PA-C - Last Filed: 01/04/25 13:05>
-
Portions of this chart may have been created with voice recognition software.� Occasional wrong word or��sound alike� substitutions may have occurred due to the inherent limitations of voice recognition software.
<Estevan Arenas MD - Last Filed: 01/04/25 13:11>
ED Attending Note
Patient seen and examined by attending physician: Yes
I performed the substantive portion of visit, reviewed & personally made and approve the management plan that is documented in note by myself or ROGER.: Yes
ED Attending Note:
89-year-old male recent ablation. A few days later he developed shortness of breath hoarseness to his voice. No inability to swallow. Symptoms are progressed last 3 to 4 days.
On exam patient is nontoxic. Mild tachypnea. Minimal expiratory wheeze and rhonchi. Heart regular rate and rhythm. Warm and dry. Perfusing well.
Hoarseness to his voice. No drooling or stridor. Area of ecchymosis to the soft palate and lateral recess. Area of typical postprocedure ecchymosis to the right groin. No pulsatile masses. No infection.
Impression is shortness of breath possible traumatic issues to the posterior pharynx. Possibly related intubation. Will ask ENT to evaluate. May be in a touch of heart failure. Echocardiogram stable. Warrants inpatient management.
Discharge Plan
Departure
Patient Disposition: Admit
Date of Disposition: 01/04/25
Time of Disposition: 12:37
Admit to: Telemetry
Presentation/result/management discussed w/ accepting MD/DO: Hospitalist
Condition: Fair
Covid-19: Negative COVID-19
Discharge Problem:
CHF (congestive heart failure)
Prescriptions:
No Action
atorvastatin 40 MG tablet
40 mg PO HS
clopidogrel 75 mg Tablet
75 mg PO DAILY Qty: 30 11RF
Eliquis 5 MG tablet
5 mg PO BID Qty: 0 0RF
carbidopa-levodopa 25-100 mg tablet
1 tab PO BID
isosorbide mononitrate 60 mg Tablet Extended Release 24 Hr
60 mg PO DAILY
ipratropium bromide 17 mcg/actuation Hfa Aerosol Inhaler
1 puff INHALATION R DAILY
budesonide 0.5 mg/2 mL Suspension For Nebulization
0.5 mg INHALATION R DAILY
metoprolol succinate 100 mg Tablet Extended Release 24 Hr
100 mg PO DAILY
Referrals:
Reza Mayfield DO [Family Provider, Internal Medicine]
Interventions
Interventions:
*Risk Screen - Suicide Last Done: 01/04/25 09:52
*General Assessment Last Done: 01/04/25 10:34
*Neglect/Abuse Screening Last Done: 01/04/25 09:52
*ED- Fall Risk Assessment Last Done: 01/04/25 10:34
*ED COVID-19 Vaccine History Last Done: 01/04/25 10:34
ED- Cardiac Assessment Last Done: 01/04/25 11:18
ED- Pulmonary Assessment Last Done: 01/04/25 11:18
Discharge Date and Time
Print Language: CHINESE
[2025-01-04 11:19] LABS: Hematocrit 33.6 % (39.0-52.0); Hemoglobin 11.1 g/dL (13.0-18.0); Mean Corp Hgb Conc. 33.0 g/dL (33.0-37.0); Mean Corpuscular Volume 90.3 fL (80.0-94.0); Nucleated Red Blood Cells % 0 % (-); Platelet Count 218 10^3/uL (130-400); Red Cell Dist. Width 16.3 % (11.5-14.5)
[2025-01-04] MEDS: VENTOLIN NEBULES 2.5 MG INH (11:22)
[2025-01-04 11:27] LABS: ALT (SGPT) 23 U/L (0-50); AST (SGOT) 26 U/L (17-59); Albumin 3.6 g/dl (3.5-5.0); Alkaline Phosphatase 66 U/L (38-126); Blood Urea Nitrogen 20 mg/dl (9-20); Calcium 8.3 mg/dl (8.4-10.2); Carbon Dioxide 27 mmol/L (22-30); Chloride 110 mmol/L (98-107); Glucose 146 mg/dl (70-99); Potassium 3.8 mmol/L (3.5-5.1); Sodium 143 mmol/L (135-145); Total Protein 5.9 g/dl (6.3-8.2); eGFR > 60.00
[2025-01-04 11:39] LABS: Troponin I 0.045 ng/ml
[2025-01-04 11:40] LABS: COVID-19 Antigen Negative (Negative)
[2025-01-04] MEDS: LASIX 40 MG IV (11:58)
--- NOTE | 2025-01-04 13:11 | CON.MD ---
Consultation - Medical
-
dictated.
longstanding intermittent hoarseness, temporarily worsened after ablation/intubation last week, may or may not be back to baseline.
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
Ecchymosis of R soft palate and tonsil, presumably from intubation compounded by eliquis/plavix, but no injury to larynx.
No upper airway obstruction.
would benefit from outpatient Speech Therapy.
--- NOTE | 2025-01-04 13:14 | HPS.HSE ---
Family Physician
-
Family Physician: Reza Mayfield
Chief Complaint
-
Shortness of breath, leg edema, hoarse voice
History of Present Illness
89-year-old male from home with his and son complaining of shortness of breath, SALAZAR and hoarse voice over the past few days. He is status post A-fib ablation on 12/28/2024. He reports some mild swelling to his ankles along with a hoarse voice
but denies any difficulty swallowing, cough, fever, chills, chest pain, palpitations, abdominal pain, nausea, vomiting, diarrhea, urinary symptoms. He was evaluated at bedside by ENT who recommended outpatient speech therapy and had bedside
echocardiogram. Labs revealed mild pulmonary edema.
He has a past medical history paroxysmal A-fib/a flutter status post PVI 12/28/2024,CAD with history of PEA arrest/NSTEMI, SONDRA-OM2, SONDRA-proximal and mid LAD 2021, nonischemic myocardial injury, aortic stenosis s/p TAVR, right ICA stenosis stented
11/27/2024, lung cancer 5 years ago over resected, restrictive lung disease, Parkinson's, pituitary adenoma status post resection
Medical History
Past Medical History
Past Medical History: Reports Other ( paroxysmal atrial fibrillation on Eliquis, aortic stenosis status post TAVR, NSTEMI, CAD status post stents, PEA arrest, HFpEF, right lung cancer status post resection, hypertension, hyperlipidemia, Parkinson
disease, pituitary mass)
Past Surgical History: Reports None
Social History
Tobacco: Non-smoker
Alcohol: Occasional (Wine)
Drug: None
Personal:
Living: With Family ()
Employment: Retired
Family History
Family History: Not pertinent
Allergies / Home Medications
Allergies reflects when Allergies were last updated in [employer].
Home Medications with original date entered in [employer]
Allergy/Medication List:
Allergies
Allergy/AdvReac Type Severity Reaction Status Date / Time
lisinopril Allergy Unknown Verified 01/04/25 09:54
Home Medications
atorvastatin 40 mg tablet 40 mg PO HS High cholesterol 02/10/21
clopidogrel 75 mg tablet 75 mg PO DAILY heart disease/condition #30 tabs 01/24/22
apixaban 5 mg tablet (Eliquis) 5 mg PO BID Blood clot prevention/tx #0 tabs 01/30/22
carbidopa 25 mg-levodopa 100 mg tablet 1 tab PO BID Neurological Condition 06/14/22
ipratropium bromide 17 mcg/actuation HFA aerosol inhaler 1 puff inhalation R DAILY Lung/Breathing Issues 07/27/24
isosorbide mononitrate 60 mg tablet,extended release 24 hr 60 mg PO DAILY Heart Disease/Condition 07/27/24
budesonide 0.5 mg/2 mL suspension for nebulization 0.5 mg inhalation R DAILY Lung/Breathing Issues 08/05/24
metoprolol succinate 100 mg tablet,extended release 24 hr 100 mg PO DAILY 12/16/24
Review of Systems
-
History Source: Patient and Family ( and son at bedside)
A 12 point ROS was completed and negative except as noted: Yes
Constitutional: Reports Fatigue; Denies Chills
EENT: Reports Other (Hoarse voice); Denies Sore Throat or Runny Nose
Respiratory: Reports Trouble Breathing (Shortness of breath, SALAZAR); Denies Cough or Hemoptysis
Cardiac: Denies Chest Pain, Diaphoresis, Palpitations or Syncope
Abdomen/GI: Denies Abdominal Pain, Nausea, Vomiting, Diarrhea, Constipated, Bloody Stools or Black Stools
: Denies Dysuria, Frequency, Flank Pain, Incontinence, Difficulty Voiding, Urgency, Bleeding or Dark Urine
Musculoskeletal: Reports Edema (+1 bilateral ankles); Denies Joint Pain
Skin: Denies Itching or Rash
Neurological: Denies Dizzy, Headache or Weakness
Endocrine: Reports No Symptoms
Hematologic/Lymphatic: Reports No Symptoms
Psych: Reports Calm
Physical Exam
Vital Signs
Vital Signs
Temp Pulse Resp BP Pulse Ox
97.8 F 80 26 156/84 93
01/04/25 09:52 01/04/25 13:00 01/04/25 13:00 01/04/25 13:00 01/04/25 13:00
Physical Exam
General: Comfortable and Conversant; No Pain, Fever or Chills
HEENT: NormoCephalic, Anicteric, Moist mucous membranes, PERRLA, [place] Conjunctivae, No Ptosis and Other (Mild hoarse voice, no difficulty swallowing own saliva no difficulty eating per patient); No Pharyngeal Erythema
Respiratory: Clear; No Wheezes, Rales or Rhonchi
Cardiac: S1/S2, Regular Rhythm, Peripheral Edema (Bilateral ankle edema +1) and JVD; No Murmur, Rub or Gallop
Breast: Deferred by me
GI: Soft, Non Tender, Non Distended, Normal Bowel Sounds, No Hepatosplenomegaly and Other (Ventral hernia present soft nontender)
Rectal: Deferred by Provider
Genito-urinary: Deferred by me
Musculoskeletal: No Clubbing, No Cyanosis, Edema, Left Lower Extremity (+1 around ankles) and Edema, Right Lower Extremity (+1 around ankles); No Edema, Left Upper Extremity or Edema, Right Upper Extremity
Skin: Warm and Dry; No Rash or Jaundice
Neuro: AO x 3, No Motor Deficits, Nonfocal/grossly intact, Cranial Nerves Intact, No Sensory Deficits and Other (Mild hoarse voice); No Slurred Speech, Facial Droop, Tremors or Sedated
Psych: Calm
Laboratory Results
-
01/04/25 11:00
01/04/25 11:00
Laboratory Results
Total Bilirubin 4.3 mg/dl (0.2-1.3) H 01/04/25 11:00
AST 26 U/L (17-59) 01/04/25 11:00
ALT 23 U/L (0-50) 01/04/25 11:00
Alkaline Phosphatase 66 U/L (38-126) 01/04/25 11:00
Troponin I 0.045 ng/ml H* 01/04/25 11:00
Data Reviewed
-
Lab Data: Labs Reviewed by me
Impression/Plan
-
Impression/plan:
Admit to telemetry
#Acute CHF
BNP 7240
I/O, daily weights
Lasix 40 mg given in ER with output so far 500 cc
-Continue Lasix 40 mg daily
- Consult [facility] cardiology
- PT consult
2D echo 01/04/2025: EF 60-65%, mild LVH, normal LVS, LVSF, no wall abnormalities, TAVR no aortic regurg seen, mild TR, PASP 65-70 mmHg
#Hoarse voice�longstanding intermittent temporarily worsened by intubation last week�muscle tension dysphonia
-Consult ENT�seen at bedside by Dr. Rangel
- ENT recommended outpatient speech therapy
#Nonischemic myocardial injury due to recent cardiac ablation
Troponin 0.045 patient is status post ablation A-fib on 12/28/2024
Ekg: SR with PAC'S
#Paroxysmal symptomatic atrial fibrillation and Aflutter
post PVI 12/28/24
- Continue Eliquis 5 mg twice daily, metoprolol succinate 100 mg daily recent Tikosyn DC'd on 12/29/2024 post ablation
#CAD with history of PEA arrest/NSTEMI, SONDRA-OM2, SONDRA-proximal and mid LAD 2021
- Continue atorvastatin 40 mg at bedtime, Plavix 75 mg daily, metoprolol succinate 100 mg daily
- Continue Imdur 60 mg daily
#Aortic stenosis status post TAVR
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
#Lung cancer five years, resected
#Restrictive lung disease
#Parkinson's disease
- Continue carbidopa levodopa
#Pituitary adenoma status post resection
DVT prophylaxis
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
Full code
--- NOTE | 2025-01-04 14:03 | W.PN.UPDATE ---
Update Note
Progress Note Update
This is an addendum to H&P written by Deedee Menezes on 01/04/2025. �Patient seen and examined dependently with CAR LOT ATTENDANT.
89-year-old male past medical history of paroxysmal atrial fibrillation/flutter status post PVI 12/28, CAD, PEA arrest, aortic stenosis status post TAVR, right internal carotid artery stenosis status post 10, lung cancer status post resection,
restrictive lung disease, Parkinson disease, pituitary adenoma s/p resection presenting with shortness of breath, slight lower extremity swelling, hoarseness of voice. �Recently underwent ablation for atrial fibrillation on 12/28 requiring intubation.
Labs show cardiac BNP of 7000. �Troponin 0.045. �EKG shows sinus rhythm with PACs. �White cell count of 11.
Chest x-ray shows interstitial pulmonary edema pattern with cardiomegaly and small right pleural effusion.
Concern for acute CHF exacerbation.
Check I's and O's, daily weights, 40 IV Lasix daily. �Cardiology consulted. 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 Outpatient speech therapy recommended.
--- NOTE | 2025-01-04 14:16 | CON.CAR ---
Addendum entered and electronically signed by Rojelio Banks DO 01/04/25 16:19:
I saw and examined the patient.
The Commercial Analyst's note was reviewed and I agree with the note.
Comment:
Plan:
Recent PVI December 28 2024 presents with progressive dyspnea and wt gain over last few days.
Cont IV lasix for HF.
HF teaching.
Trend Is and Os, daily wts and cr.
pBNP is the highest it has ever been
Remains in sinus.
Cont Toprol and Eliquis.
ENT evaluation suggests ecchymosis of the right soft palate and tonsil that was presumably from intubation during procedure last week, but no evidence of laryngeal injury and no airway obstruction so OAC should be continued
Patient is also chronically on Plavix for history of carotid disease and CAD
Cont medical therapy of nonMI troponin.
Discussed with at bedside and family member.
Original Note:
Consultation
Consultation Request
Date/Time Consultation Requested: 01/04/2025
Date/Time Consultation Performed: 01/04/2025
Requesting Provider: Dr. Richard
Performing Provider: Dr. Banks
Reason for Consultation: Acute HF, recent ablation
Medical History
-
History of Present Illness:
Patient came to the ER today with increased SOB and is being admitted with acute HF and cardiology has been consulted. Patient had PVI and CTI ablations on 12/28/2024 for A-fib and atypical atrial flutter respectively. Patient stayed the night was
discharged to home the following day in [place]. Patient left on a Saturday and says by he began to feel more short of breath, but denies any orthopnea, chest pain or edema. Patient felt he had an episode of palpitations yesterday and again
today, but those were short-lived. Patient's Tikosyn was stopped following ablation. Patient came to the ER with ongoing SOB and is being admitted with acute HF, his proBNP is the highest it has ever been at 7240.
PMH:
Chronic HFpEF
Paroxysmal Afib w RVR
h/o atypical atrial flutter and atrial tachycardia
s/p PVI 03/28/15
s/p PVI and atrial flutter ablation 02/14/21
Previous Multaq therapy, stopped after 02/14/21 ablation
s/p PVI CTI ablation for right atrial flutter 12/28/24
Chronic Tikosyn therapy since 06/2021, stopped after ablation 12/28/24
Chronic Eliquis therapy
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
h/o NSTEMI and PEA arrest treated with CPR and Epi 06/14/22
CAD
LCx and proximal LAD stents, patent by cath 05/14/2022
NSTEMI and IFR positive long diffuse mid LAD 50-60% stenosis s/p SONDRA to LAD 06/06/22
cath with stable CAD, patent LAD/circ stents 06/14/22
HTN
Hyperlipidemia
Parkinson's disease
COPD
Past Medical History
Past Medical History: Other (In HPI)
Past Surgical History: Cardiac (TAVR, PCI of LCx and LAD, PVI 2014 and 2020), Orthopedic and Other (carotid stent)
Social History
Tobacco: Non-Smoker
Alcohol: None
Drug: None
Personal:
Living: With Family
Family History
Family History: Other (CVA)
Allergies / Home Medications
Allergy/AdvReac Type Severity Reaction Status Date / Time
lisinopril Allergy Unknown Verified 01/04/25 09:54
�Medication �Instructions �Recorded �Confirmed �Type
atorvastatin 40 mg tablet 40 mg PO HS High cholesterol 02/10/21 01/04/25 History
clopidogrel 75 mg tablet 75 mg PO DAILY heart 01/24/22 01/04/25 Rx
disease/condition #30 tabs
apixaban 5 mg tablet (Eliquis) 5 mg PO BID Blood clot 01/30/22 01/04/25 Rx
prevention/tx #0 tabs
carbidopa 25 mg-levodopa 100 mg 1 tab PO BID Neurological Condition 06/14/22 01/04/25 History
tablet
ipratropium bromide 17 1 puff inhalation R DAILY 07/27/24 01/04/25 History
mcg/actuation HFA aerosol inhaler Lung/Breathing Issues
isosorbide mononitrate 60 mg 60 mg PO DAILY Heart 07/27/24 01/04/25 History
tablet,extended release 24 hr Disease/Condition
budesonide 0.5 mg/2 mL suspension 0.5 mg inhalation R DAILY 08/05/24 01/04/25 History
for nebulization Lung/Breathing Issues
metoprolol succinate 100 mg 100 mg PO DAILY 12/16/24 01/04/25 History
tablet,extended release 24 hr
Review of Systems
-
History Source: Patient and Family ( sitting bedside and helping with HPI)
All other systems: Negative unless noted
Physical Exam
Vital Signs
Temp Pulse Resp BP Pulse Ox
97.8 F 71 17 156/84 94
01/04/25 09:52 01/04/25 13:30 01/04/25 13:30 01/04/25 13:00 01/04/25 13:30
GEN: AAO x3
HEENT: EOMI
LUNGS: RA. No audible wheeze
CV: SR with PACs on tele. Reg with ectopy, S1/S2, 1/6 murmur
EXT: Trace to +1 B/L LE edema.
NEURO: Gross non-focal
SKIN: Warm, dry and pink. No rash
Lab Results
01/04/25 11:00
01/04/25 11:00
Troponin I 0.045 ng/ml H* 01/04/25 11:00
Nbg-A-Mhgievevywl Pept 7240 pg/ml 01/04/25 11:00
Impression / Plan
-
PCP: Dr. Mayfield
Maintenance Worker: Dr. Banks
Impression:
Presented with SOB and palpitations 01/04/25
Acute on chronic HFpEF
Paroxysmal Afib w RVR
h/o atypical atrial flutter and atrial tachycardia
s/p PVI 03/28/15
s/p PVI and atrial flutter ablation 02/14/21
Previous Multaq therapy, stopped after 02/14/21 ablation
s/p PVI CTI ablation for right atrial flutter 12/28/24
Chronic Tikosyn therapy since 06/2021, stopped after ablation 12/28/24
Chronic Eliquis therapy
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
h/o NSTEMI and PEA arrest treated with CPR and Epi 06/14/22
CAD
LCx and proximal LAD stents, patent by cath 05/14/2022
NSTEMI and IFR positive long diffuse mid LAD 50-60% stenosis s/p SONDRA to LAD 06/06/22
cath with stable CAD, patent LAD/circ stents 06/14/22
HTN
Hyperlipidemia
Parkinson's disease
COPD
Elevated troponin
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
Echo 06/05/22: EF 75%, no WMA, aortic valve peak/mean 63/35 mmHg and FANY 1.0 cm sq, mild aortic regurgitation, mild MR
Echo 08/17/2022: EF 65 to 70%, stage II diastolic dysfunction, severe biatrial dilation, moderate MR, MAC, status post TAVR with mean gradient 6 mmHg trace AI, moderate TR, moderate to severe pulmonary hypertension
Echo 09/17/2022: EF 65 to 70%, moderate LVH, mild to moderate MR, well-seated TAVR with peak/mean gradients 19/8 mmHg, mild TR, estimated PAP 47 mmHg
Echo 10/04/2023: EF 55 to 60%, TAVR well-seated with peak/mean 15/8 mmHg
Echo 08/06/2024: EF 60 to 65%, mild MR, TAVR well-seated peak/mean 17/10 mmHg
Echo 01/04/2025: EF 60 to 65%, mild concentric LVH, mild MR, TAVR well-seated peak/mean 17/7 mmHg, no aortic regurgitation, mild TR, dilated IVC that does not collapse, small PFO/ASD following PVI 12/28/2024
Plan:
-Patient came to the ER today with increased SOB and is being admitted with acute HF and cardiology has been consulted. Patient had PVI and CTI ablations on 12/28/2024 for A-fib and atypical atrial flutter respectively. Patient stayed the night was
discharged to home the following day in [place]. Patient left on a Saturday and says by he began to feel more short of breath, but denies any orthopnea, chest pain or edema. Patient felt he had an episode of palpitations yesterday and again
today, but those were short-lived. Patient's Tikosyn was stopped following ablation. Patient came to the ER with ongoing SOB and is being admitted with acute HF, his proBNP is the highest it has ever been at 7240.
-ECG reviewed by me looks like SR with PACs, but telemetry in the room it is harder to discern P waves and patient may be having intermittent paroxysmal A-fib.
-Patient had PVI and CTI for A-fib/atypical atrial flutter last week. Tikosyn was stopped at that time and patient may be having recurrent paroxysms of atrial arrhythmia. Will consider restarting Tikosyn. QTc is 456 ms on ECG reviewed by me
01/04/2025. Previous dose of Tikosyn was 250 mcg every 12 hours.
-Outpatient dose of Toprol-XL 100 mg daily has been continued
-Outpatient dose of Eliquis 5 mg BID (age 89, Cre 0.8, wt 81.6 kg) has been continued
-ENT evaluation suggests ecchymosis of the right soft palate and tonsil that was presumably from intubation during procedure last week, but no evidence of laryngeal injury and no airway obstruction so OAC should be continued
-Patient is also chronically on Plavix for history of carotid disease and CAD
-proBNP is 7240 which is his highest level on record. Agree with the assessment of acute on chronic HFpEF. Agree with attempts at diuresis, patient has already had increased urine output following Lasix 40 mg IV x 1 in the ER. Patient was not
taking a loop diuretic prior to admission.
-EF preserved on echo today, report reviewed and summarized above by me.
-Previously placed TAVR is well-seated with peak/mean 17/7 mmHg
-Toprol-XL as noted above
-Could consider addition of SGLT2 inhibitor given HFpEF
-Would also considering adding aldosterone antagonist. Cre is stable and no history of hyperkalemia
-It does not appear the patient received excessive IVF's at the time of his PVI and overnight admission. Patient and eat freely at home and do not necessarily follow any specific salt or fluid restriction. Generally the patient's volume
status is controlled without loop diuretic. We may need to do some tighter salt and fluid restriction at home and consider reinstituting daily diuretic.
-Elevated troponin is due to recent ablation
[2025-01-04] MEDS: ELIQUIS 5 MG PO (20:21)
[2025-01-04] MEDS: SINEMET 25-100 1 TABLET PO (20:21)
[2025-01-04] MEDS: LIPITOR 40 MG PO (21:07)
[2025-01-05 03:19] VITALS: BP 151/73
[2025-01-05 04:11] VITALS: BMI 31.9
[2025-01-05 05:48] LABS: Hematocrit 32.2 % (39.0-52.0); Hemoglobin 10.8 g/dL (13.0-18.0); Mean Corp Hgb Conc. 33.5 g/dL (33.0-37.0); Mean Corpuscular Volume 89.7 fL (80.0-94.0); Nucleated Red Blood Cells % 0 % (-); Platelet Count 208 10^3/uL (130-400); Red Cell Dist. Width 15.9 % (11.5-14.5)
[2025-01-05 06:00] VITALS: BMI 31.7
[2025-01-05 06:11] LABS: ALT (SGPT) 17 U/L (0-50); AST (SGOT) 26 U/L (17-59); Albumin 3.3 g/dl (3.5-5.0); Alkaline Phosphatase 66 U/L (38-126); Blood Urea Nitrogen 22 mg/dl (9-20); Calcium 8.3 mg/dl (8.4-10.2); Carbon Dioxide 29 mmol/L (22-30); Chloride 108 mmol/L (98-107); Estimated Creatinine Clearance 60 ml/min; Glucose 99 mg/dl (70-99); Potassium 3.5 mmol/L (3.5-5.1); Sodium 141 mmol/L (135-145); Total Protein 5.8 g/dl (6.3-8.2); eGFR > 60.00
[2025-01-05] MEDS: ATROVENT NEBULES 0.5 MG INH (07:14)
[2025-01-05] MEDS: PULMICORT 0.5 MG INH (07:14)
[2025-01-05] MEDS: PLAVIX 75 MG PO (08:04)
[2025-01-05] MEDS: SINEMET 25-100 1 TABLET PO ×2 (08:04→20:31)
[2025-01-05] MEDS: IMDUR (EXTENDED RELEASE) 60 MG PO (08:04)
[2025-01-05] MEDS: TOPROL XL 100 MG PO (08:04)
[2025-01-05] MEDS: LASIX 40 MG IV (08:06)
[2025-01-05] MEDS: ELIQUIS 5 MG PO ×2 (08:07→20:31)
[2025-01-05 08:10] VITALS: BP 170/90
[2025-01-05 11:10] VITALS: BP 116/76
--- NOTE | 2025-01-05 12:29 | W.PN.HOSP.TC ---
Today's Communication/Plan
-
cont iv diuresis
Assessment / Plan
Assessment / Plan
PE
GEN: AAO x3
HEENT: EOMI
LUNGS: RA. No audible wheeze
CV: SR with PACs on tele. Reg with ectopy, S1/S2, 1/6 murmur
EXT: Trace to +1 B/L LE edema.
NEURO: Gross non-focal
SKIN: Warm, dry and pink. No rash
#Acute on Chronic HFpEF
-I/O, daily weights
-Continue Lasix 40 mg daily
- Consult [facility] cardiology
- Educated on adequate diet, Na restriction
2D echo 01/04/2025: EF 60-65%, mild LVH, normal LVS, LVSF, no wall abnormalities, TAVR no aortic regurg seen, mild TR, PASP 65-70 mmHg
#Hoarse voice
�longstanding intermittent temporarily worsened by intubation last week
�Consulted ENT:
-muscle tension dysphonia
- no other laryngeal pathology present. He has some ecchymosis of the right soft palate and tonsil presumably from intubation compounded by Eliquis and Plavix, but there is no injury to his larynx.
- There is no upper airway obstruction present.
- ENT recommended outpatient speech therapy
#Nonischemic myocardial injury
-Due to Acute HFpEF
-Troponin 0.045 PLavix
#Paroxysmal symptomatic atrial fibrillation and Aflutter
post PVI 12/28/24
- Continue Eliquis 5 mg twice daily, metoprolol succinate 100 mg daily
- recent Tikosyn DC'd on 12/29/2024 post ablation
#CAD with history of PEA arrest/NSTEMI, SONDRA-OM2, SONDRA-proximal and mid LAD 2021
- Continue atorvastatin 40 mg at bedtime, Plavix 75 mg daily, metoprolol succinate 100 mg daily
- Continue Imdur 60 mg daily
#Aortic stenosis status post TAVR
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
#Lung cancer five years, resected
#Restrictive lung disease
#Parkinson's disease
- Continue carbidopa levodopa
#Pituitary adenoma status post resection
DVT prophylaxis
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
Anticipated Discharge: 24 - 48 hours
Subjective/Interval History
-
Date of Service: January 05, 2025
still dyspneic
Objective Data
-
Labs:
Laboratory Results
01/05/25
05:07
WBC 8.8
Hgb 10.8 L
Hct 32.2 L
Plt Count 208
Sodium 141
Potassium 3.5
Chloride 108 H
Carbon Dioxide 29
BUN 22 H
Creatinine 0.8
Glucose 99
Calcium 8.3 L
Total Bilirubin 4.6 H
AST 26
ALT 17
Alkaline Phosphatase 66
Vital Signs:
Vital Signs
Temp Pulse Resp BP Pulse Ox
97.9 F 56 28 116/76 97
01/05/25 11:10 01/05/25 11:10 01/05/25 11:10 01/05/25 11:10 01/05/25 11:10
I&O
01/04/25 01/05/25 01/06/25
06:59 06:59 06:59
Intake Total 120 / 120
Output Total 1745 / 1745
Balance -1625 / -1625
Review of Systems
-
History Source: Patient
All other systems: Not reviewed unless documented
Physical Exam
-
General: No Apparent Distress
HEENT: Normocephalic and Atraumatic
Respiratory: Negative Wheezes or Rales
Cardiac: Regular Rhythm and S1/S2
GI: Soft and Nontender
Neuro: AO x 3
Hematologic / Lymphatic: No Lymphadenopathy
Psych: Calm
Data Reviewed
-
Diagnostic Radiology: Report Reviewed by me
Labs: Labs Reviewed by me
[2025-01-05 15:00] VITALS: BP 138/67
--- NOTE | 2025-01-05 16:24 | W.PN.CARDCBS ---
Today's Communication / Plan
-
Additional furosemide 60 mg IV now
Consider spironolactone/Farxiga
Convert to oral furosemide in 24 to 48 hours
Impression / Plan
-
PCP: Dr. Mayfield
Project Manager Entertainment And Media: Dr. Banks
Impression:
Presented with SOB and palpitations 01/04/25
Acute on chronic HFpEF
Paroxysmal Afib w RVR
h/o atypical atrial flutter and atrial tachycardia
s/p PVI 03/28/15
s/p PVI and atrial flutter ablation 02/14/21
Previous Multaq therapy, stopped after 02/14/21 ablation
s/p PVI CTI ablation for right atrial flutter 12/28/24
Chronic Tikosyn therapy since 06/2021, stopped after ablation 12/28/24
Chronic Eliquis therapy
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
h/o NSTEMI and PEA arrest treated with CPR and Epi 06/14/22
CAD
LCx and proximal LAD stents, patent by cath 05/14/2022
NSTEMI and IFR positive long diffuse mid LAD 50-60% stenosis s/p SONDRA to LAD 06/06/22
cath with stable CAD, patent LAD/circ stents 06/14/22
HTN
Hyperlipidemia
Parkinson's disease
COPD
Elevated troponin
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
Echo 06/05/22: EF 75%, no WMA, aortic valve peak/mean 63/35 mmHg and FANY 1.0 cm sq, mild aortic regurgitation, mild MR
Echo 08/17/2022: EF 65 to 70%, stage II diastolic dysfunction, severe biatrial dilation, moderate MR, MAC, status post TAVR with mean gradient 6 mmHg trace AI, moderate TR, moderate to severe pulmonary hypertension
Echo 09/17/2022: EF 65 to 70%, moderate LVH, mild to moderate MR, well-seated TAVR with peak/mean gradients 19/8 mmHg, mild TR, estimated PAP 47 mmHg
Echo 10/04/2023: EF 55 to 60%, TAVR well-seated with peak/mean 15/8 mmHg
Echo 08/06/2024: EF 60 to 65%, mild MR, TAVR well-seated peak/mean 17/10 mmHg
Echo 01/04/2025: EF 60 to 65%, mild concentric LVH, mild MR, TAVR well-seated peak/mean 17/7 mmHg, no aortic regurgitation, mild TR, dilated IVC that does not collapse, small PFO/ASD following PVI 12/28/2024
Plan:
From the standpoint of acute HFpEF, he is improved but still volume overloaded. Will give additional dose of furosemide now. Supplement potassium.
We could consider spironolactone and SGLT2 antagonist. Will discuss with primary semaphore operator.
Patient will require another day or so of IV diuresis, will assess day by day.
Appreciate input of Dr. Lopez.
Progress Note - Project Manager Entertainment And Media
Subjective
Date of Service: January 05, 2025:
89-year-old man who underwent a PVI and flutter ablation on December 28, then readmitted with increasing dyspnea and dysphagia, and found to have acute exacerbation of chronic HFpEF.
PMH/PSH: TAVR 2022, LAD stent 2021, remote LAD and circumflex stent PEA arrest 2022, COPD, paroxysmal atrial fibrillation and atypical flutter previously on dofetilide, hypertension, hyperlipidemia, PVI in 2014, 2020 and again in 2024, Parkinson's
Current meds: Apixaban 5 mg p.o. twice daily, atorvastatin 40 mg at bedtime, Pulmicort, Sinemet 1 tablet twice daily, clopidogrel 75 mg a day, Atrovent, isosorbide mononitrate, metoprolol 100 mg a day, furosemide 40 mg IV daily, patient not on
furosemide as outpatient
States he is improved but still short of breath
116/76, pulse 56, respiratory rate 28, afebrile, sats 97%, intake and output -1.3 L, weight is 81.2 kg, similar to yesterday, weight was 82.7 kg at discharge 12/29, still with dyspnea, lungs are relatively clear but diminished, regular rate and
rhythm, no obvious murmurs JVD difficult to assess, dyspneic just moving around in bed and walking to bathroom
Hemoglobin 10.8 white count 8.8, platelets 208, BUN/creatinine 22 and 0.8, potassium 3.5, proBNP was 7240
Echo yesterday: EF 60-65%, biatrial enlargement, mild MR, Cloud TIEN 26 transcatheter aortic valve, peak/mean gradients 17/7, pulmonary artery systolic pressure is 65-70 mmHg, small PFO
Objective
Labs:
01/05/25 05:07
01/05/25 05:07
Labs
Hgb 10.8 g/dL (13.0-18.0) L 01/05/25 05:07
Hct 32.2 % (39.0-52.0) L 01/05/25 05:07
Plt Count 208 10^3/uL (130-400) 01/05/25 05:07
Sodium 141 mmol/L (135-145) 01/05/25 05:07
Potassium 3.5 mmol/L (3.5-5.1) 01/05/25 05:07
BUN 22 mg/dl (9-20) H 01/05/25 05:07
Creatinine 0.8 mg/dL (0.7-1.3) 01/05/25 05:07
Glucose 99 mg/dl (70-99) 01/05/25 05:07
Troponins
01/04/25
11:00
Troponin I 0.045 H*
Vital Signs and I&O:
Vital Signs
Temp Pulse Resp BP Pulse Ox
36.6 C 73 20 138/67 95
01/05/25 15:00 01/05/25 15:00 01/05/25 15:00 01/05/25 15:00 01/05/25 15:00
Vital Signs
Temp Pulse Resp BP Pulse Ox
36.6 C 73 20 138/67 95
01/05/25 15:00 01/05/25 15:00 01/05/25 15:00 01/05/25 15:00 01/05/25 15:00
Intake & Output
01/03/25 01/04/25 01/05/25 01/06/25
07:59 07:59 07:59 07:59
Intake Total 120 / 120
Output Total 1745 / 1745
Balance -1625 / -1625
Physical Exam
Physical Exam
See above
[2025-01-05] MEDS: KCL 40 MEQ PO (16:38)
[2025-01-05] MEDS: LASIX 60 MG IV (16:38)
--- NOTE | 2025-01-05 16:47 | CM ---
Alert awake oriented patient who lives with his Olivia lives in a senior independent living. He is independent in driving and in all activities of daily living.He was offered VN he declined need.He uses walker and cane.
[place] VN hx / No SNF history
Pharmacy [facility]
PCP DR Mayfield
PLAN Home Declined VN
[2025-01-05 19:00] VITALS: BP 161/75
[2025-01-05] MEDS: LIPITOR 40 MG PO (21:35)
[2025-01-05] MEDS: KCL 20 MEQ PO (21:35)
[2025-01-05 23:00] VITALS: BP 121/60
[2025-01-06 03:00] VITALS: BP 156/87
[2025-01-06 03:44] VITALS: BMI 30.1
[2025-01-06 05:57] LABS: Hematocrit 37.4 % (39.0-52.0); Hemoglobin 12.6 g/dL (13.0-18.0); Mean Corp Hgb Conc. 33.7 g/dL (33.0-37.0); Mean Corpuscular Volume 89.5 fL (80.0-94.0); Nucleated Red Blood Cells % 0 % (-); Platelet Count 236 10^3/uL (130-400); Red Cell Dist. Width 16.0 % (11.5-14.5)
[2025-01-06 06:06] LABS: ALT (SGPT) 12 U/L (0-50); AST (SGOT) 22 U/L (17-59); Albumin 3.8 g/dl (3.5-5.0); Alkaline Phosphatase 78 U/L (38-126); Blood Urea Nitrogen 27 mg/dl (9-20); Calcium 8.8 mg/dl (8.4-10.2); Carbon Dioxide 29 mmol/L (22-30); Chloride 105 mmol/L (98-107); Estimated Creatinine Clearance 59 ml/min; Glucose 103 mg/dl (70-99); Magnesium 1.9 mg/dl (1.6-2.3); Potassium 3.7 mmol/L (3.5-5.1); Sodium 140 mmol/L (135-145); Total Protein 6.3 g/dl (6.3-8.2); eGFR > 60.00
[2025-01-06] MEDS: PULMICORT 0.5 MG INH (07:18)
[2025-01-06] MEDS: ATROVENT NEBULES 0.5 MG INH (07:18)
[2025-01-06 07:45] VITALS: BP 165/66
[2025-01-06] MEDS: SINEMET 25-100 1 TABLET PO ×2 (08:38→22:31)
[2025-01-06] MEDS: IMDUR (EXTENDED RELEASE) 60 MG PO (08:38)
[2025-01-06] MEDS: PLAVIX 75 MG PO (08:39)
[2025-01-06] MEDS: TOPROL XL 100 MG PO (08:39)
[2025-01-06] MEDS: LASIX 40 MG IV (08:39)
[2025-01-06] MEDS: ELIQUIS 5 MG PO ×2 (08:39→22:25)
[2025-01-06 11:30] VITALS: BP 149/72
--- NOTE | 2025-01-06 13:35 | W.PN.HOSP.TC ---
Today's Communication/Plan
-
Anticipate switching over to p.o. Lasix tomorrow
Assessment / Plan
Assessment / Plan
PE
GEN: AAO x3
HEENT: EOMI
LUNGS: RA. No audible wheeze
CV: SR with PACs on tele. Reg with ectopy, S1/S2, 1/6 murmur
EXT: Trace to +1 B/L LE edema.
NEURO: Gross non-focal
SKIN: Warm, dry and pink. No rash
#Acute on Chronic HFpEF
-I/O, daily weights
-Continue Lasix 40 mg daily, transition to p.o. tomorrow
- Consult [facility]ology
- Educated on adequate diet, Na restriction
2D echo 01/04/2025: EF 60-65%, mild LVH, normal LVS, LVSF, no wall abnormalities, TAVR no aortic regurg seen, mild TR, PASP 65-70 mmHg
#Hoarse voice
�longstanding intermittent temporarily worsened by intubation last week
�Consulted ENT:
-muscle tension dysphonia
- no other laryngeal pathology present. He has some ecchymosis of the right soft palate and tonsil presumably from intubation compounded by Eliquis and Plavix, but there is no injury to his larynx.
- There is no upper airway obstruction present.
- ENT recommended outpatient speech therapy
#Nonischemic myocardial injury
-Due to Acute HFpEF
-Troponin 0.045 PLavix
#Paroxysmal symptomatic atrial fibrillation and Aflutter
post PVI 12/28/24
- Continue Eliquis 5 mg twice daily, metoprolol succinate 100 mg daily
- recent Tikosyn DC'd on 12/29/2024 post ablation
#CAD with history of PEA arrest/NSTEMI, SONDRA-OM2, SONDRA-proximal and mid LAD 2021
- Continue atorvastatin 40 mg at bedtime, Plavix 75 mg daily, metoprolol succinate 100 mg daily
- Continue Imdur 60 mg daily
#Aortic stenosis status post TAVR
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
#Lung cancer five years, resected
#Restrictive lung disease
#Parkinson's disease
- Continue carbidopa levodopa
#Pituitary adenoma status post resection
DVT prophylaxis
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
More than 30 minutes spent in discharge including
Final examination of the patient
Summarizing hospital stay
Instructions for continuing care to all relevant caregivers
Preparation of discharge records, prescriptions, and referral forms
Total time spent (in minutes): 36
Anticipated Discharge: Today
Subjective/Interval History
-
Date of Service: January 06, 2025
Respiratory status has improved
Objective Data
-
Labs:
Laboratory Results
01/06/25
05:15
WBC 10.2
Hgb 12.6 L
Hct 37.4 L
Plt Count 236
Sodium 140
Potassium 3.7
Chloride 105
Carbon Dioxide 29
BUN 27 H
Creatinine 0.8
Glucose 103 H
Calcium 8.8
Total Bilirubin 4.8 H
AST 22
ALT 12
Alkaline Phosphatase 78
Vital Signs:
Vital Signs
Temp Pulse Resp BP Pulse Ox
97.9 F 63 16 149/72 93
01/06/25 11:30 01/06/25 11:30 01/06/25 11:30 01/06/25 11:30 01/06/25 11:30
I&O
01/05/25 01/06/25 01/07/25
06:59 06:59 06:59
Intake Total 120 / 120 600 / 600
Output Total 1745 / 1745 3190 / 3190
Balance -1625 / -1625 -2590 / -2590
Review of Systems
-
History Source: Patient
All other systems: Not reviewed unless documented
Physical Exam
-
General: No Apparent Distress
HEENT: Normocephalic and Atraumatic
Respiratory: Negative Wheezes or Rales
Cardiac: Regular Rhythm and S1/S2
GI: Soft and Nontender
Neuro: AO x 3
Hematologic / Lymphatic: No Lymphadenopathy
Psych: Calm
Data Reviewed
-
Diagnostic Radiology: Report Reviewed by me
Labs: Labs Reviewed by me
--- NOTE | 2025-01-06 14:13 | W.PN.CARDCBS ---
Addendum entered and electronically signed by Venkata Moss MD 01/06/25 17:08:
I saw and examined the patient.
The Cooking Chef's note was reviewed and I agree with the note.
Comment:
GEN: No distress, awake, Ox3
HEENT: supple, anicteric, mmm
LUNGS: CTA, no wheezes/rales
CV: Reg, S1/S2, 1/6 syst LSB, no gallop
ABD: soft, BS+, NT/ND
EXT: No edema
NEURO: Gross non-focal
SKIN: No rash
Plan:
Has lost about 10 pounds and is doing well. Will switch to Lasix 20 mg p.o. daily starting tomorrow.
Continue Toprol and Eliquis. He remains in sinus rhythm. Now off Tikosyn.
Will discuss with Dr. Banks as outpatient regarding SLG 2 inhibitor
Okay for discharge from cardiology standpoint
Original Note:
Today's Communication / Plan
-
Changed to Lasix 20 mg PO daily starting tomorrow
Impression / Plan
-
PCP: Dr. Mayfield
Ophthalmic Medical Assistant: Dr. Banks
Impression:
Presented with SOB and palpitations 01/04/25
Acute on chronic HFpEF
Paroxysmal Afib w RVR
h/o atypical atrial flutter and atrial tachycardia
s/p PVI 03/28/15
s/p PVI and atrial flutter ablation 02/14/21
Previous Multaq therapy, stopped after 02/14/21 ablation
s/p PVI CTI ablation for right atrial flutter 12/28/24
Chronic Tikosyn therapy since 06/2021, stopped after ablation 12/28/24
Chronic Eliquis therapy
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
h/o NSTEMI and PEA arrest treated with CPR and Epi 06/14/22
CAD
LCx and proximal LAD stents, patent by cath 05/14/2022
NSTEMI and IFR positive long diffuse mid LAD 50-60% stenosis s/p SONDRA to LAD 06/06/22
cath with stable CAD, patent LAD/circ stents 06/14/22
HTN
Hyperlipidemia
Parkinson's disease
COPD
Elevated troponin
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
Echo 06/05/22: EF 75%, no WMA, aortic valve peak/mean 63/35 mmHg and FANY 1.0 cm sq, mild aortic regurgitation, mild MR
Echo 08/17/2022: EF 65 to 70%, stage II diastolic dysfunction, severe biatrial dilation, moderate MR, MAC, status post TAVR with mean gradient 6 mmHg trace AI, moderate TR, moderate to severe pulmonary hypertension
Echo 09/17/2022: EF 65 to 70%, moderate LVH, mild to moderate MR, well-seated TAVR with peak/mean gradients 19/8 mmHg, mild TR, estimated PAP 47 mmHg
Echo 10/04/2023: EF 55 to 60%, TAVR well-seated with peak/mean 15/8 mmHg
Echo 08/06/2024: EF 60 to 65%, mild MR, TAVR well-seated peak/mean 17/10 mmHg
Echo 01/04/2025: EF 60 to 65%, mild concentric LVH, mild MR, TAVR well-seated peak/mean 17/7 mmHg, no aortic regurgitation, mild TR, dilated IVC that does not collapse, small PFO/ASD following PVI 12/28/2024
Plan:
-Weight is down 10 lbs overnight according to standing scale weights recorded in [employer]. Patient is below any previously recorded dry weight. Patient weighs 169 lbs on 01/06/25.
-Patient has diuresed with Lasix 40 mg IV daily. Patient was not taking a diuretic prior to admission. Start Lasix 20 mg PO daily 01/07/2025 and this should be his discharge dose as well, orders placed by me.
-EF preserved on echo and previously placed TAVR is well-seated with peak/mean 17/7 mmHg
-Outpatient dose of Toprol-XL 100 mg daily has been continued
-Could consider addition of SGLT2 inhibitor given HFpEF, he will follow-up with his primary clinical resource manager as an outpatient regarding this
-Would also considering adding aldosterone antagonist. Cre is stable and no history of hyperkalemia and again he will follow-up with his primary clinical resource manager as an outpatient regarding this
-Elevated troponin is due to recent ablation
-Patient had PVI and CTI for A-fib/atypical atrial flutter last week. Tikosyn was stopped at that time, of note previous dose of Tikosyn was 250 mcg every 12 hours.
-Toprol-XL as noted above
-Outpatient dose of Eliquis 5 mg BID (age 89, Cre 0.8, wt 81.6 kg) has been continued
-ENT evaluation suggested ecchymosis of the right soft palate and tonsil that was presumably from intubation during procedure last week, but no evidence of laryngeal injury and no airway obstruction so OAC should be continued
-Patient is also chronically on Plavix for history of carotid disease and CAD
HPI: Patient came to the ER today with increased SOB and is being admitted with acute HF and cardiology has been consulted. Patient had PVI and CTI ablations on 12/28/2024 for A-fib and atypical atrial flutter respectively. Patient stayed the night
was discharged to home the following day in [place]. Patient left on a Saturday and says by he began to feel more short of breath, but denies any orthopnea, chest pain or edema. Patient felt he had an episode of palpitations yesterday and again
today, but those were short-lived. Patient's Tikosyn was stopped following ablation. Patient came to the ER with ongoing SOB and is being admitted with acute HF, his proBNP is the highest it has ever been at 7240.
Progress Note - Ophthalmic Medical Assistant
Subjective
Date of Service: January 06, 2025
He feels fine, no SOB
Objective
Labs:
01/06/25 05:15
01/06/25 05:15
Labs
Hgb 12.6 g/dL (13.0-18.0) L 01/06/25 05:15
Hct 37.4 % (39.0-52.0) L 01/06/25 05:15
Plt Count 236 10^3/uL (130-400) 01/06/25 05:15
Sodium 140 mmol/L (135-145) 01/06/25 05:15
Potassium 3.7 mmol/L (3.5-5.1) 01/06/25 05:15
BUN 27 mg/dl (9-20) H 01/06/25 05:15
Creatinine 0.8 mg/dL (0.7-1.3) 01/06/25 05:15
Glucose 103 mg/dl (70-99) H 01/06/25 05:15
Troponins
01/04/25
11:00
Troponin I 0.045 H*
Vital Signs and I&O:
Vital Signs
Temp Pulse Resp BP Pulse Ox
97.9 F 63 16 149/72 93
01/06/25 11:30 01/06/25 11:30 01/06/25 11:30 01/06/25 11:30 01/06/25 11:30
Vital Signs
Temp Pulse Resp BP Pulse Ox
97.9 F 63 16 149/72 93
01/06/25 11:30 01/06/25 11:30 01/06/25 11:30 01/06/25 11:30 01/06/25 11:30
Intake & Output
01/04/25 01/05/25 01/06/25 01/07/25
06:59 06:59 06:59 06:59
Intake Total 120 / 120 600 / 600
Output Total 1745 / 1745 3190 / 3190
Balance -1625 / -1625 -2590 / -2590
Physical Exam
Physical Exam
GEN: AAO x3
LUNGS: RA. No audible wheeze
CV: SR with PACs on tele.
[2025-01-06 15:30] VITALS: BP 127/60
[2025-01-06 19:38] VITALS: BP 157/68
[2025-01-06] MEDS: LIPITOR 40 MG PO (22:26)
[2025-01-06 23:22] VITALS: BP 144/69
[2025-01-07 03:34] VITALS: BP 133/53
[2025-01-07 05:51] LABS: Hematocrit 37.4 % (39.0-52.0); Hemoglobin 12.5 g/dL (13.0-18.0); Mean Corp Hgb Conc. 33.4 g/dL (33.0-37.0); Mean Corpuscular Volume 88.2 fL (80.0-94.0); Nucleated Red Blood Cells % 0 % (-); Platelet Count 248 10^3/uL (130-400); Red Cell Dist. Width 15.9 % (11.5-14.5)
[2025-01-07 06:00] VITALS: BMI 29.7
[2025-01-07] MEDS: PULMICORT 0.5 MG INH ×2 (06:14)
[2025-01-07] MEDS: ATROVENT NEBULES 0.5 MG INH (06:15)
[2025-01-07 06:16] LABS: ALT (SGPT) < 10 U/L (0-50); AST (SGOT) 19 U/L (17-59); Albumin 3.6 g/dl (3.5-5.0); Alkaline Phosphatase 79 U/L (38-126); Blood Urea Nitrogen 32 mg/dl (9-20); Calcium 8.6 mg/dl (8.4-10.2); Carbon Dioxide 29 mmol/L (22-30); Chloride 105 mmol/L (98-107); Estimated Creatinine Clearance 59 ml/min; Glucose 104 mg/dl (70-99); Potassium 3.4 mmol/L (3.5-5.1); Sodium 140 mmol/L (135-145); Total Protein 6.1 g/dl (6.3-8.2); eGFR > 60.00
[2025-01-07 07:43] VITALS: BP 155/62
[2025-01-07] MEDS: TOPROL XL PO (08:14)
[2025-01-07] MEDS: LASIX 20 MG PO (08:17)
[2025-01-07] MEDS: ELIQUIS 5 MG PO (08:17)
[2025-01-07] MEDS: IMDUR (EXTENDED RELEASE) 60 MG PO (08:18)
[2025-01-07] MEDS: SINEMET 25-100 1 TABLET PO (08:18)
[2025-01-07] MEDS: PLAVIX 75 MG PO (08:18)
[2025-01-07] MEDS: KCL ELIXIR 40 MEQ PO (09:18)
--- NOTE | 2025-01-07 11:08 | W.PN.CARDCBS ---
Today's Communication / Plan
-
D/C to home
Down 12 lbs this admission, new dry weight is 167 lbs
New to Lasix 20 mg PO daily
Impression / Plan
-
PCP: Dr. Mayfield
Glass Inspector: Dr. Banks
Impression:
Presented with SOB and palpitations 01/04/25
Acute on chronic HFpEF
Paroxysmal Afib w RVR
h/o atypical atrial flutter and atrial tachycardia
s/p PVI 03/28/15
s/p PVI and atrial flutter ablation 02/14/21
Previous Multaq therapy, stopped after 02/14/21 ablation
s/p PVI CTI ablation for right atrial flutter 12/28/24
Chronic Tikosyn therapy since 06/2021, stopped after ablation 12/28/24
Chronic Eliquis therapy
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
h/o NSTEMI and PEA arrest treated with CPR and Epi 06/14/22
CAD
LCx and proximal LAD stents, patent by cath 05/14/2022
NSTEMI and IFR positive long diffuse mid LAD 50-60% stenosis s/p SONDRA to LAD 06/06/22
cath with stable CAD, patent LAD/circ stents 06/14/22
HTN
Hyperlipidemia
Parkinson's disease
COPD
Elevated troponin
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
Echo 06/05/2022: EF 75%, no WMA, aortic valve peak/mean 63/35 mmHg and FANY 1.0 cm sq, mild aortic regurgitation, mild MR
Echo 08/17/2022: EF 65 to 70%, stage II diastolic dysfunction, severe biatrial dilation, moderate MR, MAC, status post TAVR with mean gradient 6 mmHg trace AI, moderate TR, moderate to severe pulmonary hypertension
Echo 09/17/2022: EF 65 to 70%, moderate LVH, mild to moderate MR, well-seated TAVR with peak/mean gradients 19/8 mmHg, mild TR, estimated PAP 47 mmHg
Echo 10/04/2023: EF 55 to 60%, TAVR well-seated with peak/mean 15/8 mmHg
Echo 08/06/2024: EF 60 to 65%, mild MR, TAVR well-seated peak/mean 17/10 mmHg
Echo 01/04/2025: EF 60 to 65%, mild concentric LVH, mild MR, TAVR well-seated peak/mean 17/7 mmHg, no aortic regurgitation, mild TR, dilated IVC that does not collapse, small PFO/ASD following PVI 12/28/2024
Plan:
-Weight is down another 2 lbs overnight according to standing scale weights recorded in [employer]. Overall diuresed 12 lbs this admission. Patient is below any previously recorded dry weight. Patient weighs 167 lbs on 01/07/25.
-Patient has diuresed with Lasix 40 mg IV daily. Patient was not taking a diuretic prior to admission. New to Lasix 20 mg PO daily at discharge
-EF preserved on echo and previously placed TAVR is well-seated with peak/mean 17/7 mmHg
-Outpatient dose of Toprol-XL 100 mg daily has been continued
-Patient will decide on adding SGLT2 inhibitor and/or spironolactone after he sees his primary swing ride operator in the office.
-Elevated troponin is due to recent ablation
-Patient had PVI and CTI for A-fib/atypical atrial flutter last week. Tikosyn was stopped at that time, of note previous dose of Tikosyn was 250 mcg every 12 hours.
-Toprol-XL as noted above
-Outpatient dose of Eliquis 5 mg BID (age 89, Cre 0.8, wt 81.6 kg) has been continued
-ENT evaluation suggested ecchymosis of the right soft palate and tonsil that was presumably from intubation during procedure last week, but no evidence of laryngeal injury and no airway obstruction so OAC should be continued
-Patient is also chronically on Plavix for history of carotid disease and CAD
-Cardiology f/u arranged
HPI: Patient came to the ER today with increased SOB and is being admitted with acute HF and cardiology has been consulted. Patient had PVI and CTI ablations on 12/28/2024 for A-fib and atypical atrial flutter respectively. Patient stayed the night
was discharged to home the following day in [place]. Patient left on a Saturday and says by he began to feel more short of breath, but denies any orthopnea, chest pain or edema. Patient felt he had an episode of palpitations yesterday and again
today, but those were short-lived. Patient's Tikosyn was stopped following ablation. Patient came to the ER with ongoing SOB and is being admitted with acute HF, his proBNP is the highest it has ever been at 7240.
Progress Note - Glass Inspector
Subjective
Date of Service: January 07, 2025
He feels well and wants to go home
Objective
Labs:
01/07/25 05:07
01/07/25 05:07
Labs
Hgb 12.5 g/dL (13.0-18.0) L 01/07/25 05:07
Hct 37.4 % (39.0-52.0) L 01/07/25 05:07
Plt Count 248 10^3/uL (130-400) 01/07/25 05:07
Sodium 140 mmol/L (135-145) 01/07/25 05:07
Potassium 3.4 mmol/L (3.5-5.1) L 01/07/25 05:07
BUN 32 mg/dl (9-20) H 01/07/25 05:07
Creatinine 0.8 mg/dL (0.7-1.3) 01/07/25 05:07
Glucose 104 mg/dl (70-99) H 01/07/25 05:07
Troponins
01/04/25
11:00
Troponin I 0.045 H*
Vital Signs and I&O:
Vital Signs
Temp Pulse Resp BP Pulse Ox
97.8 F 54 18 155/62 95
01/07/25 07:43 01/07/25 08:14 01/07/25 07:43 01/07/25 07:43 01/07/25 07:43
Vital Signs
Temp Pulse Resp BP Pulse Ox
97.8 F 54 18 155/62 95
01/07/25 07:43 01/07/25 08:14 01/07/25 07:43 01/07/25 07:43 01/07/25 07:43
Intake & Output
01/05/25 01/06/25 01/07/25 01/08/25
06:59 06:59 06:59 06:59
Intake Total 120 / 120 600 / 600 720 / 720
Output Total 1745 / 1745 3190 / 3190 1350 / 1350
Balance -1625 / -1625 -2590 / -2590 -630 / -630
Physical Exam
Physical Exam
GEN: AAO x3
LUNGS: RA. No audible wheeze
CV: SR on tele.
--- NOTE | 2025-01-07 11:29 | W.PN.HOSP.TC ---
Addendum entered and electronically signed by Rayray Bruce MD 01/08/25 17:42:
[id number]
Original Note:
Today's Communication/Plan
-
Furosemide 20mg daily
SGLT2i discussion outpatient
F/u BMP in 1 week with pcp/cards
Speech therapy outpatient
F/u PCP, Cards outpt
Assessment / Plan
Assessment / Plan
PE
GEN: AAO x3
HEENT: EOMI
LUNGS: RA. No audible wheeze
CV: SR with PACs on tele. Reg with ectopy, S1/S2, 1/6 murmur
EXT: Trace to +1 B/L LE edema.
NEURO: Gross non-focal
SKIN: Warm, dry and pink. No rash
#Acute on Chronic HFpEF
-I/O, daily weights
-Continue Lasix 40 mg daily, transition to p.o 20mg lasix today
- Consult [facility] cardiology
- Educated on adequate diet, Na restriction
-SGLT2i outpatient discussion
2D echo 01/04/2025: EF 60-65%, mild LVH, normal LVS, LVSF, no wall abnormalities, TAVR no aortic regurg seen, mild TR, PASP 65-70 mmHg; small PFO - no significant change
#Hoarse voice
�longstanding intermittent temporarily worsened by intubation last week
�Consulted ENT:
-muscle tension dysphonia
- no other laryngeal pathology present. He has some ecchymosis of the right soft palate and tonsil presumably from intubation compounded by Eliquis and Plavix, but there is no injury to his larynx.
- There is no upper airway obstruction present.
- ENT recommended outpatient speech therapy
#Nonischemic myocardial injury
-Due to Acute HFpEF
-Troponin 0.045 PLavix
#Paroxysmal symptomatic atrial fibrillation and Aflutter
post PVI 12/28/24
- Continue Eliquis 5 mg twice daily, metoprolol succinate 100 mg daily
- recent Tikosyn DC'd on 12/29/2024 post ablation
#CAD with history of PEA arrest/NSTEMI, SONDRA-OM2, SONDRA-proximal and mid LAD 2021
- Continue atorvastatin 40 mg at bedtime, Plavix 75 mg daily, metoprolol succinate 100 mg daily
- Continue Imdur 60 mg daily
#Aortic stenosis status post TAVR
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
#Lung cancer five years, resected
#Restrictive lung disease
#Parkinson's disease
- Continue carbidopa levodopa
#Pituitary adenoma status post resection
DVT prophylaxis
Continue [employer] Eliquis
More than 30 minutes spent in discharge including
Final examination of the patient
Summarizing hospital stay
Instructions for continuing care to all relevant caregivers
Preparation of discharge records, prescriptions, and referral forms
Total time spent (in minutes): 36
Anticipated Discharge: Today
Subjective/Interval History
-
Date of Service: January 07, 2025
dyspnea resolved
Objective Data
-
Labs:
Laboratory Results
01/07/25
05:07
WBC 9.9
Hgb 12.5 L
Hct 37.4 L
Plt Count 248
Sodium 140
Potassium 3.4 L
Chloride 105
Carbon Dioxide 29
BUN 32 H
Creatinine 0.8
Glucose 104 H
Calcium 8.6
Total Bilirubin 4.1 H
AST 19
ALT < 10
Alkaline Phosphatase 79
Vital Signs:
Vital Signs
Temp Pulse Resp BP Pulse Ox
97.8 F 54 18 155/62 95
01/07/25 07:43 01/07/25 08:14 01/07/25 07:43 01/07/25 07:43 01/07/25 07:43
I&O
01/06/25 01/07/25 01/08/25
06:59 06:59 06:59
Intake Total 600 / 600 720 / 720
Output Total 3190 / 3190 1350 / 1350
Balance -2590 / -2590 -630 / -630
Review of Systems
-
History Source: Patient
All other systems: Not reviewed unless documented
Data Reviewed
-
Diagnostic Radiology: Report Reviewed by me
Medical Tests (Nuc Med, Echo etc): Report Reviewed by me
Labs: Labs Reviewed by me
--- NOTE | 2025-01-07 11:35 | W.DS.TRANS ---
DC Summary - Principal Bioinformatics Specialist
-
Discharge Instructions:
Sleep Apnea Risk Intermediate
Discharge Diagnosis/Procedures Acute on chronic HFpEF
Diet Low Cholesterol,Low Fat,2 Gram Sodium,Restrict
fluids to 64 oz
Blood Work BMP and CBC within [address]
Specialty Instructions Weigh Daily
Instructions:
Stand-Alone Forms:
Changes to Home Medications: Yes
Discharge Medications:
DC Medications w/original date entered in [facility]
atorvastatin 40 mg tablet 40 mg PO HS High cholesterol 02/10/21
clopidogrel 75 mg tablet 75 mg PO DAILY heart disease/condition #30 tabs 01/24/22
apixaban 5 mg tablet (Eliquis) 5 mg PO BID Blood clot prevention/tx #0 tabs 01/30/22
carbidopa 25 mg-levodopa 100 mg tablet 1 tab PO BID Parkinson's disease 06/14/22
ipratropium bromide 17 mcg/actuation HFA aerosol inhaler 1 puff inhalation R DAILY Lung/Breathing Issues 07/27/24
isosorbide mononitrate 60 mg tablet,extended release 24 hr 60 mg PO DAILY Heart Disease/Condition 07/27/24
budesonide 0.5 mg/2 mL suspension for nebulization 0.5 mg inhalation R DAILY Lung/Breathing Issues 08/05/24
metoprolol succinate 100 mg tablet,extended release 24 hr 100 mg PO DAILY Heart Disease/BP 12/16/24
furosemide 20 mg tablet 20 mg PO DAILY 30 days #30 tabs 01/07/25
Home Medication Changes
furosemide 20 mg tablet 20 mg PO DAILY 30 days #30 tabs 01/07/25
Pending Results: No
--- NOTE | 2025-01-07 11:47 | CM ---
CM met with pt who is cleared for discharge to home today. He denies any needs at this time.
Plan: Discharge to home today with no identified needs.
[2025-01-07 11:55] VITALS: BP 142/71
== END 2025-01-07 13:06 | disposition home or self-care (01) | DRG 291 ==
LOC: 3 WEST ACU 14:08
PROVIDERS: Clinical Nurse Specialist Family Health; Physician Assistant; ADMITTING PHYSICIAN Hospitalist; ATTENDING PHYSICIAN Internal Medicine; CONSULT PHYSICIAN Nuclear Medicine Nuclear Cardiology; CONSULT PHYSICIAN Otolaryngology; EMERGENCY PHYSICIAN Emergency Medicine; FAMILY PHYSICIAN Internal Medicine
PROC: 0CJS8ZZ Inspection of Larynx, Via Natural or Artificial Opening Endoscopic (ICD-10-PCS; 2025-01-04)
DX: I11.0 Hypertensive heart disease with heart failure (principal); I50.33 Acute on chronic diastolic (congestive) heart failure; I48.4 Atypical atrial flutter; I5A Non-ischemic myocardial injury (non-traumatic); I48.0 Paroxysmal atrial fibrillation; I25.10 Atherosclerotic heart disease of native coronary artery without angina pectoris; G20.A1 Parkinson's disease without dyskinesia, without mention of fluctuations; E78.00 Pure hypercholesterolemia, unspecified; J98.4 Other disorders of lung; I65.21 Occlusion and stenosis of right carotid artery; J44.9 Chronic obstructive pulmonary disease, unspecified; R49.0 Dysphonia; I25.2 Old myocardial infarction; Z11.52 Encounter for screening for COVID-19; Z79.01 Long term (current) use of anticoagulants; Z79.02 Long term (current) use of antithrombotics/antiplatelets; Z79.51 Long term (current) use of inhaled steroids; Z79.899 Other long term (current) drug therapy; Z85.118 Personal history of other malignant neoplasm of bronchus and lung; Z86.74 Personal history of sudden cardiac arrest; Z87.891 Personal history of nicotine dependence; Z95.3 Presence of xenogenic heart valve; Z95.5 Presence of coronary angioplasty implant and graft
CPT/HCPCS: 71045; 80053; 83735; 83880; 84484; 85025; 86850; 86900; 86901; 87811; 93005; 93306; 94640; 96374; 99285

== ENCOUNTER 2025-01-29 07:08 | Day surgery (SDC) | payer MEDICARE, BC, SELFPAY ==
[2025-01-29] MEDS: ELIQUIS 5 MG PO (08:04)
[2025-01-29 08:10] VITALS: BMI 30.5
--- NOTE | 2025-01-29 10:01 | ITS.CL.CARDI ---
M[employer] Worker - Cardioversion
Cardioversion
Procedure Report:
Procedure: Direct current electrical cardioversion
Pre-operative diagnosis: Persistent atrial flutter
Post-operative diagnosis: Persistent atrial flutter status post DC cardioversion to sinus rhythm
Anesthesia: MAC
Attending Physician: Mariusz Murillo MD
Procedure Description: The patient was brought to the electrophysiology laboratory in the fasting state. Adherence to anticoagulation regimen was confirmed. Informed consent was obtained from the patient prior to the start of the procedure.
Electrodes were placed on the patient and connected to an external defibrillator. Monitoring of blood pressure, ECG tracings, and pulse oximetry was initiated. The pads were applied to the patient in the anterior and posterior positions. The patient
was sedated by the anesthesiologist. A 200 joule biphasic synchronized shock was delivered to the patient under MAC anesthesia. Sinus rhythm was successfully restored. The patient recovered uneventfully from MAC anesthesia. There were no immediate
post-procedure complications. The patient left the lab in good condition. The attending physician was present throughout the entire procedure.
Impression: Successful direct current cardioversion with evangelical of sinus rhythm after one 200 joule biphasic synchronized shock.
== END 2025-01-29 10:32 | disposition home or self-care (01) ==
LOC: CATH 07:08
PROVIDERS: ATTENDING PHYSICIAN Internal Medicine Cardiovascular Disease; REFERRING PHYSICIAN Nuclear Medicine Nuclear Cardiology
DX: I48.92 Unspecified atrial flutter (principal); Z79.01 Long term (current) use of anticoagulants; Z79.02 Long term (current) use of antithrombotics/antiplatelets; I65.23 Occlusion and stenosis of bilateral carotid arteries; Z95.2 Presence of prosthetic heart valve; I11.0 Hypertensive heart disease with heart failure; Z86.74 Personal history of sudden cardiac arrest; I25.2 Old myocardial infarction; I25.10 Atherosclerotic heart disease of native coronary artery without angina pectoris; Z95.5 Presence of coronary angioplasty implant and graft
CPT/HCPCS: 92960; 93005

== ENCOUNTER 2025-02-24 20:53 | Inpatient (IN) | payer MEDICARE, BC, SELFPAY ==
[2025-02-24 16:33] VITALS: BP 169/107
[2025-02-24 16:53] LABS: Hematocrit 40.0 % (39.0-52.0); Hemoglobin 13.4 g/dL (13.0-18.0); Mean Corp Hgb Conc. 33.5 g/dL (33.0-37.0); Mean Corpuscular Volume 88.7 fL (80.0-94.0); Nucleated Red Blood Cells % 0 % (-); Platelet Count 208 10^3/uL (130-400); Red Cell Dist. Width 15.7 % (11.5-14.5)
[2025-02-24 17:08] LABS: ALT (SGPT) 28 U/L (0-50); AST (SGOT) 27 U/L (17-59); Albumin 4.3 g/dl (3.5-5.0); Alkaline Phosphatase 80 U/L (38-126); Blood Urea Nitrogen 24 mg/dl (9-20); Calcium 9.4 mg/dl (8.4-10.2); Carbon Dioxide 25 mmol/L (22-30); Chloride 106 mmol/L (98-107); Glucose 94 mg/dl (70-99); Potassium 4.0 mmol/L (3.5-5.1); Sodium 139 mmol/L (135-145); Total Protein 6.9 g/dl (6.3-8.2); eGFR > 60.00
[2025-02-24 17:21] LABS: Troponin I 0.017 ng/ml
--- NOTE | 2025-02-24 18:39 | ED.GENMED ---
History of Present Illness
General
Chief Complaint: Breathing Problem
Time Seen by Provider: 02/24/25 18:39
History of Present Illness
History of Present Illness:
FOCUSED PAST MEDICAL HISTORY
- HFpEF, A-fib
REVIEW OF OLD RECORDS
- The patient had electrical cardioversion performed with Dr. Nieves due to persistent a flutter on 01/29/2025. The patient was admitted with acute on chronic HFpEF approximately 7 weeks ago and improved after IV Lasix.
Note:
CHIEF COMPLAINT(S)
Shortness of breath.
HISTORY OF PRESENT ILLNESS
The patient is an 89-year-old male with a history of atrial fibrillation and congestive heart failure. He presented with a chief complaint of difficulty breathing. The patient underwent cardioversion on January 29, which reportedly restored rhythm
but did not alleviate his symptoms significantly until about two weeks later, according to his daughter. However, the patient stopped taking his prescribed diuretics, reportedly due to frequent urination. He tells me that he has been compliant with
Eliquis however his daughter is not certain that this is accurate and the daughter also indicates that the would be unreliable to ask as well. This cessation has led to fluid retention and exacerbation of his symptoms, including increased
shortness of breath. The patient is currently on Eliquis (apixaban) for anticoagulation and metoprolol. He denies missing any doses of Eliquis. His weight fluctuates around 177 pounds, although he has not weighed himself today or yesterday. The
patient also has a recent history of a transcatheter aortic valve replacement (TAVR).
PAST MEDICAL AND SURGICAL HISTORY
The patient has a history of atrial fibrillation and congestive heart failure. He underwent a transcatheter aortic valve replacement (TAVR).
CHRONIC MEDICAL CONDITIONS SIGNIFICANTLY AFFECTING CARE
Atrial fibrillation, congestive heart failure.
MEDICATIONS
The patient is taking Eliquis (apixaban) and metoprolol (100 mg in the morning and 50 mg at night). He was previously on a diuretic but discontinued it.
REVIEW OF SYSTEMS
- Respiratory: Difficulty breathing.
- Cardiovascular: Atrial fibrillation, potential fluid retention due to cessation of diuretic use.
- Skin/Extremities: Peripheral edema noted.
PHYSICAL EXAM
General: The patient appears somewhat weak and debilitated
Skin: Warm, dry.
Head: Normocephalic, atraumatic.
Neck: Supple, trachea midline.
Eye, Ears, Nose, Mouth, and Throat: Oral mucosa moist.
Cardiovascular: Normal peripheral perfusion, No edema. Tachycardic and irregular rhythm
Respiratory: The patient has some conversational dyspnea with slight tachypnea, breath sounds are slightly decreased at the bases
Gastrointestinal: Abdomen nondistended.
Back: Normal range of motion, Normal alignment.
Musculoskeletal: 2+ bilateral lower extremity edema
Neurological: He is awake and alert but seems to have some limited medical knowledge, he gives inconsistent answers to questioning
Psychiatric: Cooperative, appropriate mood & affect.
PROBLEM LIST
Acute:
- Shortness of breath
- Peripheral edema
Chronic:
- Atrial fibrillation
- Congestive heart failure
PLAN
- Initiate intravenous diuretics to manage fluid retention.
- Administer medication to slow the heart rate.
- Admit the patient for further evaluation and management.
DIFFERENTIAL DIAGNOSIS
The Differential Diagnosis includes, in no particular order and is not limited to:
1. Heart failure exacerbation
2. Acute pulmonary edema
3. Chronic Obstructive Pulmonary Disease (COPD) exacerbation
4. Pneumonia
5. Pulmonary embolism
6. Myocardial infarction
7. Renal failure
8. Pleural effusion
9. Pneumothorax
10. Asthma exacerbation
RADIOLOGY
- Chest x-ray suggest some mild interstitial edema
EKG
- A-fib, rate of 91, lateral ST abnormality�the lateral ST abnormality is old however 20-25, the patient was in sinus rhythm
LABS
- CBC unremarkable, chemistries unremarkable, total bili chronically elevated, troponin 0.017, BNP 6230 which is similar to what it was 7 weeks ago at admission
UPDATE
-SUMMARY OF ENCOUNTER
The patient, an 89-year-old male with a history of atrial fibrillation and congestive heart failure, presented to the emergency department with increased shortness of breath. The patients BNP was elevated in the 6,000s, indicating significant fluid
overload and potential heart failure exacerbation. He discontinued his diuretic medication, leading to fluid retention and exacerbation of symptoms. Upon arrival, he was in rapid atrial fibrillation and had lower extremity edema. Based on his
condition and history, intravenous diuretics were administered to manage fluid retention, and an intravenous bolus and drip of diltiazem were initiated to control the heart rate. Admission to the hospital was planned due to the severity and risk of
complications.
DISPOSITION
Admit
ASSESSMENT
The patients presentation and elevated BNP are highly suggestive of a heart failure exacerbation, compounded by rapid atrial fibrillation.
EMERGENCY TREATMENTS ADMINISTERED
Intravenous diuretics and an intravenous bolus and drip of diltiazem were administered to treat fluid overload and rapid atrial fibrillation.
PLAN
The immediate plan involves admission to the hospital for further management of acute heart failure exacerbation and rapid atrial fibrillation. Continued monitoring of cardiac function and adjustment of medications as necessary will occur during the
admission. The patients medication regimen, including anticoagulation therapy and diuretics, will be reassessed for compliance and effectiveness.
INDEPENDENT REVIEW OF LABS AND INTERPRETATION OF TESTS
My independent review of BNP is elevated in the 6,000s.
MEDICATION RECONCILIATION
Continued anticoagulation with apixaban (Eliquis) was considered but not adjusted in the emergency department setting.
MEDICAL DECISION MAKING
-Number and Complexity of Problems Addressed:
Chronic conditions affecting care include atrial fibrillation and congestive heart failure. Differential diagnosis considers heart failure exacerbation, acute pulmonary edema, COPD exacerbation, pneumonia, pulmonary embolism, myocardial infarction,
renal failure, pleural effusion, pneumothorax, and asthma exacerbation.
-Data:
Category 1:
External records were reviewed, including outpatient pharmacy records.
-Risk:
Decisions regarding diagnostic testing were informed by potential risks, including heart failure exacerbation and rapid atrial fibrillation complications.
DIAGNOSIS
Heart failure exacerbation, unspecified (ICD-10: I50.9)
Atrial fibrillation, with RVR
Past History
Past History
ED Past Medical History: Arrthythmia (a fib with ablation 02/2021), CAD, Cancer (lung), HTN, Hypercholesterolemia and Valvular disease; Negative ND
ED Past Surgical History: Cardiac (stent), Cholecystectomy, Orthopedic and Other (lung resection for CA, cleared as of 05/29/21 no radiation or chemo.)
Social History
Tobacco: Former smoker
Alcohol: Occasional
Drug: None
Personal:
Living: with family
Employment: Retired
Family History
Family History: Other
Phy Exam
Physical Exam
Physical Exam:
Seizure
Scores
Heart Failure Risk
Heart Failure Risk Score: Not Applicable
Course
Orders/Labs/Results
Orders:
Orders
02/24/25 16:27
ECG [Electrocardiogram (*1)] Urgent
Reason for Study: Shortness of Breath
EKG- Treatment ONCE
02/24/25 16:44
BNP [NT-proBNP] Urgent
Complete Blood Count/With Diff Urgent
Comprehensive Metabolic Panel Urgent
Troponin I Urgent
02/24/25 16:49
CR Chest - 2 Views Urgent
Comment:
Reason For Exam: SOB
02/24/25 18:54
Diltiazem 125 mg/125 ml Nss [Cardizem] 125 mg in 125 ml IV NOW
Initial dose in mg/hr, then titrate:: 5
Titrate to keep:: Heart rate 80-100 bpm
Titrate by mg/hr:: 5 mg/hr
Frequency of titrations (minutes):: 15
Maximum dose in mg/hr:: 15
Diltiazem HCl [Cardizem] 10 mg IV NOW STA
02/24/25 18:55
Furosemide [Lasix] 40 mg IV NOW STA
Abnormal Lab Results
02/24/25
16:44
RBC 4.51 L 10^6/uL
(4.70-6.10)
RDW 15.7 H %
(11.5-14.5)
Absolute Monos (auto) 0.8 H 10^3/uL
(0.1-0.6)
Lymphocytes % 17.7 L %
(20.5-51.1)
Monocytes % 9.4 H %
(1.7-9.3)
BUN 24 H mg/dl
(9-20)
Total Bilirubin 3.0 H mg/dl
(0.2-1.3)
02/24/25 16:44
02/24/25 16:44
Vital Signs
Initial and Last Documented VS:
Initial Vital Signs
Temp Pulse Resp BP Pulse Ox
36.4 C 89 20 169/107 98
02/24/25 16:33 02/24/25 16:33 02/24/25 16:33 02/24/25 16:33 02/24/25 16:33
Last Documented Vital Signs
Temp Pulse Resp BP Pulse Ox
36.4 C 89 20 169/107 98
02/24/25 16:33 02/24/25 16:33 02/24/25 16:33 02/24/25 16:33 02/24/25 18:43
*Pulse Oximetry
SaO2: 98
Oxygen Mode of Delivery: Room air
Patient hypoxic: no
*Critical Care Note
Total Time (30-74mins, 75-104mins- exclusive of procedures): Not Applicable
ED Attending Note
-
Portions of this chart may have been created with voice recognition software.� Occasional wrong word or��sound alike� substitutions may have occurred due to the inherent limitations of voice recognition software.
Discharge Plan
Departure
Patient Disposition: Admit
Date of Disposition: 02/24/25
Time of Disposition: 19:34
Presentation/result/management discussed w/ accepting /: Hospitalist
Discharge Problem:
Acute exacerbation of CHF (congestive heart failure)
Prescriptions:
No Action
atorvastatin 40 MG tablet
40 mg PO HS
clopidogrel 75 mg Tablet
75 mg PO DAILY Qty: 30 11RF
Eliquis 5 MG tablet
5 mg PO BID Qty: 0 0RF
carbidopa-levodopa 25-100 mg tablet
1 tab PO BID
isosorbide mononitrate 60 mg Tablet Extended Release 24 Hr
60 mg PO DAILY
ipratropium bromide 17 mcg/actuation Hfa Aerosol Inhaler
1 puff INHALATION R DAILY
budesonide 0.5 mg/2 mL Suspension For Nebulization
0.5 mg INHALATION R DAILY
metoprolol succinate 100 mg Tablet Extended Release 24 Hr
100 mg PO DAILY
furosemide 20 mg Tablet
20 mg PO DAILY 30 Days Qty: 30 0RF
Metoprolol Succinate Er tablet
50 mg PO HS
Referrals:
Reza Mayfield DO [Family Provider, Internal Medicine]
Interventions
Interventions:
*General Assessment Last Done: 02/24/25 16:33
Discharge Date and Time
Print Language: BELARUSIAN
[2025-02-24 19:03] VITALS: BP 154/74
[2025-02-24 19:05] VITALS: BMI 32.7
[2025-02-24] MEDS: LASIX 40 MG IV (19:25)
[2025-02-24 19:26] VITALS: BP 137/79
[2025-02-24] MEDS: CARDIZEM 10 MG IV (19:29)
[2025-02-24] MEDS: CARDIZEM 125 IV (19:31)
--- NOTE | 2025-02-24 19:38 | HPS.HSE ---
Family Physician
-
Family Physician: Reza Mayfield
Chief Complaint
-
shortness of breath
History of Present Illness
Patient is a 89-year-old male with past medical history significant for hypertension, hyperlipidemia, HFpEF, Parkinson disease and paroxysmal atrial fibrillation who presented to [facility] ED for evaluation of shortness of breath. Patient reports
cardioversion on 01/29/2025 and states, 'not long after the cardioversion the symptoms started.' He also states he stopped taking his Lasix towards end of January because he was needing to urinate too much. He reports being compliant with all other
medications including Eliquis. Daughter at bedside does not believe patient or are completely reliable. Patient denies fever, chills, cough, chest pain, palpitations, constipation, diarrhea or urinary symptoms. Patient unsure last time he
weighed himself, no longer does daily weights.
Medical History
Past Medical History
Past Medical History: Reports Other
Additional Past Medical History:
hypertension
hyperlipidemia
HFpEF
Parkinson disease
paroxysmal atrial fibrillation on Eliquis
aortic stenosis status post TAVR
NSTEMI
CAD status post stents
PEA arrest
right lung cancer status post resection
pituitary mass
Past Surgical History: Reports Other
Additional Past Surgical History:
TAVR
cardiac cath with stents
R Cataract Surgery 2012
R Carotid stent 2012
R Carpal Tunnel Repair
L Cataract Surgery 2012
Lap Lacie
shoulder Surgery R
PVI 2014 and 2020 for Atrial Fibrillation
right partial Lung ([facility] in [place]) 2018
Pituitary sx 2018
Heart cath - 06/14/22
Social History
Tobacco: Non-smoker
Alcohol: Occasional (a glass of wine a couple nights a week)
Drug: None
Personal:
Living: With Family ()
Employment: Retired
Family History
Family History: Not pertinent
Allergies / Home Medications
Allergies reflects when Allergies were last updated in [email or web address].
Home Medications with original date entered in [email or web address]
Allergy/Medication List:
Allergies
Allergy/AdvReac Type Severity Reaction Status Date / Time
lisinopril Allergy patient Verified 02/24/25 16:36
unaware
Home Medications
atorvastatin 40 mg tablet 40 mg PO HS High cholesterol 02/10/21
clopidogrel 75 mg tablet 75 mg PO DAILY heart disease/condition #30 tabs 01/24/22
apixaban 5 mg tablet (Eliquis) 5 mg PO BID Blood clot prevention/tx #0 tabs 01/30/22
carbidopa 25 mg-levodopa 100 mg tablet 1 tab PO BID Parkinson's disease 06/14/22
ipratropium bromide 17 mcg/actuation HFA aerosol inhaler 1 puff inhalation R DAILY Lung/Breathing Issues 07/27/24
isosorbide mononitrate 60 mg tablet,extended release 24 hr 60 mg PO DAILY Heart Disease/Condition 07/27/24
budesonide 0.5 mg/2 mL suspension for nebulization 0.5 mg inhalation R DAILY Lung/Breathing Issues 08/05/24
metoprolol succinate 100 mg tablet,extended release 24 hr 100 mg PO DAILY Heart Disease/BP 12/16/24
furosemide 20 mg tablet 20 mg PO DAILY 30 days #30 tabs 01/07/25
Metoprolol Succinate Er 50 mg PO HS 01/29/25
Review of Systems
-
History Source: Patient
Constitutional: Denies Fever or Chills
EENT: Denies Sore Throat
Respiratory: Reports Trouble Breathing (exertional dyspnea ); Denies Cough or Hemoptysis
Cardiac: Denies Chest Pain, Diaphoresis, Palpitations or Syncope
Abdomen/GI: Reports Nausea; Denies Abdominal Pain, Vomiting or Diarrhea
: Denies Dysuria, Frequency or Difficulty Voiding
Musculoskeletal: Denies Edema
Skin: Denies Rash
Neurological: Denies Dizzy, Headache, Weakness or Numbness
Endocrine: Reports No Symptoms
Hematologic/Lymphatic: Reports No Symptoms
Psych: Reports No Symptoms
Physical Exam
Vital Signs
Vital Signs
Temp Pulse Resp BP Pulse Ox
97.5 F 101 20 137/79 98
02/24/25 16:33 02/24/25 19:29 02/24/25 16:33 02/24/25 19:29 02/24/25 18:43
Physical Exam
General: Well Developed, Well Nourished, Comfortable, Conversant and Obese
HEENT: NormoCephalic, Moist mucous membranes and Atraumatic
Respiratory: Clear and Decreased Breath Sounds (bilateral lower lobes)
Cardiac: S1/S2, Regular Rhythm and Peripheral Edema (trace bilateral lower extremities ); No Murmur or Rub
GI: Soft, Non Tender, Non Distended and Normal Bowel Sounds; No Organomegaly
Rectal: Deferred by Provider
Genito-urinary: Deferred by me
Musculoskeletal: No Clubbing and No Cyanosis
Skin: Warm and IV/Catheter Site
Neuro: Awake, Alert and Nonfocal/grossly intact
Laboratory Results
-
02/24/25 16:44
02/24/25 16:44
Laboratory Results
Total Bilirubin 3.0 mg/dl (0.2-1.3) H 02/24/25 16:44
AST 27 U/L (17-59) 02/24/25 16:44
ALT 28 U/L (0-50) 02/24/25 16:44
Alkaline Phosphatase 80 U/L (38-126) 02/24/25 16:44
Troponin I 0.017 ng/ml 02/24/25 16:44
Data Reviewed
-
Diagnostic Radiology: Report Reviewed by me (CXR: Trace bilateral pleural effusions. Cardiomegaly.)
Medical Tests (Nuc Med, Echo, EKG etc): Report Reviewed by me (EKG: ATRIAL FIBRILLATION SEPTAL INFARCT , AGE UNDETERMINED ST and T WAVE ABNORMALITY, CONSIDER LATERAL ISCHEMIA)
Lab Data: Labs Reviewed by me (pBNP 9897)
Impression/Plan
-
IMPRESSION/PLAN:
#acute on chronic HFpEF
pBNP 6230
CXR: Trace bilateral pleural effusions. Cardiomegaly.
EKG: ATRIAL FIBRILLATION
SEPTAL INFARCT , AGE UNDETERMINED
ST and T WAVE ABNORMALITY, CONSIDER LATERAL ISCHEMIA
- Admit to telemetry
- Consult Cardiology
- IV Lasix
- daily weights
- I & Os
#hypertension
- continue metoprolol and isosorbide
#Parkinson disease
- continue carbidopa-levodopa
#paroxysmal atrial fibrillation
- continue metoprolol and Eliquis
#hyperlipidemia
- continue atorvastatin
Code status: full code
DVT prophylaxis: Eliquis
--- NOTE | 2025-02-24 19:42 | W.PN.UPDATE ---
Update Note
Progress Note Update
This is an addendum to H&P written by WEL[employer] HOSTESS Phoebe Hicks
I saw and examined the patient.
The WELCOME W[employer] HOSTESS's note was reviewed and I agree with the note.
Comment:
Mr. 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
resection, pituitary adenoma s/p resection presents to the ER with shortness of breath. Patient stopped taking his diuretics two weeks ago 2/2 frequent urination.
Triage VS: T 36.4, P 89, RR 20, BP 169/107, SpO2 98%
On exam patient is AAO x 3, JVP elevated, + LE swelling
LAbs: WBC 8.3, Hg 13.4, PLT 208, Na 139, K+ 4.0, CO2 25, BUN 24, Cr 0.9, Glucose 94, T. Bili 3.0, AST 27, ALT 28, Alk Phos 80, BNP 6230
EKG: afib @ 91
CXR
IMPRESSION:
Trace bilateral pleural effusions. Cardiomegaly.
MAR: IV Lasix, IV Diltiazem gtt
Heart Failure preserved EF, Acute Exacerbation
-admit to telemetry
-IV Lasix
-strict I/o, daily weight
-recent TTE 01/04/25 with EF 60-65%; mild MR
-Cardiology consult
Atrial Fibrillation with RVR
-Hx ablation 2020
-recent cardioversion, back in atrial fibrillation
-continue Eliquis
-continue IV Diltiazem gtt @ 5
-Cardiology consult
CAD
Hx NSTEMI and PEA arrest 06/14/22
Hx PCI 2021
Essential HTN
HLD
Aortic Stensosis s/p TAVR
Right ICA Stenosis s/p stenting 12/02
Lung cancer s/p resection
awaiting med rec
76 minutes spent on patient care
[2025-02-24 20:00] VITALS: BP 151/84
[2025-02-24 21:00] VITALS: BP 148/81
[2025-02-24] MEDS: ELIQUIS 5 MG PO (21:15)
[2025-02-24 21:55] VITALS: BMI 31.4
[2025-02-24 22:01] VITALS: BMI 31.4
[2025-02-24 22:16] VITALS: BP 147/79
--- NOTE | 2025-02-24 22:16 | PTCARENOTE ---
Pt arrived onto floor @2216. Pt AAOx3 and able to walk into room with assistance. Pt with no complaints of pain or SOB at this time. Pt oriented to room and call ballesteros; will continue to monitor.
[2025-02-24] MEDS: LIPITOR 40 MG PO (22:55)
[2025-02-24] MEDS: SINEMET 25-100 1 TABLET PO (22:55)
[2025-02-25] VITALS (7 sets, daily range): BP systolic 121–141; BP diastolic 57–93; BMI 30.9; BMI 30.8
--- NOTE | 2025-02-25 07:22 | CON.CAR ---
Addendum entered and electronically signed by Rojelio Banks DO 02/25/25 16:46:
I saw and examined the patient.
The Applications Programmer Analyst's note was reviewed and I agree with the note.
Comment:
Plan:
Recurrent heart failure likely multifactorial including the patient stopping his Lasix again and recurrent aFib. He has been counseled on continuing Lasix patient.
Recurrent atrial fibrillation. Since ablation for atrial flutter 2 recurrences. Discussed with EP regarding resuming Tikosyn. Monitor QTc
Consider cardioversion prior to discharge.
IV Cardizem stopped
Cont Toprol
He feels improved with diuresis.
Recent echo stable, no need to repeat.
Medical therapy of nonMI troponin.
Transferring to IVU given Tikosyn, HF and possible cv
Original Note:
Consultation
Consultation Request
Date/Time Consultation Requested: 02/25/2025, 2158
Date/Time Consultation Performed: 02/25/2025, 724
Requesting Provider: GUERDA Miranda
Performing Provider: GUERDA Talbert for Dr Banks
Reason for Consultation: SOB
Medical History
-
Chief Complaint: SOB
History of Present Illness:
89-year-old male with history of chronic heart failure preserved EF, paroxysmal atrial fibrillation and atrial flutter status post PVI and CTI ablation for right atrial flutter in December 2024, then recurrent A-fib with subsequent cardioversion
01/29/2025, admission for acute on chronic HFpEF 12/2024, CAD status post stenting of LAD and circumflex in May 2022, PEA cardiac arrest in June 2022 with cath showing stable LAD and circumflex stents, aortic stenosis status post TAVR August
2022, hypertension, hyperlipidemia, Parkinson's disease, and COPD. He presents to ED 02/24/2025 with shortness of breath which has progressively worsened since the end of January, about a week following the 01/29/2025 cardioversion. Patient
stopped his Lasix about 3 weeks ago due to complaints of frequent urination. Weight up 10 pounds since last admission for acute on chronic heart failure in December 2024. He denies chest pain, palpitations, lightheadedness, edema, PND, orthopnea.
ED workup: proBNP 6230, troponin 0.017, BUN/creatinine 24/0.9, NA 139, K4.0, hemoglobin 13.4, TSH pending.
Chest x-ray: No focal consolidation or pneumothorax, trace bilateral pleural effusions.
EKG: Atrial fibrillation, cannot rule out septal infarct, nonspecific ST T wave abnormality, most prominent in lateral leads.
Cardiology consulted for acute heart failure and recurrent atrial fibrillation.
Patient had PVI and CTI ablations on 12/28/2024 for A-fib and atypical atrial flutter respectively. Patient's Tikosyn was stopped following ablation.
He presented back to the hospital 6 days after ablation with acute on chronic heart failure as well as worsening hoarseness following intubation for ablation. ENT was consulted and patient thought to have muscle tension dysphonia with no evidence
of laryngeal injury.
proBNP on admission 01/04/2025 was 7240. Weight on discharge at that time after 12 pound diuresis was 167 pounds.
Weight on admission 02/24/2025 177 pounds on standing scale.
PMH:
acute on chronic HFpEF
Paroxysmal Afib w RVR
h/o atypical atrial flutter and atrial tachycardia
s/p PVI 03/28/15
s/p PVI and atrial flutter ablation 02/14/21
Previous Multaq therapy, stopped after 02/14/21 ablation
s/p PVI CTI ablation for right atrial flutter 12/28/24
Chronic Tikosyn therapy since 06/2021, stopped after ablation 12/28/24
Chronic Eliquis therapy
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
h/o NSTEMI and PEA arrest treated with CPR and Epi 06/14/22
CAD
LCx and proximal LAD stents, patent by cath 05/14/2022
NSTEMI and IFR positive long diffuse mid LAD 50-60% stenosis s/p SONDRA to LAD 06/06/22
cath with stable CAD, patent LAD/circ stents 06/14/22
HTN
Hyperlipidemia
Parkinson's disease
COPD
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
Past Medical History
Past Medical History: Other (In HPI)
Past Surgical History: Cardiac (TAVR, PCI of LCx and LAD, PVI 2014 and 2020), Orthopedic and Other (carotid stent)
Social History
Tobacco: Non-Smoker
Alcohol: None
Drug: None
Personal:
Living: With Family
Family History
Family History: Other (CVA)
Allergies / Home Medications
Allergy/AdvReac Type Severity Reaction Status Date / Time
lisinopril Allergy patient Verified 02/24/25 16:36
unaware
�Medication �Instructions �Recorded �Confirmed �Type
atorvastatin 40 mg tablet 40 mg PO HS High cholesterol 02/10/21 02/24/25 History
clopidogrel 75 mg tablet 75 mg PO DAILY heart 01/24/22 02/24/25 Rx
disease/condition #30 tabs
apixaban 5 mg tablet (Eliquis) 5 mg PO BID Blood clot 01/30/22 02/24/25 Rx
prevention/tx #0 tabs
carbidopa 25 mg-levodopa 100 mg 1 tab PO BID Parkinson's disease 06/14/22 02/24/25 History
tablet
ipratropium bromide 17 1 puff inhalation R DAILY 07/27/24 02/24/25 History
mcg/actuation HFA aerosol inhaler Lung/Breathing Issues
isosorbide mononitrate 60 mg 60 mg PO DAILY Heart 07/27/24 02/24/25 History
tablet,extended release 24 hr Disease/Condition
budesonide 0.5 mg/2 mL suspension 0.5 mg inhalation R DAILY 08/05/24 02/24/25 History
for nebulization Lung/Breathing Issues
metoprolol succinate 100 mg 100 mg PO DAILY Heart Disease/BP 12/16/24 02/24/25 History
tablet,extended release 24 hr
furosemide 20 mg tablet 20 mg PO DAILY 30 days #30 tabs 01/07/25 02/24/25 Rx
Metoprolol Succinate Er 50 mg PO HS 01/29/25 02/24/25 History
Review of Systems
-
History Source: Patient
All other systems: Negative unless noted
Physical Exam
Vital Signs
Temp Pulse Resp BP Pulse Ox
97.4 F 94 18 130/80 96
02/25/25 02:58 02/25/25 02:58 02/25/25 02:58 02/25/25 02:58 02/25/25 02:58
Lab Results
02/24/25 16:44
Troponin I 0.017 ng/ml 02/24/25 16:44
[id number] Pept 6230 pg/ml 02/24/25 16:44
GEN: No distress, awake, Ox3
HEENT: supple, anicteric, mmm
LUNGS: CTA, no wheezes/rales
CV: Irregularly irregular, S1/S2, 1/6 syst murmur
ABD: soft, BS+, NT/ND
EXT: No edema
NEURO: Gross non-focal
SKIN: No rash
Impression / Plan
-
PCP: Dr. Mayfield
Hourly Associate: Dr. Banks
Impression:
Presented with SOB 02/24/2025
Acute on chronic HFpEF
admission for acute on chronic HFpEF 01/04/25-01/07/25
Paroxysmal Afib
h/o atypical atrial flutter and atrial tachycardia
s/p PVI 03/28/15
s/p PVI and atrial flutter ablation 02/14/21
Previous Multaq therapy, stopped after 02/14/21 ablation
s/p PVI CTI ablation for right atrial flutter 12/28/24
Chronic Tikosyn therapy since 06/2021, stopped after ablation 12/28/24
-s/p cardioversion 01/29/2025
Chronic Eliquis therapy
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
h/o NSTEMI and PEA arrest treated with CPR and Epi 06/14/22
CAD
LCx and proximal LAD stents, patent by cath 05/14/2022
NSTEMI and IFR positive long diffuse mid LAD 50-60% stenosis s/p SONDRA to LAD 06/06/22
cath with stable CAD, patent LAD/circ stents 06/14/22
HTN
Hyperlipidemia
Parkinson's disease
COPD
Elevated troponin
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
Echo 06/05/2022: EF 75%, no WMA, aortic valve peak/mean 63/35 mmHg and FANY 1.0 cm sq, mild aortic regurgitation, mild MR
Echo 08/17/2022: EF 65 to 70%, stage II diastolic dysfunction, severe biatrial dilation, moderate MR, MAC, status post TAVR with mean gradient 6 mmHg trace AI, moderate TR, moderate to severe pulmonary hypertension
Echo 09/17/2022: EF 65 to 70%, moderate LVH, mild to moderate MR, well-seated TAVR with peak/mean gradients 19/8 mmHg, mild TR, estimated PAP 47 mmHg
Echo 10/04/2023: EF 55 to 60%, TAVR well-seated with peak/mean 15/8 mmHg
Echo 08/06/2024: EF 60 to 65%, mild MR, TAVR well-seated peak/mean 17/10 mmHg
Echo 01/04/2025: EF 60 to 65%, mild concentric LVH, mild MR, TAVR well-seated peak/mean 17/7 mmHg, no aortic regurgitation, mild TR, dilated IVC that does not collapse, small PFO/ASD following PVI 12/28/2024
Plan:
-Acute on chronic HFp EF
-proBNP 6230 on admission
-Continue IV diuresis with Lasix 40 mg IV twice daily, wt down 3 lbs overnight (standing scale). Previous dry wt 167lbs
-consider addition of Spironolactone
-consider addition of SGLT2
-Daily weights and I&O's
-EF preserved on echo 01/04/2025 and previously placed TAVR is well-seated with peak/mean 17/7 mmHg
-Discussed importance of compliance with diuretics in outpatient setting.
-Afib
-recurrent afib s/p PVI and CTI flutter ablation 12/28/2024
-rates controlled. Can stop Cardizem gtt, will increase Metoprolol to 100 mg bid-I ordered
-consider re-initiation of Tikosyn, previous dose of Tikosyn was 250 mcg every 12 hours. Creat 0.9
-Outpatient dose of Eliquis 5 mg BID (age 89, Cre 0.9 wt 79 kg) has been continued
-CAD
-Patient is chronically on Plavix for history of carotid disease and CAD. He is status post PCI with SONDRA to OM2 and LAD in 05/2022
-no CP
-Troponin 0.017
-cont med management of CAD with isosorbide, beta-kt, Plavix, statin
- LDL 76, Ideally should be less than 55, consider uptitrate atorvastatin
Data Reviewed
-
EKG: Tracing Personally Visualized and interpreted
Medical Tests (Nuc Med, Echo etc): Image Personally Visualized and interpreted
Labs: Labs Reviewed by me
[2025-02-25] MEDS: ATROVENT NEBULES 0.5 MG INH (07:37)
[2025-02-25] MEDS: PULMICORT 0.5 MG INH (07:37)
[2025-02-25] MEDS: PLAVIX 75 MG PO (08:00)
[2025-02-25] MEDS: TOPROL XL 100 MG PO (08:00)
[2025-02-25] MEDS: SINEMET 25-100 1 TABLET PO ×2 (08:00→21:05)
[2025-02-25] MEDS: IMDUR (EXTENDED RELEASE) 60 MG PO (08:01)
[2025-02-25] MEDS: ELIQUIS 5 MG PO ×2 (08:01→21:05)
--- NOTE | 2025-02-25 08:12 | W.PN.UPDATE ---
Update Note
Progress Note Update
I saw and evaluated the patient. I reviewed the resident�s note and agree with findings and plan as documented in the resident�s note.
Denies SOB.
Gen: NAD, Awake and alert
Eyes: EOMI, PERRLA, no scleral icterus.
Neck: supple.
CV: irreg/irreg, +S1/S2, no m/r/g.
Resp: dec BS in the bases, otherwise CTAB, no rales, wheezes, or rhonchi.
Abd: +BS, soft, NT, ND
Skin: No rashes. trace LE edema.
Neuro: CN 2-12 intact, non-focal.
Psych: Normal mood and affect.
CXR: Trace bilateral pleural effusions. Cardiomegaly.
Acute on chronic HFpEF:
-proBNP 6230
-cont IV lasix
-cont BB
-daily wts, I/Os
-c/s cards
Afib with RVR:
-h/o ablation x 2 and CV
-cont BB/Eliquis
-cont cardizem gtt, likely wean off today
Other problems:
CAD: h/o NSTEMI and PEA arrest 06/14/22, h/o PCI 2021, cont statin/Plavix/BB
Obesity due to excess calories
Essential HTN: cont BB/Imdur
HLD: cont statin
Aortic Stensosis s/p TAVR
Right ICA Stenosis s/p stenting 12/02
Lung cancer s/p resection
FULL/Eliquis
--- NOTE | 2025-02-25 09:09 | W.PN.HOSP.TC ---
Today's Communication/Plan
-
-continue rate control
-strict I&O's and daily weight
-continue to monitor
Assessment / Plan
Assessment / Plan
89-year-old male with past medical history of paroxysmal atrial fibrillation, HFpEF, Parkinson's disease, Lung cancer s/p resection, hyperlipidemia, and hypertension presented to the ER for shortness of breath. To note the patient has stopped
taking his Lasix medication around January. He recently had a cardioversion on 01/29/2025.
#acute of chronic HFpEF
Dry weight: 167lbs from cardiology notes 01/29/2025
Troponin 0.017
-pBNP: 6230
ECG: AFib, Septal infarct (age undertermined). ST and T wave abnormality
-on telemetry
-On Cardizem drip, wean
-Lasix 40 mg IV BID
-daily weight and strict I&O's
-appreciate cardiology
# Paroxysmal atrial fibrillation
s/p PVI and CTI ablation 12/28/2024
s/p cardioversion 01/29/2025
-Metoprolol succinate 100 mg OD, metoprolol 50 mg at bedtime
-Eliquis 5 mg BID
- Isosorbide mononitrate 60 mg OD
- Clopidogrel 75 mg OD
#Hypertension
-Continue metoprolol
#Hyperlipidemia
- Continue PLASTER MACHINE OPERATOR atorvastatin 40 mg HS
#Parkinson disease
Continue PLASTER MACHINE OPERATOR carbidopa/levodopa BID
#Lung cancer s/p resection
#restrictive lung disease
-continue on PLASTER MACHINE OPERATOR budesonide, ipratropium bromide
DVT prophylaxis: Eliquis
Full Code
Anticipated Discharge: 24 - 48 hours
Subjective/Interval History
-
Date of Service: February 25, 2025
The patient has no specific complaints. His shortness of breath has improved. He denies chest pain, palpitation, nausea, and vomiting.
Objective Data
-
Labs:
Laboratory Results
02/25/25
08:46
Sodium Pending
Potassium Pending
Chloride Pending
Carbon Dioxide Pending
BUN Pending
Creatinine Pending
Glucose Pending
Calcium Pending
Vital Signs:
Vital Signs
Temp Pulse Resp BP Pulse Ox
98.4 F 76 17 141/83 98
02/25/25 07:43 02/25/25 08:00 02/25/25 07:43 02/25/25 08:00 02/25/25 07:43
I&O
02/24/25 02/25/25 02/26/25
06:59 06:59 06:59
Intake Total 480 / 480
Output Total 2470 / 2470
Balance -1989 / -1989
Physical Exam
-
General: No Apparent Distress and Conversant
HEENT: Normocephalic
Respiratory: Clear to Auscultation and Non Labored Respirations
Cardiac: Irregular Rhythm
GI: Soft and Nontender
Musculoskeletal: No Clubbing, No Cyanosis and Other (+1 Bilateral LE edema )
Skin: Warm
Neuro: AO x 3
Hematologic / Lymphatic: No Lymphadenopathy
Psych: Calm
[2025-02-25 10:33] LABS: Blood Urea Nitrogen 22 mg/dl (9-20); Calcium 9.1 mg/dl (8.4-10.2); Carbon Dioxide 32 mmol/L (22-30); Chloride 102 mmol/L (98-107); Estimated Creatinine Clearance 53 ml/min; Glucose 113 mg/dl (70-99); HDL Cholesterol 48 mg/dl; LDL Cholesterol, Calculated 76 mg/dl; Magnesium 2.0 mg/dl (1.6-2.3); Potassium 3.5 mmol/L (3.5-5.1); Sodium 139 mmol/L (135-145); Very Low Density Lipoprotein 15 mg/dl (0-30); eGFR > 60.00
[2025-02-25] MEDS: LASIX 40 MG IV ×2 (10:56→15:57)
--- NOTE | 2025-02-25 12:07 | W.CARD.TIKOS ---
Initiate Tikosyn
-
I verify that the patient has not taken any verapamil (Isoptin/Calan), ketoconazole (Nizoral), cimetidine (Tagamet), trimethoprim (Trimpex), trimethoprim/sulfamethoxazole (Bactrim), megesterol (Megace), prochlorperazine (Compazine),
hydrochlorothiazide (HCTZ), dolutegravir (Tivicay) or any Class I or Class III anti-arrhythmic within the last three days
AND
I verify that the patient has not taken amiodarone within the last THREE months, or that the patient's amiodarone plasma concentration is <0.3 mcg/mL.
Creatinine 0.9 mg/dL (0.7-1.3) 02/25/25 08:46
Estimated Creat Clear 53 ml/min 02/25/25 08:46
Calculated creatinine clearance 63.39
Does patient have a Ventricular Conduction Abnormality: No
I have assessed the baseline QTc interval (using QT for heart rate less than 60 bpm) and deemed the patient is appropriate for Dofetilide therapy. I understand that Tikosyn is contraindicated if the QTc is >440msec (500msec in patients with
ventricular conduction abnormalities).
Baseline QTc (in msec): 450
QTc interval is greater than 440msec without conduction abnormality OR greater than 500msec with a conduction abnormality, but acceptable to proceed per Cardiology attending.
Patient was previously on Tikosyn 250 mcg twice daily and tolerated without prolongation of QTc. Restarting at same dose.
Ordering Physician: Rojelio Banks
--- NOTE | 2025-02-25 12:23 | CM ---
Patient seen bedside, initial assessment completed. Patient is a 89-year-old male with past medical history significant for hypertension, hyperlipidemia, HFpEF, Parkinson disease and paroxysmal atrial fibrillation who presented to [facility] ED for
evaluation of shortness of breath. On room air currently.
Patient resides w/ spouse in a 2nd floor apartment, elevator access. Patient independent w/ RW and cane. Independent w/ ADLs and personal care. Patient has a tub grab bar and shower chair. Denies SNF hx. Prev known to [facility], patient would
like [facility] again if HC is recommended.
Address, points of contact and insurance verified
PCP: Reza Mayfield
Pharmacy: [facility]
Plan: Home, will watch for any needs
[2025-02-25] MEDS: KCL 40 MEQ PO (12:26)
--- NOTE | 2025-02-25 15:09 | PTCARENOTE ---
Addendum entered by Miranda Robert RN 02/25/25 15:13:
He has no complaints.
Original Note:
Received the patient from the in a wheelchair. The patient is aaox3 but forgetful. His vital signs are stable. Afib is noted on the monitor with a HR of 74. He ambulated to the bed x1 assist without difficulty. He states he uses a rolling walker
at home. A chair and bed alarm are engaged as he is forgetful. I encourage him to ring the call ballesteros for when he needs to get oob. His call ballesteros is within reach.
Pre-Tikosyn dose QTc is 479.
[2025-02-25] MEDS: TIKOSYN 250 MCG PO (15:56)
[2025-02-25] MEDS: FLUSH (NSS) 2 FLUSH IV (15:57)
--- NOTE | 2025-02-25 16:29 | CM ---
Addendum entered by Donita Bailon RN 02/26/25 13:49:
I spoke to the patient and he is unsure if he has his Dofetilide 250mcq at home, he thinks he may have thrown them out. Patient's to look for them. I called [facility] and if the patient does not have them they will do a override for lost.
Original Note:
Reviewed chart. Mr. Gold was transferred to IVU. Telephone call to [facility], to check on co-pay for Tikosyn. His co-pay would be $15.00 for a 90 day supply. Lianet Quiles states he is already on this medication. and his next time he
can fill this script would be on 03/13/25.
--- NOTE | 2025-02-25 18:22 | PTCARENOTE ---
1st dose Tikosyn QTc was 412.
[2025-02-25] MEDS: TOPROL XL 50 MG PO (21:04)
[2025-02-25] MEDS: LIPITOR 40 MG PO (21:05)
[2025-02-25] MEDS: DESENEX/MITRAZOL/ZEASORB 1 APPLIC TOPICAL (21:05)
--- NOTE | 2025-02-25 23:29 | PTCARENOTE ---
Received pt @ change of shift. AAOx3, VSS-- A-Fib with occasional PVCs on monitor. Bed alarm in place for pt safety. Discussed plan of care, including 0400 Tikosyn dose and being NPO @ midnight. Pt verbalizes understanding. Call ballesteros within reach.
[2025-02-26] VITALS (10 sets, daily range): BP systolic 98–130; BP diastolic 54–98; BMI 30.4
[2025-02-26] MEDS: TIKOSYN 250 MCG PO (03:25)
[2025-02-26 04:17] LABS: Hematocrit 40.8 % (39.0-52.0); Hemoglobin 14.0 g/dL (13.0-18.0); Mean Corp Hgb Conc. 34.3 g/dL (33.0-37.0); Mean Corpuscular Volume 87.2 fL (80.0-94.0); Platelet Count 220 10^3/uL (130-400); Red Cell Dist. Width 15.6 % (11.5-14.5)
[2025-02-26 04:59] LABS: Blood Urea Nitrogen 27 mg/dl (9-20); Calcium 9.1 mg/dl (8.4-10.2); Carbon Dioxide 27 mmol/L (22-30); Chloride 103 mmol/L (98-107); Estimated Creatinine Clearance 52 ml/min; Glucose 99 mg/dl (70-99); Magnesium 2.0 mg/dl (1.6-2.3); Potassium 3.7 mmol/L (3.5-5.1); Sodium 137 mmol/L (135-145); eGFR > 60.00
[2025-02-26] MEDS: PULMICORT 0.5 MG INH (07:08)
[2025-02-26] MEDS: ATROVENT NEBULES 0.5 MG INH (07:08)
[2025-02-26] MEDS: DESENEX/MITRAZOL/ZEASORB 1 APPLIC TOPICAL ×2 (07:55→21:01)
[2025-02-26] MEDS: SINEMET 25-100 1 TABLET PO ×2 (07:55→21:01)
[2025-02-26] MEDS: IMDUR (EXTENDED RELEASE) 60 MG PO (07:55)
[2025-02-26] MEDS: ELIQUIS 5 MG PO ×2 (07:55→21:01)
[2025-02-26] MEDS: PLAVIX 75 MG PO (07:55)
[2025-02-26] MEDS: TOPROL XL 100 MG PO (07:55)
[2025-02-26] MEDS: LASIX 40 MG IV ×2 (07:56→16:20)
--- NOTE | 2025-02-26 08:53 | PTCARENOTE ---
Assumed care at 0700. Patient in chair AO x3, forgetful, alarms audible. A-fib Hr 90's, occasional PVC's. +1 lower extremity edema, IV Lasix given. Lungs CTA, denies SOB, using urinal at bedside, call ballesteros in reach
--- NOTE | 2025-02-26 09:12 | W.PN.UPDATE ---
Update Note
Progress Note Update
I saw and evaluated the patient. I reviewed the resident�s note and agree with findings and plan as documented in the resident�s note.
No new complaints.
Gen: NAD, Awake and alert
Eyes: EOMI, PERRLA, no scleral icterus.
Neck: supple.
CV: irreg/irreg, +S1/S2, no m/r/g.
Resp: CTAB, no rales, wheezes, or rhonchi.
Abd: +BS, soft, NT, ND
Skin: No rashes. no LE edema.
Neuro: CN 2-12 intact, non-focal.
Psych: Normal mood and affect.
CXR: Trace bilateral pleural effusions. Cardiomegaly.
Acute on chronic HFpEF:
-proBNP 6230
-cont IV lasix
-cont BB
-daily wts, I/Os
-c/s cards
Afib with RVR:
-h/o ablation x 2 and CV
-was on cardizem gtt, now off
-cont BB/Eliquis
-cont Tikosyn
-for cardioversion today
Other problems:
CAD: h/o NSTEMI and PEA arrest 06/14/22, h/o PCI 2021, cont statin/Plavix/BB
Obesity due to excess calories
Essential HTN: cont BB/Imdur
HLD: cont statin
Aortic Stensosis s/p TAVR
Right ICA Stenosis s/p stenting 12/02
Lung cancer s/p resection
FULL/Eliquis
--- NOTE | 2025-02-26 09:14 | W.PN.CARDCBS ---
Addendum entered and electronically signed by Tiffanie Smith DO 02/26/25 11:41:
Patient was seen at time of cardioversion for atrial flutter. Chart/telemetry reviewed. Anticoagulation reviewed. Consent signed. DC cardioversion with the 150 J x 1 successful with converting patient from atrial flutter to sinus bradycardia.
No immediate complications
Addendum entered and electronically signed by Harpreet Jean MD 02/26/25 10:56:
89-year-old man admitted with acute on chronic HFpEF on 02/24/2025 related to noncompliance with diuretic and dofetilide, found to be in atrial fibrillation/flutter at the time of admission.
PMH: Atrial flutter and atrial tachycardia with PVI 2014 and 2020, CTI ablation December 2024, admitted with HFpEF December 2024, history of NSTEMI and PEA arrest June 2022, PAD status post PCI to left circumflex and proximal LAD, patent by cardiac
catheterization 2021 with subsequent SONDRA to LAD for diffuse LAD disease with positive IFR May 2022, patent by catheterization June 2022, Parkinson's, hypertension, hyperlipidemia, COPD.
Current meds: Apixaban 5 mg twice daily, atorvastatin 40 mg a day, Pulmicort, clopidogrel 75 mg a day, Atrovent, isosorbide mononitrate, furosemide 40 mg IV twice daily, Sinemet, metoprolol ER 100 in AM and 50 in p.m., dofetilide 250 mcg twice
daily, potassium 20 mill equivalents daily
130/91, pulse 94, respiratory rate 18, afebrile, head neck exam unremarkable, lungs are clear, cardiac exam without obvious murmurs or gallops JVD okay, abdomen benign extremities without clubbing cyanosis or edema
Chest x-ray: Small effusions, cardiomegaly
Hemoglobin 14.0, white count 9.6, platelets 220, BUN and creatinine 27 and 0.9, potassium 3.7
ECG: Probable atrial flutter, 2-1 conduction, septal DC, prolonged QT, nonspecific ST and T wave changes
Carotid sinus massage: Complete heart block persisting 5 to 8 seconds with underlying flutter waves
Echo 01/04/2025: EF 60 to 65%, mild concentric LVH, mild MR, TAVR well-seated peak/mean 17/7 mmHg, no aortic regurgitation, mild TR, dilated IVC that does not collapse, small PFO/ASD following PVI 12/28/2024
Impression:
Acute on chronic HFpEF related to atrial flutter
Recurrent atrial flutter/history of atrial fibrillation
History of PVI x 2, CTI ablation
CAD, with LAD and circumflex PCI
Noncompliance
History of TAVR
History of carotid stent and right
History of PEA arrest
Hypertension
Hypercholesterolemia
Parkinson's
Lung cancer status postresection
History of pituitary adenoma
Plan:
Cardioversion
Could consider SGLT2 antagonist/spironolactone
Would favor discontinuation of clopidogrel
Likely transition to oral furosemide in a.m.
Original Note:
Today's Communication / Plan
-
cardioversion today
may need to reduce Tikosyn dose, monitor QTc
Impression / Plan
-
PCP: Dr. Mayfield
Baseball Sewer Hand: Dr. Banks
Impression:
Presented with SOB 02/24/2025
Acute on chronic HFpEF
admission for acute on chronic HFpEF 01/04/25-01/07/25
Paroxysmal Afib
h/o atypical atrial flutter and atrial tachycardia
s/p PVI 03/28/15
s/p PVI and atrial flutter ablation 02/14/21
Previous Multaq therapy, stopped after 02/14/21 ablation
s/p PVI CTI ablation for right atrial flutter 12/28/24
Chronic Tikosyn therapy since 06/2021, stopped after ablation 12/28/24
-s/p cardioversion 01/29/2025
-Tikosyn restarted 02/25/2025 at old dose of 250 mcg bid.
Chronic Eliquis therapy
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
h/o NSTEMI and PEA arrest treated with CPR and Epi 06/14/22
CAD
LCx and proximal LAD stents, patent by cath 05/14/2022
NSTEMI and IFR positive long diffuse mid LAD 50-60% stenosis s/p SONDRA to LAD 06/06/22
cath with stable CAD, patent LAD/circ stents 06/14/22
HTN
Hyperlipidemia
Parkinson's disease
COPD
Elevated troponin
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
Echo 06/05/2022: EF 75%, no WMA, aortic valve peak/mean 63/35 mmHg and FANY 1.0 cm sq, mild aortic regurgitation, mild MR
Echo 08/17/2022: EF 65 to 70%, stage II diastolic dysfunction, severe biatrial dilation, moderate MR, MAC, status post TAVR with mean gradient 6 mmHg trace AI, moderate TR, moderate to severe pulmonary hypertension
Echo 09/17/2022: EF 65 to 70%, moderate LVH, mild to moderate MR, well-seated TAVR with peak/mean gradients 19/8 mmHg, mild TR, estimated PAP 47 mmHg
Echo 10/04/2023: EF 55 to 60%, TAVR well-seated with peak/mean 15/8 mmHg
Echo 08/06/2024: EF 60 to 65%, mild MR, TAVR well-seated peak/mean 17/10 mmHg
Echo 01/04/2025: EF 60 to 65%, mild concentric LVH, mild MR, TAVR well-seated peak/mean 17/7 mmHg, no aortic regurgitation, mild TR, dilated IVC that does not collapse, small PFO/ASD following PVI 12/28/2024
Plan:
-Acute on chronic HFp EF
-proBNP 6230 on admission
-Continue IV diuresis with Lasix 40 mg IV twice daily, wt down 2 lbs overnight and at least 6 lbs since admission using standing scale to wt of 171 lbs. Previous dry wt 167lbs
-consider addition of Spironolactone
-consider addition of SGLT2
-creat stable 0.9
-Daily weights and I&O's
-EF preserved on echo 01/04/2025 and previously placed TAVR is well-seated with peak/mean 17/7 mmHg
-Discussed importance of compliance with diuretics in outpatient setting.
-Afib
-recurrent afib (2nd reoccurrence, had CV 01/29/2025) s/p PVI and CTI flutter ablation 12/28/2024
-rates controlled
-restarted Tikosyn at previous dose of 250 mcg every 12 hours which he was on prior to ablation. has rec'd 2 doses so far. Remains in afib/flutter, rhythm now more regular. HRs 90s.
-carotid sinus massage performed this morning to slow rhythm to help determine if he is in sinus vs afib/flutter - had 6 sec pause - flutter waves visible, confirming aflutter/fib. Pt was asympomatic.
-proceed with CV today
-QTc now more prolonged at 519 msec. May need to reduce Tikosyn dose. Will have repeat EKG following cardioversion to reassess.
-K 3.7 will replete with 40 meq daily today and start KCl 20 meq daily starting tomorrow.
-mag 2.0
-Outpatient dose of Eliquis 5 mg BID (age 89, Cre 0.9 wt 79 kg) has been continued
-CAD
-Patient is chronically on Plavix for history of carotid disease and CAD. He is status post PCI with SONDRA to OM2 and LAD in 05/2022
-no CP
-Troponin 0.017
-cont med management of CAD with isosorbide, beta-kt, Plavix, statin
- LDL 76, Ideally should be less than 55, consider uptitrate atorvastatin
Progress Note - Baseball Sewer Hand
Subjective
Date of Service: February 26, 2025
-remains in atrial flutter s/p starting Tikosyn
-denies SOB
-no palps
Objective
Labs:
02/26/25 03:25
02/26/25 03:25
Labs
Hgb 14.0 g/dL (13.0-18.0) 02/26/25 03:25
Hct 40.8 % (39.0-52.0) 02/26/25 03:25
Plt Count 220 10^3/uL (130-400) 02/26/25 03:25
Sodium 137 mmol/L (135-145) 02/26/25 03:25
Potassium 3.7 mmol/L (3.5-5.1) 02/26/25 03:25
BUN 27 mg/dl (9-20) H 02/26/25 03:25
Creatinine 0.9 mg/dL (0.7-1.3) 02/26/25 03:25
Glucose 99 mg/dl (70-99) 02/26/25 03:25
Troponins
02/24/25
16:44
Troponin I 0.017
Vital Signs and I&O:
Vital Signs
Temp Pulse Resp BP Pulse Ox
97.8 F 94 18 130/91 97
02/26/25 07:24 02/26/25 07:55 02/26/25 07:24 02/26/25 07:55 02/26/25 07:24
Vital Signs
Temp Pulse Resp BP Pulse Ox
97.8 F 94 18 130/91 97
02/26/25 07:24 02/26/25 07:55 02/26/25 07:24 02/26/25 07:55 02/26/25 07:24
Intake & Output
02/24/25 02/25/25 02/26/25 02/27/25
06:59 06:59 06:59 06:59
Intake Total 480 / 480 1005 / 1005
Output Total 2470 / 2470 5 / 2075 525 / 525
Balance -1989 -1070 / -1070 -
Physical Exam
Physical Exam
GEN: No distress, awake, Ox3
HEENT: supple, anicteric, mmm
LUNGS: CTA, no wheezes/rales
CV: Reg, S1/S2, no murmur
ABD: soft, BS+, NT/ND
EXT: trace LE edema. LEs cool
NEURO: Gross non-focal
SKIN: No rash
--- NOTE | 2025-02-26 09:30 | W.PN.HOSP.TC ---
Today's Communication/Plan
-
-on Tikosyn, cardioversion today per cardiology
-ECG prn
-monitoring for potassium, qtc
-strict I&O's and daily weight
Assessment / Plan
Assessment / Plan
89-year-old male with past medical history of paroxysmal atrial fibrillation, HFpEF, Parkinson's disease, Lung cancer s/p resection, hyperlipidemia, and hypertension presented to the ER for shortness of breath. To note the patient has stopped
taking his Lasix medication around January. He recently had a cardioversion on 01/29/2025.
#acute of chronic HFpEF
Dry weight: 167lbs from cardiology notes 01/29/2025
Troponin 0.017
-pBNP: 6230
ECG: AFib, Septal infarct (age undertermined). ST and T wave abnormality
-Lasix 40 mg IV BID
-daily weight and strict I&O's
-appreciate cardiology
# Paroxysmal atrial fibrillation
s/p PVI and CTI ablation 12/28/2024
s/p cardioversion 01/29/2025
-for cardioversion today
-Tikosyn therapy, 2 doses
-Metoprolol succinate 100 mg OD, metoprolol 50 mg at bedtime
-Eliquis 5 mg BID
- Isosorbide mononitrate 60 mg OD
- Clopidogrel 75 mg OD
-on telemetry
-ECG as needed
-K- 3.7--> repletion therapy
#Hypertension
-Continue metoprolol
#Hyperlipidemia
- Continue FORMING DEPARTMENT SUPERVISOR atorvastatin 40 mg HS
#Parkinson disease
Continue FORMING DEPARTMENT SUPERVISOR carbidopa/levodopa BID
#Lung cancer s/p resection
#restrictive lung disease
-continue on FORMING DEPARTMENT SUPERVISOR budesonide, ipratropium bromide
DVT prophylaxis: Eliquis
Full Code
Anticipated Discharge: > 48 hours
Subjective/Interval History
-
Date of Service: February 26, 2025
The patient does not have any specific concerns today. He denies any palpitation, shortness of breath, lightheadedness and weakness.
Objective Data
-
Labs:
Laboratory Results
02/26/25
03:25
WBC 9.6
Hgb 14.0
Hct 40.8
Plt Count 220
Sodium 137
Potassium 3.7
Chloride 103
Carbon Dioxide 27
BUN 27 H
Creatinine 0.9
Glucose 99
Calcium 9.1
Vital Signs:
Vital Signs
Temp Pulse Resp BP Pulse Ox
97.8 F 94 18 130/91 97
02/26/25 07:24 02/26/25 07:55 02/26/25 07:24 02/26/25 07:55 02/26/25 07:24
I&O
02/25/25 02/26/25 02/27/25
06:59 06:59 06:59
Intake Total 480 / 480 1005 / 1005
Output Total 2470 / 2470 2074 / 2074 525 / 525
Balance -1989 / -1989 -0 / -1070 - / -525
Review of Systems
-
History Source: Patient
Constitutional: Denies Fever, Fatigue or Weakness
EENT: Reports No Symptoms Reported
Respiratory: Denies Cough or Trouble Breathing
Cardiac: Denies Chest Pain, Palpitations or Syncope
Abdomen/GI: Denies Abdominal Pain, Nausea, Vomiting or Diarrhea
Genitourinary: Reports No Symptoms
Musculoskeletal: Reports No Symptoms
Neuro: Denies Headache, Weakness or Ataxia
Physical Exam
-
General: No Apparent Distress and Conversant
HEENT: Normocephalic
Respiratory: Clear to Auscultation and Non Labored Respirations
Cardiac: Regular Rhythm
GI: Soft and Nontender
Musculoskeletal: No Clubbing and No Cyanosis
Skin: Warm
Neuro: AO x 3
Hematologic / Lymphatic: No Lymphadenopathy
Psych: Calm
[2025-02-26] MEDS: KCL 40 MEQ PO (10:14)
--- NOTE | 2025-02-26 10:28 | PTCARENOTE ---
Report called to the [facility], patient sent to [facility] for CV
--- NOTE | 2025-02-26 11:41 | ITS.CL.CARDI ---
Gun Profiler - Cardioversion
Cardioversion
Procedure Report:
Date of Procedure:
Procedure: Cardioversion
Indication: Symptomatic atrial flutter
Performing Physician: Tiffanie Smith DO LOCATED WITHIN [facility]
Technique: The patient was brought to the holding area. Signed informed consent was obtained. A time out was called and performed. The patient was anesthetized by the anesthesia service. Anticoagulation status was reviewed and appropriate. R2 pads
were placed anteriorly and posteriorly. A 150 J synchronized biphasic shock restored to sinus bradycardia. There were no complications.
Conclusion: Uncomplicated cardioversion from atrial flutterto sinus rhythm.
Recommendation: Patient will be returned to his room in IVU for for Tikosyn initiation and routine post cardioversion care. Continue computer terminal operator anticoagulation.
--- NOTE | 2025-02-26 13:51 | CM ---
Chart reviewed. Patient is independent of ADLS, lives with his in a 2nd floor apartment, elevator access, ambulates with a RW and SPC. Patient has grab bars in the shower and a shower chair. Patient declined VN. Patient is on 125mcq
Dofetilide, it is in stock at the patient's [facility]. Notified the nurse the patient will need a 3 day script for discharge
[2025-02-26] MEDS: TIKOSYN 125 MCG PO (16:04)
[2025-02-26] MEDS: LIPITOR 40 MG PO (21:01)
[2025-02-26] MEDS: TOPROL XL 50 MG PO (21:02)
--- NOTE | 2025-02-27 00:45 | PTCARENOTE ---
Received pt @ change of shift. AAOx3, VSS-- NSR w/ BBB on monitor. Bed and chair alarms in place for patient safety. Discussed plan of care for evening, including next Tikosyn dose and EKG. Pt verbalizes understanding. Call ballesteros within reach.
[2025-02-27] MEDS: TIKOSYN 125 MCG PO (03:23)
[2025-02-27 03:29] VITALS: BP 119/65
[2025-02-27 05:33] VITALS: BMI 30.2
[2025-02-27 05:54] LABS: Blood Urea Nitrogen 37 mg/dl (9-20); Calcium 9.2 mg/dl (8.4-10.2); Carbon Dioxide 28 mmol/L (22-30); Chloride 104 mmol/L (98-107); Estimated Creatinine Clearance 52 ml/min; Glucose 108 mg/dl (70-99); Potassium 4.0 mmol/L (3.5-5.1); Sodium 139 mmol/L (135-145); eGFR > 60.00
[2025-02-27 07:46] VITALS: BP 114/81
[2025-02-27] MEDS: PULMICORT 0.5 MG INH (07:54)
[2025-02-27] MEDS: ATROVENT NEBULES 0.5 MG INH (07:54)
--- NOTE | 2025-02-27 09:10 | W.PN.HOSP.TC ---
Addendum entered and electronically signed by Tamanna Gil MD 02/27/25 16:20:
I saw and evaluated the patient independently. I reviewed the resident�s note and agree with findings and plan as documented by Dr. Muñoz.
GENERAL: well developed, well nourished, male in no apparent distress
HEENT: NC/AT
HEART: regular rate and rhythm, +S1, +S2, bradycardia
LUNGS : clear to auscultation bilaterally
ABDOM: soft, nontender, nondistended, + bowel sounds
EXT: no cyanosis, clubbing, or edema
NEUROLOGIC: grossly intact
Acute on chronic HFpEF--proBNP was 6230 on admission--cont diuresis--weights down--cards cleared pt for discharge
Afib with RVR--h/o ablation x 2 and CV on 02/26/25--apprec cards--off cardizem drip--cont beta kt and Tikosyn
CAD: h/o NSTEMI and PEA arrest 06/14/22, h/o PCI 2021, cont statin/Plavix/BB
Obesity due to excess calories
Essential HTN-- cont BB/Imdur
HLD-- cont statin
Aortic Stenosis s/p TAVR
Right ICA Stenosis s/p stenting 12/02
Lung cancer s/p resection
DVT proph--Eliquis
code status--FULL CODE
Original Note:
Today's Communication/Plan
-
-stable for discharge
-on Tikosyn therapy-- will continue per cardiology
-GASKET NOTCHER 20mg lasix increased to 40mg-- per cardiology
-ECG prn
-monitoring for potassium, qtc
-strict I&O's and daily weight
Assessment / Plan
Assessment / Plan
89-year-old male with past medical history of paroxysmal atrial fibrillation, HFpEF, Parkinson's disease, Lung cancer s/p resection, hyperlipidemia, and hypertension presented to the ER for shortness of breath. To note the patient has stopped
taking his Lasix medication around January. He recently had a cardioversion on 01/29/2025.
#acute of chronic HFpEF
Dry weight: 167lbs (75.9kg) from cardiology notes 01/29/2025, admission wt: 83.6kg, today: 77.2kg
Troponin 0.017
-pBNP: 6230
ECG: AFib, Septal infarct (age undertermined). ST and T wave abnormality
-Lasix 40 mg IV BID
-daily weight and strict I&O's
-appreciate cardiology
# Paroxysmal atrial fibrillation
s/p PVI and CTI ablation 12/28/2024
s/p cardioversion 02/26/2025, 01/29/2025
-Tikosyn therapy-- Tikosyn 125mg Q12 per cardiology
-Metoprolol succinate 100 mg OD, metoprolol 50 mg at bedtime
-Eliquis 5 mg BID
- Isosorbide mononitrate 60 mg OD
- Clopidogrel 75 mg OD
-on telemetry
-ECG as needed
-K- 3.7--> repletion therapy, currently at 4.0
#Hypertension
-Continue metoprolol
#Hyperlipidemia
- Continue GASKET NOTCHER atorvastatin 40 mg HS
#Parkinson disease
Continue GASKET NOTCHER carbidopa/levodopa BID
#Lung cancer s/p resection
#restrictive lung disease
-continue on GASKET NOTCHER budesonide, ipratropium bromide
DVT prophylaxis: Eliquis
Full Code
Anticipated Discharge: Today
Subjective/Interval History
-
Date of Service: February 27, 2025
The patient has no specific complaints. He expresses wanting to go home soon. He denies shortness of breath, palpitation, dizziness, lightheadedness, and weakness.
Objective Data
-
Labs:
Laboratory Results
02/27/25 02/27/25
05:22 07:18
WBC Pending
Hgb Pending
Hct Pending
Plt Count Pending
Sodium 139 Cancelled
Potassium 4.0 Cancelled
Chloride 104 Cancelled
Carbon Dioxide 28 Cancelled
BUN 37 H Cancelled
Creatinine 0.9 Cancelled
Glucose 108 H Cancelled
Calcium 9.2 Cancelled
Vital Signs:
Vital Signs
Temp Pulse Resp BP Pulse Ox
97.7 F 57 16 114/81 98
02/27/25 07:43 02/27/25 08:00 02/27/25 07:57 02/27/25 07:46 02/27/25 07:57
I&O
02/26/25 02/27/25 02/28/25
06:59 06:59 06:59
Intake Total 1004 / 1004
Output Total 2074 50 / 50
Balance -1070 / -1070 -2024 / -2024 -50 / -50
Review of Systems
-
History Source: Patient
Constitutional: Denies Fever, Fatigue or Weakness
EENT: Reports No Symptoms Reported
Respiratory: Denies Cough or Trouble Breathing
Cardiac: Denies Chest Pain, Palpitations or Syncope
Abdomen/GI: Denies Abdominal Pain, Nausea, Vomiting or Diarrhea
Genitourinary: Reports No Symptoms
Musculoskeletal: Reports No Symptoms
Neuro: Denies Headache, Weakness or Ataxia
Physical Exam
-
General: No Apparent Distress and Conversant
HEENT: Normocephalic
Respiratory: Clear to Auscultation and Non Labored Respirations
Cardiac: Regular Rhythm and Bradycardic
GI: Soft, Nontender and Normal Bowel Sounds
Musculoskeletal: No Clubbing and No Cyanosis
Skin: Warm
Neuro: AO x 3
Hematologic / Lymphatic: No Lymphadenopathy
Psych: Calm
[2025-02-27] MEDS: KCL 20 MEQ PO (09:38)
[2025-02-27] MEDS: ELIQUIS 5 MG PO (09:39)
[2025-02-27] MEDS: TOPROL XL 100 MG PO (09:39)
[2025-02-27] MEDS: PLAVIX 75 MG PO (09:39)
[2025-02-27] MEDS: IMDUR (EXTENDED RELEASE) 60 MG PO (09:39)
[2025-02-27] MEDS: FLUSH (NSS) 2 FLUSH IV (09:39)
[2025-02-27] MEDS: LASIX 40 MG IV (09:39)
[2025-02-27] MEDS: SINEMET 25-100 1 TABLET PO (09:39)
[2025-02-27 09:49] LABS: Hematocrit 41.1 % (39.0-52.0); Hemoglobin 13.8 g/dL (13.0-18.0); Mean Corp Hgb Conc. 33.6 g/dL (33.0-37.0); Mean Corpuscular Volume 90.1 fL (80.0-94.0); Platelet Count 231 10^3/uL (130-400); Red Cell Dist. Width 15.5 % (11.5-14.5)
[2025-02-27] MEDS: DESENEX/MITRAZOL/ZEASORB TOPICAL (10:26)
[2025-02-27 10:36] VITALS: BP 140/63
--- NOTE | 2025-02-27 10:41 | W.PN.CARDCBS ---
Addendum entered and electronically signed by Rojelio Banks DO 02/27/25 13:23:
I saw and examined the patient.
The Credit Or Loans Officer's note was reviewed and I agree with the note.
Comment:
Plan:
Stable for d/c from cardiac standpoint.
Transition to lasix 40 mg daily
QTc stable on Tikosyn 125 mcg BID, outpt monitoring of QTc
Outpt follow up Mar 04 arranged.
Primary service notified.
Original Note:
Today's Communication / Plan
-
Transition to oral diuretics, Lasix 40 mg daily
Okay to discharge on Tikosyn 125 mcg twice daily
Follow-up in office is arranged for 03/04/2025 at 1:20 PM
Impression / Plan
-
PCP: Dr. Mayfield
Reservations Sales Agent: Dr. Banks
Impression:
Presented with SOB 02/24/2025
Acute on chronic HFpEF
admission for acute on chronic HFpEF 01/04/25-01/07/25
Paroxysmal Afib
h/o atypical atrial flutter and atrial tachycardia
s/p PVI 03/28/15
s/p PVI and atrial flutter ablation 02/14/21
Previous Multaq therapy, stopped after 02/14/21 ablation
s/p PVI CTI ablation for right atrial flutter 12/28/24
Chronic Tikosyn therapy since 06/2021, stopped after ablation 12/28/24
-s/p cardioversion 01/29/2025
-Tikosyn restarted 02/25/2025 at previous dose of 250 mcg bid. QTc prolonged to 531 msec and dose reduced to 125 mcg bid.
-s/p cardioversion 02/26/2025, sinus rhythm restored
Chronic Eliquis therapy
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
h/o NSTEMI and PEA arrest treated with CPR and Epi 06/14/22
CAD
LCx and proximal LAD stents, patent by cath 05/14/2022
NSTEMI and IFR positive long diffuse mid LAD 50-60% stenosis s/p SONDRA to LAD 06/06/22
cath with stable CAD, patent LAD/circ stents 06/14/22
HTN
Hyperlipidemia
Parkinson's disease
COPD
Elevated troponin
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
Echo 06/05/2022: EF 75%, no WMA, aortic valve peak/mean 63/35 mmHg and FANY 1.0 cm sq, mild aortic regurgitation, mild MR
Echo 08/17/2022: EF 65 to 70%, stage II diastolic dysfunction, severe biatrial dilation, moderate MR, MAC, status post TAVR with mean gradient 6 mmHg trace AI, moderate TR, moderate to severe pulmonary hypertension
Echo 09/17/2022: EF 65 to 70%, moderate LVH, mild to moderate MR, well-seated TAVR with peak/mean gradients 19/8 mmHg, mild TR, estimated PAP 47 mmHg
Echo 10/04/2023: EF 55 to 60%, TAVR well-seated with peak/mean 15/8 mmHg
Echo 08/06/2024: EF 60 to 65%, mild MR, TAVR well-seated peak/mean 17/10 mmHg
Echo 01/04/2025: EF 60 to 65%, mild concentric LVH, mild MR, TAVR well-seated peak/mean 17/7 mmHg, no aortic regurgitation, mild TR, dilated IVC that does not collapse, small PFO/ASD following PVI 12/28/2024
Plan:
-Acute on chronic HFp EF
-proBNP 6230 on admission
-Continue IV diuresis with Lasix 40 mg IV twice daily, wt down 1 lb overnight and at least 8 lbs since admission using standing scale to wt of 170 lbs. Previous dry wt 167lbs
-okay to transition to oral diuretics. Pt had stopped diuretics in home setting due to frequent urination. He was on Lasix 20 mg daily COATING MIXER but had stopped med. Will change to Lasix 40 mg daily. Compliance with diuretics discussed
-consider addition of Spironolactone and SGLT2 however will wait for now as he is newly back on Tikosyn. Would like to make sure renal function stablilized on Tikosyn prior to adding additional meds
-creat stable 0.9
-Daily weights and I&O's
-EF preserved on echo 01/04/2025 and previously placed TAVR is well-seated with peak/mean 17/7 mmHg
-Afib
-recurrent afib (2nd reoccurrence, had CV 01/29/2025) s/p PVI and CTI flutter ablation 12/28/2024
-restarted Tikosyn at previous dose of 250 mcg every 12 hours which he was on prior to ablation. has rec'd 2 doses so far. Remains in afib/flutter, rhythm now more regular. HRs 90s.
-carotid sinus massage performed this morning to slow rhythm to help determine if he is in sinus vs afib/flutter - had 6 sec pause - flutter waves visible, confirming aflutter/fib. Pt was asympomatic.
-proceed with CV today
-QTc now more prolonged at 519 msec. May need to reduce Tikosyn dose. Will have repeat EKG following cardioversion to reassess.
-K 4.0. Cont on KCl 20 meq daily starting tomorrow.
-mag 2.0 02/26/25
-Outpatient dose of Eliquis 5 mg BID (age 89, Cre 0.9 wt 79 kg) has been continued
-Has follow-up in cardiology office on 03/04/2025 at 120 with me
-CAD
-Patient is chronically on Plavix for history of carotid disease and CAD. He is status post PCI with SONDRA to OM2 and LAD in 05/2022
-no CP
-Troponin 0.017
-cont med management of CAD with isosorbide, beta-kt, Plavix, statin
- LDL 76, Ideally should be less than 55, consider uptitrate atorvastatin
Progress Note - Reservations Sales Agent
Subjective
Date of Service: February 27, 2025
Maintaining sinus rhythm
No palpitations, lightheadedness, shortness of breath
Weight continues to trend down
QTc Improved at 466 ms on repeat EKG today
Objective
Labs:
02/27/25 09:35
02/27/25 07:18
Labs
Hgb 13.8 g/dL (13.0-18.0) 02/27/25 09:35
Hct 41.1 % (39.0-52.0) 02/27/25 09:35
Plt Count 231 10^3/uL (130-400) 02/27/25 09:35
Sodium Cancelled 02/27/25 07:18
Potassium Cancelled 02/27/25 07:18
BUN Cancelled 02/27/25 07:18
Creatinine Cancelled 02/27/25 07:18
Glucose Cancelled 02/27/25 07:18
Troponins
02/24/25
16:44
Troponin I 0.017
Vital Signs and I&O:
Vital Signs
Temp Pulse Resp BP Pulse Ox
97.6 F 57 18 114/81 95
02/27/25 10:38 02/27/25 08:00 02/27/25 10:38 02/27/25 07:46 02/27/25 10:38
Vital Signs
Temp Pulse Resp BP Pulse Ox
97.6 F 57 18 114/81 95
02/27/25 10:38 02/27/25 08:00 02/27/25 10:38 02/27/25 07:46 02/27/25 10:38
Intake & Output
02/25/25 02/26/25 02/27/25 02/28/25
06:59 06:59 06:59 06:59
Intake Total 480 / 480 1005 / 1005
Output Total 2470 / 2470 2074 50 / 50
Balance -1989 -1069 / -1069 -2024 -
Physical Exam
Physical Exam
GEN: No distress, awake, Ox3
HEENT: supple, anicteric, mmm
LUNGS: CTA, no wheezes/rales
CV: Reg, S1/S2,no murmur
ABD: soft, BS+, NT/ND
EXT: No edema
NEURO: Gross non-focal
SKIN: No rash
[2025-02-27 14:34] VITALS: BP 137/61
--- NOTE | 2025-02-27 17:48 | W.DCSUMMARY ---
Addendum entered and electronically signed by Tamanna Gil MD 02/28/25 06:32:
Read, reviewed, and agree. See same day progress note for additional details. Time spent coordinating care, DC planning, review of DC plan of care with resident, transition of care, review of records in EMR, med rec, consults, notes, d/w
consultants, nursing, family, and CM = 31 minutes.
Original Note:
Discharge Summary
Discharge Data
Date of Admission: 02/24/25
Date of Discharge: 02/27/25
-
Pending Results: No
Hospital Course
Discharging Physician : Tamanna Gil MD, Rody Muñoz MD
Disposition : Home
Primary care physician : Dr. Reza Mayfield
Principal Discharge diagnosis : Acute on Chronic Heart Failure , Paroxysmal Atrial Fibrillation status post Cardioversion
Chronic Discharge diagnosis : Hypertension, Hyperlipidemia, Parkinson's Disease
Hospital Course : Patient is a 89-year-old male with past medical history significant for hypertension, hyperlipidemia, HFpEF, Parkinson disease and paroxysmal atrial fibrillation who presented to Emergency Department for evaluation of shortness of
breath suspected to be associated with non-compliance of Lasix medication.
Upon arrival in Emergency Department, he was in rapid atrial fibrillation and had lower extremity edema. BNP 6230. Based on his condition and history, intravenous diuretics were administered to manage fluid retention, and an intravenous bolus and
drip of diltiazem were initiated to control the heart rate. The patient was admitted to telemetry for further management and evaluation.
The following problems were addressed during this hospitalization:
# Acute on chronic HFpEF
According to cardiology notes dated 01/29/2025, her dry weight is 167 lbs (75.9 kg). On admission, his weight was 83.6 kg, which has decreased to 77.2 kg today following diuresis. Initial laboratory data showed a troponin level of 0.017 ng/mL and a
markedly elevated pro-BNP of 6230 pg/mL. He was� treated with intravenous Lasix 40 mg twice daily. Daily weights and strict intake and output monitoring are maintained. Cardiology involvement and recommendations have been appreciated throughout his
care.
# Paroxysmal atrial fibrillation
The patient has a history of paroxysmal atrial fibrillation. He was admitted to telemetry. Home medications continued which included metoprolol succinate 100 mg once daily, metoprolol 50 mg at bedtime, Eliquis 5 mg twice daily, isosorbide
mononitrate 60 mg once daily, and clopidogrel 75 mg once daily. Atrial Fibrillation persisted, thus patient transferred to IVU and resumed on Tikosyn 125 mg every 12 hours per cardiology guidance, he also underwent an uncomplicated cardioversion on
02/26/2025. Telemetry observation continued and ECG were obtained as needed.
#Hypertension
The patient's metoprolol therapy was continued as per prior regimen
# Hyperlipidemia
The patient's atorvastatin 40 mg is continued as per home regimen
#Parkinson's disease
�Continued carbidopa/levodopa twice daily as per home regimen
#Lung cancer s/p resection
#restrictive lung disease
-continued on budesonide, ipratropium bromide as per home regimen
Important imaging findings :
Chest X Ray (02/24/2025):
FINDINGS:
No focal consolidation or pneumothorax. Trace bilateral pleural effusions. Stable enlargement of the cardiac silhouette. Aortic valve prosthesis. Chronic degenerative changes of the spine.
IMPRESSION:
Trace bilateral pleural effusions. Cardiomegaly.
Procedure findings :
Discharge Plan
-
Patient Disposition: Home (Routine Discharge)
Discharge Diagnosis/Procedures: Acute on Chronic Heart Failure , Paroxysmal Atrial Fibrillation status post Cardioversion, Hypertension, Hyperlipidemia, Parkinson's Disease
Condition: Fair
Diet: Low Cholesterol
Activity: As tolerated
Driving Restrictions: No driving for 24 hours
Bathing Restrictions: OK to Shower
Blood Work: Repeat BMP in 1 week
Specialty Instructions: Weigh Daily- Call MD for wt gain/loss 3 lbs overnight/5 lbs in 1 week
Referrals:
Reza Mayfield DO [Family Provider, Internal Medicine] - in less than 1 week
Cristina Nelson CRNP [Specified Professional Personl, Cardiology] - 03/04/25 1:20 pm
Referral Note: You have an appointment with Dr. Banks's nurse practitioner, Cristina Nelson, at the [facility].
Prescriptions:
New
dofetilide [Tikosyn] 125 mcg capsule
125 mcg PO Q12H 30 Days Qty: 60 5RF
furosemide 40 mg Tablet
40 mg PO DAILY Qty: 30 0RF
(DME) Basic Metabolic Panel
See Rx Instructions .ROUTE .MEDSUPPLY Qty: 1 0RF
Rx Instructions:
Repeat Basic Metabolic Panel in 1 week
Diagnosis: Acute on Chronic Heart Failure with preserved Ejection Fraction, Atrial Fibrillation on Tikosyn Therapy
Send results to PCP
Continued
atorvastatin 40 MG tablet
40 mg PO HS
clopidogrel 75 mg Tablet
75 mg PO DAILY Qty: 30 11RF
Eliquis 5 MG tablet
5 mg PO BID Qty: 0 0RF
carbidopa-levodopa 25-100 mg tablet
1 tab PO BID
isosorbide mononitrate 60 mg Tablet Extended Release 24 Hr
60 mg PO DAILY
ipratropium bromide 17 mcg/actuation Hfa Aerosol Inhaler
1 puff INHALATION R DAILY
budesonide 0.5 mg/2 mL Suspension For Nebulization
0.5 mg INHALATION R DAILY
metoprolol succinate 100 mg Tablet Extended Release 24 Hr
100 mg PO DAILY
Metoprolol Succinate Er tablet
50 mg PO HS
Discontinued
furosemide 20 mg Tablet
20 mg PO DAILY 30 Days Qty: 30 0RF
Discharge Orders:
Discharge Patient (As Directed); Ordered 02/27/25
Ordered By: Rody Muñoz
Care Plan Goals
Care Plan Goals:
Problem: Readiness for enhanced knowledge related to diagnosis and treatment plan
Goal: Understand your diagnosis and treatment plan needs, including medications if applicable.
Instructions: Know your diagnosis, underlying causes and treatment plan options, including medications if applicable. Consult with your health care team to learn about your diagnosis and treatment plan, including medications if applicable.
Discharge Date and Time
Discharge Date/Time: 02/27/25 16:09
Print Language: YAKUT
== END 2025-02-27 16:09 | disposition home or self-care (01) | DRG 291 ==
LOC: IVU 20:53
PROVIDERS: Emergency Medicine; Internal Medicine Cardiovascular Disease; Nurse Practitioner Family; ADMITTING PHYSICIAN Student in an Organized Health Care Education/Training Program; ATTENDING PHYSICIAN Internal Medicine; EMERGENCY PHYSICIAN Emergency Medicine; FAMILY PHYSICIAN Internal Medicine; OTHER PHYSICIAN Nuclear Medicine Nuclear Cardiology
PROC: 5A2204Z Restoration of Cardiac Rhythm, Single (ICD-10-PCS; 2025-02-26)
DX: I11.0 Hypertensive heart disease with heart failure (principal); I50.33 Acute on chronic diastolic (congestive) heart failure; I48.4 Atypical atrial flutter; I48.0 Paroxysmal atrial fibrillation; I25.10 Atherosclerotic heart disease of native coronary artery without angina pectoris; E78.00 Pure hypercholesterolemia, unspecified; G20.A1 Parkinson's disease without dyskinesia, without mention of fluctuations; J44.9 Chronic obstructive pulmonary disease, unspecified; Z95.2 Presence of prosthetic heart valve; Z87.891 Personal history of nicotine dependence; Z85.118 Personal history of other malignant neoplasm of bronchus and lung; Z79.899 Other long term (current) drug therapy; I25.2 Old myocardial infarction; Z79.01 Long term (current) use of anticoagulants; Z79.02 Long term (current) use of antithrombotics/antiplatelets; Z79.51 Long term (current) use of inhaled steroids; Z95.5 Presence of coronary angioplasty implant and graft
CPT/HCPCS: 71046; 80048; 80053; 80061; 83735; 83880; 84100; 84443; 84484; 85025; 85027; 92960; 93005; 94640; 96374; 96375; 96376; 99285